=== PATIENT | female | born 1930 | race Caucasian/White ===

== ENCOUNTER 2017-02-26 21:03 | Inpatient (IN) | payer MEDICARE, OTHER ==
[2017-02-26] MEDS: SOD CHLORIDE 0.9% 500 ML IV (21:37)
[2017-02-26] MEDS: morphine 4 MG/ML VIAL IV (21:38)
[2017-02-26] MEDS: ONDANSETRON 4 MG INJ IV (21:38)
[2017-02-26 21:40] LABS: ADD MAN DIFF? NO
[2017-02-26 21:44] LABS: BASOPHILS % 0.3 % (0.0-2.0); EOSINOPHILS # 0.1 10^3/ul (0.0-0.5); EOSINOPHILS % 1.2 % (0.0-7.0); HEMATOCRIT 39.5 % (37.0-47.0); HEMOGLOBIN 12.2 g/dl (12.0-16.0); LYMPHOCYTES # 1.7 10^3/ul (0.8-2.9); LYMPHOCYTES % 15.2 % (15.0-51.0); MEAN CORPUSCULAR HEMOGLOBIN 30.7 pg (29.0-33.0); MEAN CORPUSCULAR HGB CONC 30.9 g/dl (32.0-37.0); MEAN CORPUSCULAR VOLUME 99.2 fl (82.0-101.0); MEAN PLATELET VOLUME 10.2 fl (7.4-10.4); MONOCYTE # 0.6 10^3/ul (0.3-0.9); MONOCYTES % 5.1 % (0.0-11.0); NEUTROPHIL # 8.7 10^3/ul (1.6-7.5); NEUTROPHILS % 77.3 % (39.0-77.0); PLATELET COUNT 226 10^3/UL (140-415); RED BLOOD COUNT 3.98 10^6/ul (4.20-5.40); RED CELL DISTRIBUTION WIDTH 14.9 % (11.5-14.5)
[2017-02-26 21:44] LABS: WHITE BLOOD COUNT 11.3 10^3/ul (4.8-10.8)
[2017-02-26 22:04] LABS: INR 0.93; PROTIME 12.5 Sec (11.9-14.9)
[2017-02-26 22:07] LABS: ALANINE AMINOTRANSFERASE 26 IU/L (13-69); ALBUMIN 3.9 g/dl (3.3-4.9); ALBUMIN/GLOBULIN RATIO 1.11; ALKALINE PHOSPHATASE 115 IU/L (42-121); ANION GAP 13 (8-16); ASPARTATE AMINO TRANSFERASE 19 IU/L (15-46); BILIRUBIN,INDIRECT 0.1 mg/dl (0-1.1); BILIRUBIN,TOTAL 0.1 mg/dl (0.2-1.3); BLOOD UREA NITROGEN 26 mg/dl (7-20); CALCIUM 9.2 mg/dl (8.4-10.2); CARBON DIOXIDE 32 mmol/L (21-31); CHLORIDE 96 mmol/L (97-110); CREATININE 0.97 mg/dl (0.44-1.00); GLUCOSE 381 mg/dl (70-220); LIPASE 152 U/L (23-300); POTASSIUM 4.2 mmol/L (3.5-5.1); SODIUM 137 mmol/L (135-144); TOTAL PROTEIN 7.4 g/dl (6.1-8.1)
[2017-02-26 22:21] LABS: TROPONIN-I < 0.012 ng/ml (0.00-0.12)
[2017-02-26] MEDS: HYDROmorphONE 1 MG/ML SYG IV (22:33)
[2017-02-26 23:01] LABS: ADD UMIC NO; UR ASCORBIC ACID 40 mg/dL (NEGATIVE); UR BILIRUBIN (Dip) NEGATIVE (NEGATIVE); UR BLOOD (Dip) NEGATIVE (NEGATIVE); UR CLARITY CLEAR (CLEAR); UR COLOR YELLOW (YELLOW); UR GLUCOSE (Dip) 3+ mg/dL (NEGATIVE); UR KETONES (Dip) NEGATIVE (NEGATIVE); UR LEUKOCYTE ESTERASE (Dip) NEGATIVE Leu/ul (NEGATIVE); UR NITRITE (Dip) NEGATIVE (NEGATIVE); UR SPECIFIC GRAVITY (Dip) 1.017 (1.003-1.030); UR TOTAL PROTEIN (Dip) NEGATIVE (NEGATIVE); UR UROBILINOGEN (Dip) NEGATIVE (NEGATIVE)
[2017-02-27] MEDS: HYDROmorphONE 1 MG/ML SYG IV (02:14)
[2017-02-27] MEDS ORDERED: HYDROmorphONE 1 MG/ML SYG (11:24)
[2017-02-27] MEDS ORDERED: GLUCAGON 1 MG INJ IM (13:00)
[2017-02-27] MEDS ORDERED: GLUCOSE GEL 15 GRAM TUBE PO ×2 (13:00)
[2017-02-27] MEDS ORDERED: DEXTROSE 50% 50 ML SYRINGE IV ×2 (13:00)
[2017-02-27] MEDS ORDERED: GLUCOSE GEL 15 GRAM TUBE BUCCAL (13:00)
[2017-02-27] MEDS ORDERED: LEVALBUTEROL (NEB) 0.63 MG/3 ML AMP HHN (14:00)
[2017-02-27] MEDS: ONDANSETRON 4 MG INJ IV ×2 (16:34→20:52)
[2017-02-27] MEDS: morphine 2 MG INJ IV ×2 (16:34→20:52)
[2017-02-27] MEDS: INSULIN ASPART [NOVOLOG] 3 ML PEN SC ×3 (18:09→21:00)
[2017-02-27] MEDS: INSULIN GLARGINE [LANtus] 3 ML PEN SC (19:16)
[2017-02-27] MEDS: FAMOTIDINE 20 MG TAB PO (20:52)
[2017-02-27] MEDS: FERROUS SULFATE (EC) 325 MG TAB PO (20:53)
[2017-02-27] MEDS: ATORVASTATIN 40 MG TAB PO (20:53)
[2017-02-27] MEDS: METOPROLOL (XL) 50 MG TAB PO (20:54)
[2017-02-28] MEDS: ACCU-CHEK XX (02:00)
[2017-02-28] MEDS: morphine 2 MG INJ IV ×3 (02:07→15:19)
[2017-02-28 06:09] LABS: ADD MAN DIFF? NO
[2017-02-28 06:12] LABS: BASOPHILS % 0.3 % (0.0-2.0); EOSINOPHILS # 0.2 10^3/ul (0.0-0.5); EOSINOPHILS % 1.4 % (0.0-7.0); HEMATOCRIT 37.9 % (37.0-47.0); HEMOGLOBIN 11.6 g/dl (12.0-16.0); LYMPHOCYTES # 1.8 10^3/ul (0.8-2.9); LYMPHOCYTES % 12.2 % (15.0-51.0); MEAN CORPUSCULAR HEMOGLOBIN 30.9 pg (29.0-33.0); MEAN CORPUSCULAR HGB CONC 30.6 g/dl (32.0-37.0); MEAN CORPUSCULAR VOLUME 101.1 fl (82.0-101.0); MEAN PLATELET VOLUME 10.8 fl (7.4-10.4); MONOCYTE # 0.8 10^3/ul (0.3-0.9); MONOCYTES % 5.3 % (0.0-11.0); NEUTROPHIL # 11.8 10^3/ul (1.6-7.5); PLATELET COUNT 219 10^3/UL (140-415); RED BLOOD COUNT 3.75 10^6/ul (4.20-5.40); RED CELL DISTRIBUTION WIDTH 15.1 % (11.5-14.5)
[2017-02-28 06:12] LABS: WHITE BLOOD COUNT 14.7 10^3/ul (4.8-10.8)
[2017-02-28 06:51] LABS: ALANINE AMINOTRANSFERASE 26 IU/L (13-69); ALBUMIN 3.7 g/dl (3.3-4.9); ALBUMIN/GLOBULIN RATIO 1.15; ALKALINE PHOSPHATASE 90 IU/L (42-121); ANION GAP 14 (8-16); ASPARTATE AMINO TRANSFERASE 20 IU/L (15-46); BILIRUBIN,INDIRECT 0.5 mg/dl (0-1.1); BILIRUBIN,TOTAL 0.5 mg/dl (0.2-1.3); BLOOD UREA NITROGEN 17 mg/dl (7-20); CALCIUM 8.8 mg/dl (8.4-10.2); CARBON DIOXIDE 33 mmol/L (21-31); CHLORIDE 100 mmol/L (97-110); GLUCOSE 173 mg/dl (70-220); MAGNESIUM 1.9 mg/dl (1.7-2.5); POTASSIUM 4.5 mmol/L (3.5-5.1); SODIUM 142 mmol/L (135-144); TOTAL PROTEIN 6.9 g/dl (6.1-8.1)
[2017-02-28 07:08] LABS: FREE THYROXINE INDEX (Calc) 2.68 ug/ml (0.65-3.89); T3 UPTAKE 43.2 % (23.5-40.5); T4 (THYROXINE) 6.2 ug/dl (5.5-11.0)
[2017-02-28 08:12] LABS: HEMOGLOBIN A1C 7.1 % (0-5.9)
[2017-02-28] MEDS: INSULIN ASPART [NOVOLOG] 3 ML PEN SC ×7 (08:18→21:00)
[2017-02-28] MEDS: FAMOTIDINE 20 MG TAB PO ×2 (08:19→20:59)
[2017-02-28] MEDS: FERROUS SULFATE (EC) 325 MG TAB PO ×2 (08:19→20:59)
[2017-02-28] MEDS: ENOXAPARIN 30 MG/0.3 ML SYG SC (08:21)
[2017-02-28] MEDS: FUROSEMIDE 20 MG TAB PO (08:22)
[2017-02-28] MEDS: POTASSIUM CHLORIDE (SR) 20 MEQ TAB PO (08:23)
[2017-02-28] MEDS: METOPROLOL (XL) 50 MG TAB PO ×2 (08:23→20:59)
[2017-02-28] MEDS: ASPIRIN (EC) 81 MG TAB PO (08:23)
[2017-02-28] MEDS: HYDROmorphONE 1 MG/ML SYG IV (11:24)
[2017-02-28] MEDS: ONDANSETRON 4 MG INJ IV (15:19)
[2017-02-28 20:33] LABS: B-TYPE NATRIURETIC PEPTIDE 1010 PG/ML (0-450)
[2017-02-28] MEDS: ATORVASTATIN 40 MG TAB PO (20:59)
[2017-02-28] MEDS: INSULIN GLARGINE [LANtus] 3 ML PEN SC (21:00)
[2017-03-01] MEDS: morphine 2 MG INJ IV (00:35)
[2017-03-01] MEDS: ACCU-CHEK XX (01:56)
[2017-03-01] MEDS: LORAZEPAM 2 MG INJ IV (02:10)
[2017-03-01 02:34] LABS: TROPONIN-I 0.069 ng/ml (0.00-0.12)
[2017-03-01 07:57] LABS: ADD MAN DIFF? NO
[2017-03-01 08:06] LABS: WHITE BLOOD COUNT 12.2 10^3/ul (4.8-10.8)
[2017-03-01 08:06] LABS: BASOPHILS % 0.3 % (0.0-2.0); EOSINOPHILS # 0.3 10^3/ul (0.0-0.5); EOSINOPHILS % 2.1 % (0.0-7.0); HEMATOCRIT 37.7 % (37.0-47.0); HEMOGLOBIN 11.6 g/dl (12.0-16.0); LYMPHOCYTES # 1.9 10^3/ul (0.8-2.9); LYMPHOCYTES % 15.9 % (15.0-51.0); MEAN CORPUSCULAR HEMOGLOBIN 30.9 pg (29.0-33.0); MEAN CORPUSCULAR HGB CONC 30.8 g/dl (32.0-37.0); MEAN CORPUSCULAR VOLUME 100.3 fl (82.0-101.0); MEAN PLATELET VOLUME 10.7 fl (7.4-10.4); MONOCYTE # 0.9 10^3/ul (0.3-0.9); MONOCYTES % 7.2 % (0.0-11.0); NEUTROPHILS % 73.8 % (39.0-77.0); PLATELET COUNT 203 10^3/UL (140-415); RED BLOOD COUNT 3.76 10^6/ul (4.20-5.40); RED CELL DISTRIBUTION WIDTH 15.1 % (11.5-14.5)
[2017-03-01] MEDS: INSULIN ASPART [NOVOLOG] 3 ML PEN SC ×7 (08:19→22:49)
[2017-03-01 08:25] LABS: ALANINE AMINOTRANSFERASE 22 IU/L (13-69); ALBUMIN 3.7 g/dl (3.3-4.9); ALBUMIN/GLOBULIN RATIO 1.05; ALKALINE PHOSPHATASE 88 IU/L (42-121); ANION GAP 12 (8-16); ASPARTATE AMINO TRANSFERASE 22 IU/L (15-46); BILIRUBIN,INDIRECT 0.7 mg/dl (0-1.1); BILIRUBIN,TOTAL 0.7 mg/dl (0.2-1.3); BLOOD UREA NITROGEN 22 mg/dl (7-20); CALCIUM 9.2 mg/dl (8.4-10.2); CARBON DIOXIDE 37 mmol/L (21-31); CHLORIDE 94 mmol/L (97-110); CREATININE 0.73 mg/dl (0.44-1.00); GLUCOSE 202 mg/dl (70-220); INR 0.93; POTASSIUM 4.3 mmol/L (3.5-5.1); PROTIME 12.5 Sec (11.9-14.9); SODIUM 139 mmol/L (135-144); TOTAL PROTEIN 7.2 g/dl (6.1-8.1)
[2017-03-01 08:26] LABS: CHOL/HDL RATIO 2.3 RATIO; HDL CHOLESTEROL 56 mg/dl (33-92); LDL CHOLESTEROL,CALCULATED 53 mg/dl; PARTIAL THROMBOPLASTIN TIME 29.8 Sec (25.0-35.0); TRIGLYCERIDES 100 mg/dl (0-149)
[2017-03-01 08:26] LABS: CHOLESTEROL 129 mg/dl (100-200)
[2017-03-01 08:35] LABS: TROPONIN-I 0.051 ng/ml (0.00-0.12)
[2017-03-01] MEDS: POTASSIUM CHLORIDE (SR) 20 MEQ TAB PO (08:59)
[2017-03-01] MEDS: FAMOTIDINE 20 MG TAB PO ×2 (08:59→22:47)
[2017-03-01] MEDS: FERROUS SULFATE (EC) 325 MG TAB PO ×2 (08:59→22:47)
[2017-03-01] MEDS: METOPROLOL (XL) 50 MG TAB PO ×2 (09:00→22:47)
[2017-03-01] MEDS: FUROSEMIDE 20 MG TAB PO (09:00)
[2017-03-01] MEDS: ASPIRIN (EC) 81 MG TAB PO (09:00)
[2017-03-01] MEDS: ENOXAPARIN 30 MG/0.3 ML SYG SC (09:01)
[2017-03-01 13:08] LABS: TROPONIN-I 0.038 ng/ml (0.00-0.12)
[2017-03-01] MEDS: ATORVASTATIN 40 MG TAB PO (22:47)
[2017-03-01] MEDS: INSULIN GLARGINE [LANtus] 3 ML PEN SC (22:50)
[2017-03-02] MEDS: ACCU-CHEK XX (02:00)
[2017-03-02 06:21] LABS: ADD MAN DIFF? NO
[2017-03-02 06:39] LABS: BASOPHILS % 0.2 % (0.0-2.0); EOSINOPHILS # 0.1 10^3/ul (0.0-0.5); EOSINOPHILS % 0.8 % (0.0-7.0); HEMOGLOBIN 11.3 g/dl (12.0-16.0); LYMPHOCYTES # 1.5 10^3/ul (0.8-2.9); LYMPHOCYTES % 10.8 % (15.0-51.0); MEAN CORPUSCULAR HEMOGLOBIN 30.9 pg (29.0-33.0); MEAN CORPUSCULAR HGB CONC 31.4 g/dl (32.0-37.0); MEAN CORPUSCULAR VOLUME 98.4 fl (82.0-101.0); MEAN PLATELET VOLUME 10.8 fl (7.4-10.4); MONOCYTE # 0.9 10^3/ul (0.3-0.9); MONOCYTES % 6.9 % (0.0-11.0); NEUTROPHIL # 10.9 10^3/ul (1.6-7.5); NEUTROPHILS % 80.6 % (39.0-77.0); PLATELET COUNT 224 10^3/UL (140-415); RED BLOOD COUNT 3.66 10^6/ul (4.20-5.40); RED CELL DISTRIBUTION WIDTH 14.8 % (11.5-14.5)
[2017-03-02 06:39] LABS: WHITE BLOOD COUNT 13.5 10^3/ul (4.8-10.8)
[2017-03-02 07:17] LABS: ANION GAP 12 (8-16); BLOOD UREA NITROGEN 23 mg/dl (7-20); CALCIUM 8.6 mg/dl (8.4-10.2); CARBON DIOXIDE 36 mmol/L (21-31); CHLORIDE 94 mmol/L (97-110); GLUCOSE 212 mg/dl (70-220); POTASSIUM 4.1 mmol/L (3.5-5.1); SODIUM 138 mmol/L (135-144)
[2017-03-02] MEDS: INSULIN ASPART [NOVOLOG] 3 ML PEN SC ×9 (07:35→21:00)
[2017-03-02] MEDS: POTASSIUM CHLORIDE (SR) 20 MEQ TAB PO (08:37)
[2017-03-02] MEDS: FUROSEMIDE 20 MG TAB PO (08:37)
[2017-03-02] MEDS: FERROUS SULFATE (EC) 325 MG TAB PO ×2 (08:37→22:46)
[2017-03-02] MEDS: ASPIRIN (EC) 81 MG TAB PO (08:37)
[2017-03-02] MEDS: METOPROLOL (XL) 50 MG TAB PO ×2 (08:38→22:47)
[2017-03-02] MEDS: FAMOTIDINE 20 MG TAB PO ×2 (08:38→22:47)
[2017-03-02] MEDS: ENOXAPARIN 30 MG/0.3 ML SYG SC (08:39)
[2017-03-02] MEDS: ACETAMINOPHEN 325 MG TAB PO (17:29)
[2017-03-02] MEDS: ATORVASTATIN 40 MG TAB PO (22:48)
[2017-03-02] MEDS: INSULIN GLARGINE [LANtus] 3 ML PEN SC (23:04)
[2017-03-03] MEDS: ACCU-CHEK XX (02:00)
[2017-03-03] MEDS: INSULIN ASPART [NOVOLOG] 3 ML PEN SC ×8 (08:00→20:25)
[2017-03-03] MEDS: ASPIRIN (EC) 81 MG TAB PO (08:17)
[2017-03-03] MEDS: FAMOTIDINE 20 MG TAB PO ×2 (08:17→20:27)
[2017-03-03] MEDS: FERROUS SULFATE (EC) 325 MG TAB PO ×2 (08:17→20:28)
[2017-03-03] MEDS: FUROSEMIDE 20 MG TAB PO (08:18)
[2017-03-03] MEDS: POTASSIUM CHLORIDE (SR) 20 MEQ TAB PO (08:18)
[2017-03-03] MEDS: METOPROLOL (XL) 50 MG TAB PO ×2 (08:19→20:28)
[2017-03-03] MEDS: ENOXAPARIN 30 MG/0.3 ML SYG SC (08:25)
[2017-03-03] MEDS: morphine 2 MG INJ IV ×2 (12:51→17:58)
[2017-03-03] MEDS: INSULIN GLARGINE [LANtus] 3 ML PEN SC (20:24)
[2017-03-03] MEDS: ATORVASTATIN 40 MG TAB PO (20:27)
[2017-03-04] MEDS: ACCU-CHEK XX (02:00)
[2017-03-04 06:18] LABS: ADD MAN DIFF? NO
[2017-03-04] MEDS: ACETAMINOPHEN 325 MG TAB PO (06:31)
[2017-03-04 06:38] LABS: BASOPHILS % 0.4 % (0.0-2.0); EOSINOPHILS # 0.2 10^3/ul (0.0-0.5); EOSINOPHILS % 2.2 % (0.0-7.0); HEMATOCRIT 35.1 % (37.0-47.0); HEMOGLOBIN 11.4 g/dl (12.0-16.0); LYMPHOCYTES % 18.9 % (15.0-51.0); MEAN CORPUSCULAR HEMOGLOBIN 31.8 pg (29.0-33.0); MEAN CORPUSCULAR HGB CONC 32.5 g/dl (32.0-37.0); MEAN PLATELET VOLUME 10.6 fl (7.4-10.4); MONOCYTES % 9.8 % (0.0-11.0); NEUTROPHIL # 7.2 10^3/ul (1.6-7.5); NEUTROPHILS % 68.2 % (39.0-77.0); PLATELET COUNT 261 10^3/UL (140-415); RED BLOOD COUNT 3.58 10^6/ul (4.20-5.40); RED CELL DISTRIBUTION WIDTH 15.3 % (11.5-14.5)
[2017-03-04 06:38] LABS: WHITE BLOOD COUNT 10.6 10^3/ul (4.8-10.8)
[2017-03-04 06:55] LABS: ANION GAP 12 (8-16); BLOOD UREA NITROGEN 32 mg/dl (7-20); CALCIUM 8.7 mg/dl (8.4-10.2); CARBON DIOXIDE 36 mmol/L (21-31); CHLORIDE 95 mmol/L (97-110); CREATININE 0.76 mg/dl (0.44-1.00); GLUCOSE 196 mg/dl (70-220); SODIUM 139 mmol/L (135-144)
[2017-03-04] MEDS: INSULIN ASPART [NOVOLOG] 3 ML PEN SC ×7 (08:12→21:00)
[2017-03-04] MEDS: FAMOTIDINE 20 MG TAB PO ×2 (09:43→21:15)
[2017-03-04] MEDS: FUROSEMIDE 20 MG TAB PO (09:44)
[2017-03-04] MEDS: POTASSIUM CHLORIDE (SR) 20 MEQ TAB PO (09:44)
[2017-03-04] MEDS: FERROUS SULFATE (EC) 325 MG TAB PO ×2 (09:45→21:15)
[2017-03-04] MEDS: METOPROLOL (XL) 50 MG TAB PO ×2 (09:45→21:15)
[2017-03-04] MEDS: ASPIRIN (EC) 81 MG TAB PO (09:45)
[2017-03-04] MEDS: ENOXAPARIN 30 MG/0.3 ML SYG SC (09:47)
[2017-03-04] MEDS: ATORVASTATIN 40 MG TAB PO (21:15)
[2017-03-04] MEDS: INSULIN GLARGINE [LANtus] 3 ML PEN SC (21:17)
[2017-03-05] MEDS: ACCU-CHEK XX (02:00)
[2017-03-05] MEDS: morphine 2 MG INJ IV (04:42)
[2017-03-05 07:46] LABS: ADD MAN DIFF? NO
[2017-03-05 07:48] LABS: BASOPHILS % 0.3 % (0.0-2.0); EOSINOPHILS # 0.2 10^3/ul (0.0-0.5); EOSINOPHILS % 1.8 % (0.0-7.0); HEMATOCRIT 34.8 % (37.0-47.0); HEMOGLOBIN 10.9 g/dl (12.0-16.0); LYMPHOCYTES # 1.7 10^3/ul (0.8-2.9); LYMPHOCYTES % 16.6 % (15.0-51.0); MEAN CORPUSCULAR HEMOGLOBIN 30.9 pg (29.0-33.0); MEAN CORPUSCULAR HGB CONC 31.3 g/dl (32.0-37.0); MEAN CORPUSCULAR VOLUME 98.6 fl (82.0-101.0); MEAN PLATELET VOLUME 10.7 fl (7.4-10.4); MONOCYTES % 9.3 % (0.0-11.0); NEUTROPHIL # 7.4 10^3/ul (1.6-7.5); NEUTROPHILS % 71.5 % (39.0-77.0); PLATELET COUNT 285 10^3/UL (140-415); RED BLOOD COUNT 3.53 10^6/ul (4.20-5.40); RED CELL DISTRIBUTION WIDTH 15.1 % (11.5-14.5)
[2017-03-05 07:48] LABS: WHITE BLOOD COUNT 10.4 10^3/ul (4.8-10.8)
[2017-03-05 08:05] LABS: INR 0.99; PROTIME 13.2 Sec (11.9-14.9)
[2017-03-05 08:06] LABS: PARTIAL THROMBOPLASTIN TIME 30.5 Sec (25.0-35.0); THROMBIN TIME 14.2 SEC (13.8-19.1)
[2017-03-05 08:19] LABS: ANION GAP 13 (8-16); BLOOD UREA NITROGEN 28 mg/dl (7-20); CALCIUM 8.9 mg/dl (8.4-10.2); CARBON DIOXIDE 36 mmol/L (21-31); CHLORIDE 97 mmol/L (97-110); CREATININE 0.73 mg/dl (0.44-1.00); GLUCOSE 151 mg/dl (70-220); POTASSIUM 4.1 mmol/L (3.5-5.1); SODIUM 142 mmol/L (135-144)
[2017-03-05 08:22] LABS: PLATELET COUNT 285 10^3/UL (140-440)
[2017-03-05] MEDS: INSULIN ASPART [NOVOLOG] 3 ML PEN SC ×8 (10:05→22:16)
[2017-03-05] MEDS: ENOXAPARIN 30 MG/0.3 ML SYG SC (10:07)
[2017-03-05] MEDS: POTASSIUM CHLORIDE (SR) 20 MEQ TAB PO (10:08)
[2017-03-05] MEDS: FAMOTIDINE 20 MG TAB PO ×2 (10:08→20:19)
[2017-03-05] MEDS: FERROUS SULFATE (EC) 325 MG TAB PO ×2 (10:08→20:19)
[2017-03-05] MEDS: ASPIRIN (EC) 81 MG TAB PO (10:08)
[2017-03-05] MEDS: FUROSEMIDE 20 MG TAB PO (10:09)
[2017-03-05] MEDS: METOPROLOL (XL) 50 MG TAB PO ×2 (10:09→20:19)
[2017-03-05] MEDS: LORAZEPAM 2 MG INJ IV (10:19)
[2017-03-05] MEDS: INSULIN GLARGINE [LANtus] 3 ML PEN SC ×2 (20:16→22:14)
[2017-03-05] MEDS: ATORVASTATIN 40 MG TAB PO (20:19)
[2017-03-05] MEDS ORDERED: DEXTROSE 5%-0.45% NACL 1,000 ML IV (21:00)
[2017-03-05] MEDS ORDERED: INSULIN ASPART [NOVOLOG] 3 ML PEN SC (21:00)
[2017-03-05] MEDS: morphine LIQ (10 MG/5 ML) CUP PO (22:15)
[2017-03-06] MEDS: DEXTROSE 5%-0.45% NACL 1,000 ML IV (00:12)
[2017-03-06] MEDS: INSULIN ASPART [NOVOLOG] 3 ML PEN SC ×6 (01:10→20:47)
[2017-03-06] MEDS ORDERED: POLYMYXIN/BACITRACIN 1L IRRIG (06:52)
[2017-03-06] MEDS ORDERED: CEFAZOLIN 1 GM INJ (07:00)
[2017-03-06] MEDS: POLYMYXIN/BACITRACIN 1L IRRIG IRR (07:11)
[2017-03-06 07:14] LABS: ADD MAN DIFF? NO
[2017-03-06 07:20] LABS: PLATELET COUNT 314 10^3/UL (140-415)
[2017-03-06 07:39] LABS: ANION GAP 10 (8-16); BLOOD UREA NITROGEN 25 mg/dl (7-20); CARBON DIOXIDE 39 mmol/L (21-31); CHLORIDE 95 mmol/L (97-110); CREATININE 0.81 mg/dl (0.44-1.00); GLUCOSE 145 mg/dl (70-220); POTASSIUM 4.3 mmol/L (3.5-5.1); SODIUM 140 mmol/L (135-144)
[2017-03-06 07:40] LABS: PROTIME 13.3 Sec (11.9-14.9)
[2017-03-06 07:41] LABS: PARTIAL THROMBOPLASTIN TIME 30.2 Sec (25.0-35.0); THROMBIN TIME 15.5 SEC (13.8-19.1)
[2017-03-06 07:45] LABS: BASOPHILS % 0.3 % (0.0-2.0); EOSINOPHILS # 0.3 10^3/ul (0.0-0.5); EOSINOPHILS % 2.6 % (0.0-7.0); HEMATOCRIT 34.8 % (37.0-47.0); HEMOGLOBIN 11.2 g/dl (12.0-16.0); LYMPHOCYTES # 2.6 10^3/ul (0.8-2.9); LYMPHOCYTES % 25.2 % (15.0-51.0); MEAN CORPUSCULAR HEMOGLOBIN 31.8 pg (29.0-33.0); MEAN CORPUSCULAR HGB CONC 32.2 g/dl (32.0-37.0); MEAN CORPUSCULAR VOLUME 98.9 fl (82.0-101.0); MEAN PLATELET VOLUME 10.5 fl (7.4-10.4); MONOCYTE # 0.9 10^3/ul (0.3-0.9); MONOCYTES % 9.2 % (0.0-11.0); NEUTROPHIL # 6.3 10^3/ul (1.6-7.5); NEUTROPHILS % 62.2 % (39.0-77.0); PLATELET COUNT 320 10^3/UL (140-415); RED BLOOD COUNT 3.52 10^6/ul (4.20-5.40); RED CELL DISTRIBUTION WIDTH 15.2 % (11.5-14.5)
[2017-03-06 07:45] LABS: WHITE BLOOD COUNT 10.2 10^3/ul (4.8-10.8)
[2017-03-06] MEDS ORDERED: FENTAnyl 50 MCG/ML VIAL (08:02)
[2017-03-06] MEDS ORDERED: morphine SULFATE/PF (10 MG/10 ML) INJ (08:05)
[2017-03-06] MEDS ORDERED: PHENYLephrine (100 MCG/ML) 5ML SYG (08:46)
[2017-03-06] MEDS: POTASSIUM CHLORIDE (SR) 20 MEQ TAB PO (09:00)
[2017-03-06] MEDS: ENOXAPARIN 30 MG/0.3 ML SYG SC (09:00)
[2017-03-06] MEDS: FERROUS SULFATE (EC) 325 MG TAB PO ×2 (09:00→20:48)
[2017-03-06] MEDS: METOPROLOL (XL) 50 MG TAB PO ×2 (09:00→20:48)
[2017-03-06] MEDS: FAMOTIDINE 20 MG TAB PO ×2 (09:00→20:48)
[2017-03-06] MEDS: ASPIRIN (EC) 81 MG TAB PO (09:00)
[2017-03-06] MEDS: FUROSEMIDE 20 MG TAB PO (09:00)
[2017-03-06] MEDS ORDERED: ALBUTEROL 0.083% (NEB) 2.5 MG/3 ML AMP HHN (09:30)
[2017-03-06] MEDS ORDERED: hydrALAzine 20 MG INJ IV (09:30)
[2017-03-06] MEDS ORDERED: IPRATROPIUM (NEB) 0.5 MG/2.5 ML AMP HHN (09:30)
[2017-03-06] MEDS ORDERED: EPHEDrine SULFATE 50 MG/5 ML SYG IV (09:30)
[2017-03-06] MEDS ORDERED: MEPERIDINE 25 MG INJ IV (09:30)
[2017-03-06] MEDS ORDERED: OXYCODONE/ACETAMINOPHEN (5/325) TAB PO ×2 (09:30)
[2017-03-06] MEDS ORDERED: KETOROLAC 15 MG INJ IV (09:30)
[2017-03-06] MEDS ORDERED: HYDROmorphONE (0.2 MG/ML) 10ML SYG IV ×3 (09:30)
[2017-03-06] MEDS ORDERED: DIPHENHYDRAMINE 50 MG INJ IV ×2 (09:30)
[2017-03-06] MEDS ORDERED: NALBUPHINE HCL (10 MG/1 ML) INJ IV (09:30)
[2017-03-06] MEDS ORDERED: FENTAnyl 50 MCG/ML VIAL IV ×3 (09:30)
[2017-03-06] MEDS ORDERED: LABETALOL HCL 20MG INJ IV (09:30)
[2017-03-06] MEDS ORDERED: ONDANSETRON 4 MG INJ IV ×2 (09:30)
[2017-03-06] MEDS ORDERED: MIDAZOLAM 1 MG/ML 2 ML INJ IV (09:30)
[2017-03-06] MEDS ORDERED: NALOXONE (0.4 MG/ML) INJ IV (09:30)
[2017-03-06] MEDS ORDERED: HYDROmorphONE 0.5 MG/0.5 ML SYG IV ×2 (09:30)
[2017-03-06] MEDS ORDERED: TRIMETHOBENZAMIDE 100 MG/ML VIAL IM (09:30)
[2017-03-06] MEDS ORDERED: morphine 4 MG/ML VIAL IV (10:30)
[2017-03-06] MEDS ORDERED: CEFAZOLIN 1 GM/50 ML (PMX) 50 ML IVPB (10:30)
[2017-03-06 11:15] LABS: ADD MAN DIFF? NO
[2017-03-06 11:17] LABS: BASOPHIL # 0.1 10^3/ul (0.0-0.1); BASOPHILS % 0.4 % (0.0-2.0); EOSINOPHILS # 0.2 10^3/ul (0.0-0.5); EOSINOPHILS % 1.6 % (0.0-7.0); HEMATOCRIT 31.1 % (37.0-47.0); HEMOGLOBIN 9.8 g/dl (12.0-16.0); LYMPHOCYTES # 1.9 10^3/ul (0.8-2.9); MEAN CORPUSCULAR HEMOGLOBIN 31.6 pg (29.0-33.0); MEAN CORPUSCULAR HGB CONC 31.5 g/dl (32.0-37.0); MEAN CORPUSCULAR VOLUME 100.3 fl (82.0-101.0); MEAN PLATELET VOLUME 10.4 fl (7.4-10.4); MONOCYTE # 0.9 10^3/ul (0.3-0.9); NEUTROPHIL # 10.2 10^3/ul (1.6-7.5); NEUTROPHILS % 76.2 % (39.0-77.0); NUCLEATED RED BLOOD CELLS% 0.1 /100WBC (0.0-0.0); PLATELET COUNT 278 10^3/UL (140-415); RED CELL DISTRIBUTION WIDTH 15.1 % (11.5-14.5)
[2017-03-06 11:17] LABS: WHITE BLOOD COUNT 13.4 10^3/ul (4.8-10.8)
[2017-03-06] MEDS: D5W-0.45 NACL + KCL 20 MEQ 1,000 ML IV (12:04)
[2017-03-06 13:46] LABS: ANION GAP 12 (8-16); BLOOD UREA NITROGEN 25 mg/dl (7-20); CALCIUM 8.8 mg/dl (8.4-10.2); CARBON DIOXIDE 34 mmol/L (21-31); CHLORIDE 96 mmol/L (97-110); CREATININE 0.75 mg/dl (0.44-1.00); GLUCOSE 255 mg/dl (70-220); POTASSIUM 4.4 mmol/L (3.5-5.1); SODIUM 138 mmol/L (135-144)
[2017-03-06] MEDS: 1/2 NS + KCL 20 MEQ 1,000 ML IV (14:53)
[2017-03-06] MEDS: CEFAZOLIN 1 GM/50 ML (PMX) 50 ML IVPB ×2 (14:53→22:30)
[2017-03-06] MEDS: INSULIN GLARGINE [LANtus] 3 ML PEN SC (20:46)
[2017-03-06] MEDS: ATORVASTATIN 40 MG TAB PO (20:48)
[2017-03-06] MEDS: HYDROCODONE/APAP (5/325) TAB PO (20:49)
[2017-03-07] MEDS: INSULIN ASPART [NOVOLOG] 3 ML PEN SC ×5 (01:44→17:51)
[2017-03-07] MEDS: CEFAZOLIN 1 GM/50 ML (PMX) 50 ML IVPB ×3 (05:41→21:42)
[2017-03-07] MEDS: 1/2 NS + KCL 20 MEQ 1,000 ML IV ×2 (06:24→21:30)
[2017-03-07 06:38] LABS: ADD MAN DIFF? NO
[2017-03-07 06:45] LABS: WHITE BLOOD COUNT 12.4 10^3/ul (4.8-10.8)
[2017-03-07 06:45] LABS: BASOPHILS % 0.2 % (0.0-2.0); EOSINOPHILS # 0.2 10^3/ul (0.0-0.5); EOSINOPHILS % 1.7 % (0.0-7.0); HEMATOCRIT 25.2 % (37.0-47.0); HEMOGLOBIN 8.2 g/dl (12.0-16.0); LYMPHOCYTES # 1.6 10^3/ul (0.8-2.9); LYMPHOCYTES % 12.6 % (15.0-51.0); MEAN CORPUSCULAR HEMOGLOBIN 31.8 pg (29.0-33.0); MEAN CORPUSCULAR HGB CONC 32.5 g/dl (32.0-37.0); MEAN CORPUSCULAR VOLUME 97.7 fl (82.0-101.0); MEAN PLATELET VOLUME 10.6 fl (7.4-10.4); MONOCYTE # 1.2 10^3/ul (0.3-0.9); MONOCYTES % 9.3 % (0.0-11.0); NEUTROPHIL # 9.3 10^3/ul (1.6-7.5); NEUTROPHILS % 75.7 % (39.0-77.0); NUCLEATED RED BLOOD CELLS # 0.1 10^3/ul (0.0-0.0); NUCLEATED RED BLOOD CELLS% 0.7 /100WBC (0.0-0.0); PLATELET COUNT 298 10^3/UL (140-415); RED BLOOD COUNT 2.58 10^6/ul (4.20-5.40); RED CELL DISTRIBUTION WIDTH 15.2 % (11.5-14.5)
[2017-03-07] MEDS: FUROSEMIDE 20 MG TAB PO (08:58)
[2017-03-07] MEDS: FAMOTIDINE 20 MG TAB PO ×2 (08:59→21:35)
[2017-03-07] MEDS: ASPIRIN (EC) 81 MG TAB PO (08:59)
[2017-03-07] MEDS: METOPROLOL (XL) 50 MG TAB PO ×2 (08:59→21:34)
[2017-03-07] MEDS: FERROUS SULFATE (EC) 325 MG TAB PO ×2 (08:59→21:35)
[2017-03-07] MEDS: POLYETHYLENE GLYCOL 17 GM PACKET PO (09:00)
[2017-03-07] MEDS: POTASSIUM CHLORIDE (SR) 20 MEQ TAB PO (09:00)
[2017-03-07] MEDS: DOCUSATE SODIUM 100 MG CAP PO ×2 (09:00→21:35)
[2017-03-07] MEDS: ENOXAPARIN 40 MG/0.4 ML SYG SC (09:07)
[2017-03-07] MEDS: HYDROCODONE/APAP (5/325) TAB PO ×2 (09:16→23:11)
[2017-03-07] MEDS ORDERED: INSULIN ASPART [NOVOLOG] 3 ML PEN SC (21:00)
[2017-03-07] MEDS: ATORVASTATIN 40 MG TAB PO (21:35)
[2017-03-07] MEDS: Insulin NOVOLOG SS MILD Algorithm (SS with meals and bedtime) SC (21:38)
[2017-03-07] MEDS: INSULIN GLARGINE [LANtus] 3 ML PEN SC (21:41)
[2017-03-08] MEDS: 1/2 NS + KCL 20 MEQ 1,000 ML IV ×2 (01:07→17:09)
[2017-03-08] MEDS: CEFAZOLIN 1 GM/50 ML (PMX) 50 ML IVPB ×3 (05:35→22:16)
[2017-03-08] MEDS: Insulin NOVOLOG SS MILD Algorithm (SS with meals and bedtime) SC ×4 (07:30→21:00)
[2017-03-08] MEDS: DOCUSATE SODIUM 100 MG CAP PO ×2 (08:14→22:03)
[2017-03-08] MEDS: FUROSEMIDE 20 MG TAB PO (08:14)
[2017-03-08] MEDS: FERROUS SULFATE (EC) 325 MG TAB PO ×2 (08:14→22:04)
[2017-03-08] MEDS: POTASSIUM CHLORIDE (SR) 20 MEQ TAB PO (08:14)
[2017-03-08] MEDS: ASPIRIN (EC) 81 MG TAB PO (08:14)
[2017-03-08] MEDS: FAMOTIDINE 20 MG TAB PO ×2 (08:14→22:04)
[2017-03-08] MEDS: METOPROLOL (XL) 50 MG TAB PO ×2 (08:15→22:05)
[2017-03-08] MEDS: ENOXAPARIN 40 MG/0.4 ML SYG SC (08:16)
[2017-03-08] MEDS: HYDROCODONE/APAP (5/325) TAB PO ×2 (09:11→15:55)
[2017-03-08] MEDS: POLYETHYLENE GLYCOL 17 GM PACKET PO (09:11)
[2017-03-08] MEDS: INSULIN ASPART [NOVOLOG] 3 ML PEN SC (17:42)
[2017-03-08] MEDS: ATORVASTATIN 40 MG TAB PO (22:04)
[2017-03-08] MEDS: INSULIN GLARGINE [LANtus] 3 ML PEN SC (22:06)
[2017-03-09] MEDS: CEFAZOLIN 1 GM/50 ML (PMX) 50 ML IVPB ×3 (05:55→21:07)
[2017-03-09] MEDS: METOPROLOL (XL) 50 MG TAB PO ×2 (08:52→20:55)
[2017-03-09] MEDS: FAMOTIDINE 20 MG TAB PO ×2 (08:52→20:53)
[2017-03-09] MEDS: FUROSEMIDE 20 MG TAB PO (08:52)
[2017-03-09] MEDS: POLYETHYLENE GLYCOL 17 GM PACKET PO (08:52)
[2017-03-09] MEDS: ASPIRIN (EC) 81 MG TAB PO (08:52)
[2017-03-09] MEDS: POTASSIUM CHLORIDE (SR) 20 MEQ TAB PO (08:52)
[2017-03-09] MEDS: DOCUSATE SODIUM 100 MG CAP PO ×2 (08:52→20:53)
[2017-03-09] MEDS: FERROUS SULFATE (EC) 325 MG TAB PO ×2 (08:52→20:57)
[2017-03-09] MEDS: INSULIN ASPART [NOVOLOG] 3 ML PEN SC ×3 (08:53→17:40)
[2017-03-09] MEDS: Insulin NOVOLOG SS MILD Algorithm (SS with meals and bedtime) SC ×4 (08:54→20:59)
[2017-03-09] MEDS: ENOXAPARIN 40 MG/0.4 ML SYG SC (08:55)
[2017-03-09] MEDS: 1/2 NS + KCL 20 MEQ 1,000 ML IV (11:04)
[2017-03-09] MEDS: HYDROCODONE/APAP (5/325) TAB PO (15:46)
[2017-03-09] MEDS: morphine LIQ (10 MG/5 ML) CUP PO ×2 (17:45→21:03)
[2017-03-09] MEDS: ATORVASTATIN 40 MG TAB PO (20:53)
[2017-03-09] MEDS: INSULIN GLARGINE [LANtus] 3 ML PEN SC (21:01)
[2017-03-10] MEDS: 1/2 NS + KCL 20 MEQ 1,000 ML IV ×2 (03:56→21:58)
[2017-03-10] MEDS: CEFAZOLIN 1 GM/50 ML (PMX) 50 ML IVPB ×3 (05:57→21:57)
[2017-03-10 06:15] LABS: ADD MAN DIFF? NO
[2017-03-10 06:22] LABS: WHITE BLOOD COUNT 11.2 10^3/ul (4.8-10.8)
[2017-03-10 06:22] LABS: BASOPHILS % 0.3 % (0.0-2.0); EOSINOPHILS # 0.4 10^3/ul (0.0-0.5); EOSINOPHILS % 3.5 % (0.0-7.0); HEMATOCRIT 22.9 % (37.0-47.0); HEMOGLOBIN 7.2 g/dl (12.0-16.0); LYMPHOCYTES # 2.6 10^3/ul (0.8-2.9); LYMPHOCYTES % 23.3 % (15.0-51.0); MEAN CORPUSCULAR HEMOGLOBIN 31.9 pg (29.0-33.0); MEAN CORPUSCULAR HGB CONC 31.4 g/dl (32.0-37.0); MEAN CORPUSCULAR VOLUME 101.3 fl (82.0-101.0); MEAN PLATELET VOLUME 10.6 fl (7.4-10.4); MONOCYTES % 8.7 % (0.0-11.0); NEUTROPHILS % 62.6 % (39.0-77.0); NUCLEATED RED BLOOD CELLS% 0.4 /100WBC (0.0-0.0); PLATELET COUNT 395 10^3/UL (140-415); RED BLOOD COUNT 2.26 10^6/ul (4.20-5.40); RED CELL DISTRIBUTION WIDTH 15.7 % (11.5-14.5)
[2017-03-10 07:11] LABS: ANION GAP 11 (8-16); BLOOD UREA NITROGEN 15 mg/dl (7-20); CALCIUM 8.6 mg/dl (8.4-10.2); CARBON DIOXIDE 33 mmol/L (21-31); CHLORIDE 99 mmol/L (97-110); CREATININE 0.72 mg/dl (0.44-1.00); SODIUM 139 mmol/L (135-144)
[2017-03-10] MEDS: Insulin NOVOLOG SS MILD Algorithm (SS with meals and bedtime) SC ×4 (07:30→20:31)
[2017-03-10] MEDS: POLYETHYLENE GLYCOL 17 GM PACKET PO (09:48)
[2017-03-10] MEDS: FERROUS SULFATE (EC) 325 MG TAB PO ×2 (09:49→20:39)
[2017-03-10] MEDS: DOCUSATE SODIUM 100 MG CAP PO ×2 (09:49→20:39)
[2017-03-10] MEDS: FUROSEMIDE 20 MG TAB PO (09:50)
[2017-03-10] MEDS: FAMOTIDINE 20 MG TAB PO ×2 (09:50→20:39)
[2017-03-10] MEDS: POTASSIUM CHLORIDE (SR) 20 MEQ TAB PO (09:50)
[2017-03-10] MEDS: METOPROLOL (XL) 50 MG TAB PO ×2 (09:50→20:42)
[2017-03-10] MEDS: ASPIRIN (EC) 81 MG TAB PO (09:50)
[2017-03-10] MEDS: ENOXAPARIN 40 MG/0.4 ML SYG SC (09:51)
[2017-03-10] MEDS: INSULIN ASPART [NOVOLOG] 3 ML PEN SC ×3 (09:53→17:36)
[2017-03-10 15:25] LABS: ADD MAN DIFF? NO
[2017-03-10 15:26] LABS: BASOPHILS % 0.2 % (0.0-2.0); EOSINOPHILS # 0.4 10^3/ul (0.0-0.5); EOSINOPHILS % 2.9 % (0.0-7.0); HEMATOCRIT 23.8 % (37.0-47.0); HEMOGLOBIN 7.4 g/dl (12.0-16.0); LYMPHOCYTES # 2.1 10^3/ul (0.8-2.9); MEAN CORPUSCULAR HEMOGLOBIN 31.6 pg (29.0-33.0); MEAN CORPUSCULAR HGB CONC 31.1 g/dl (32.0-37.0); MEAN CORPUSCULAR VOLUME 101.7 fl (82.0-101.0); MEAN PLATELET VOLUME 10.4 fl (7.4-10.4); MONOCYTES % 8.1 % (0.0-11.0); NEUTROPHIL # 8.6 10^3/ul (1.6-7.5); NEUTROPHILS % 70.3 % (39.0-77.0); NUCLEATED RED BLOOD CELLS # 0.1 10^3/ul (0.0-0.0); NUCLEATED RED BLOOD CELLS% 0.5 /100WBC (0.0-0.0); PLATELET COUNT 402 10^3/UL (140-415); RED BLOOD COUNT 2.34 10^6/ul (4.20-5.40); RED CELL DISTRIBUTION WIDTH 16.1 % (11.5-14.5)
[2017-03-10 15:26] LABS: WHITE BLOOD COUNT 12.2 10^3/ul (4.8-10.8)
[2017-03-10] MEDS: INSULIN GLARGINE [LANtus] 3 ML PEN SC (20:35)
[2017-03-10] MEDS: ATORVASTATIN 40 MG TAB PO (20:40)
[2017-03-11] MEDS: CEFAZOLIN 1 GM/50 ML (PMX) 50 ML IVPB ×3 (05:41→22:38)
[2017-03-11 06:31] LABS: ADD MAN DIFF? NO
[2017-03-11 06:35] LABS: WHITE BLOOD COUNT 10.6 10^3/ul (4.8-10.8)
[2017-03-11 06:35] LABS: BASOPHILS % 0.3 % (0.0-2.0); EOSINOPHILS # 0.3 10^3/ul (0.0-0.5); EOSINOPHILS % 2.4 % (0.0-7.0); HEMATOCRIT 22.7 % (37.0-47.0); HEMOGLOBIN 7.1 g/dl (12.0-16.0); LYMPHOCYTES % 18.8 % (15.0-51.0); MEAN CORPUSCULAR HGB CONC 31.3 g/dl (32.0-37.0); MEAN CORPUSCULAR VOLUME 102.3 fl (82.0-101.0); MEAN PLATELET VOLUME 10.3 fl (7.4-10.4); MONOCYTE # 0.9 10^3/ul (0.3-0.9); MONOCYTES % 8.3 % (0.0-11.0); NEUTROPHIL # 7.2 10^3/ul (1.6-7.5); NEUTROPHILS % 68.5 % (39.0-77.0); NUCLEATED RED BLOOD CELLS% 0.4 /100WBC (0.0-0.0); PLATELET COUNT 374 10^3/UL (140-415); RED BLOOD COUNT 2.22 10^6/ul (4.20-5.40); RED CELL DISTRIBUTION WIDTH 16.3 % (11.5-14.5)
[2017-03-11 07:03] LABS: ANION GAP 12 (8-16); BLOOD UREA NITROGEN 14 mg/dl (7-20); CALCIUM 8.6 mg/dl (8.4-10.2); CARBON DIOXIDE 33 mmol/L (21-31); CHLORIDE 99 mmol/L (97-110); CREATININE 0.75 mg/dl (0.44-1.00); GLUCOSE 140 mg/dl (70-220); POTASSIUM 4.8 mmol/L (3.5-5.1); SODIUM 139 mmol/L (135-144)
[2017-03-11] MEDS: Insulin NOVOLOG SS MILD Algorithm (SS with meals and bedtime) SC ×4 (08:27→20:51)
[2017-03-11] MEDS: INSULIN ASPART [NOVOLOG] 3 ML PEN SC ×3 (08:28→17:38)
[2017-03-11] MEDS: FERROUS SULFATE (EC) 325 MG TAB PO ×2 (08:36→20:40)
[2017-03-11] MEDS: FAMOTIDINE 20 MG TAB PO ×2 (08:36→20:39)
[2017-03-11] MEDS: FUROSEMIDE 20 MG TAB PO (08:36)
[2017-03-11] MEDS: DOCUSATE SODIUM 100 MG CAP PO ×2 (08:36→20:40)
[2017-03-11] MEDS: POTASSIUM CHLORIDE (SR) 20 MEQ TAB PO (08:36)
[2017-03-11] MEDS: POLYETHYLENE GLYCOL 17 GM PACKET PO (08:36)
[2017-03-11] MEDS: METOPROLOL (XL) 50 MG TAB PO ×2 (08:36→20:40)
[2017-03-11] MEDS: ENOXAPARIN 40 MG/0.4 ML SYG SC (08:40)
[2017-03-11] MEDS: morphine LIQ (10 MG/5 ML) CUP PO ×3 (08:44→23:29)
[2017-03-11] MEDS: ATORVASTATIN 40 MG TAB PO (20:40)
[2017-03-11] MEDS: INSULIN GLARGINE [LANtus] 3 ML PEN SC (20:50)
[2017-03-11] MEDS: SOD CHLORIDE 0.9% 250 ML IV* (22:29)
[2017-03-12 05:53] LABS: ADD MAN DIFF? NO
[2017-03-12 05:55] LABS: BASOPHILS % 0.1 % (0.0-2.0); EOSINOPHILS # 0.3 10^3/ul (0.0-0.5); EOSINOPHILS % 3.1 % (0.0-7.0); HEMOGLOBIN 7.6 g/dl (12.0-16.0); LYMPHOCYTES # 2.6 10^3/ul (0.8-2.9); LYMPHOCYTES % 24.7 % (15.0-51.0); MEAN CORPUSCULAR HEMOGLOBIN 31.5 pg (29.0-33.0); MEAN CORPUSCULAR HGB CONC 30.4 g/dl (32.0-37.0); MEAN CORPUSCULAR VOLUME 103.7 fl (82.0-101.0); MEAN PLATELET VOLUME 10.1 fl (7.4-10.4); MONOCYTES % 9.1 % (0.0-11.0); NEUTROPHIL # 6.5 10^3/ul (1.6-7.5); NEUTROPHILS % 61.6 % (39.0-77.0); NUCLEATED RED BLOOD CELLS% 0.4 /100WBC (0.0-0.0); PLATELET COUNT 422 10^3/UL (140-415); RED BLOOD COUNT 2.41 10^6/ul (4.20-5.40); RED CELL DISTRIBUTION WIDTH 16.9 % (11.5-14.5)
[2017-03-12 05:55] LABS: WHITE BLOOD COUNT 10.5 10^3/ul (4.8-10.8)
[2017-03-12 06:26] LABS: ANION GAP 10 (8-16); BLOOD UREA NITROGEN 17 mg/dl (7-20); CALCIUM 9.1 mg/dl (8.4-10.2); CARBON DIOXIDE 37 mmol/L (21-31); CHLORIDE 98 mmol/L (97-110); GLUCOSE 127 mg/dl (70-220); POTASSIUM 5.3 mmol/L (3.5-5.1); SODIUM 140 mmol/L (135-144)
[2017-03-12] MEDS: Insulin NOVOLOG SS MILD Algorithm (SS with meals and bedtime) SC ×4 (08:29→21:01)
[2017-03-12] MEDS: FAMOTIDINE 20 MG TAB PO ×2 (08:30→20:51)
[2017-03-12] MEDS: INSULIN ASPART [NOVOLOG] 3 ML PEN SC ×3 (08:30→17:08)
[2017-03-12] MEDS: DOCUSATE SODIUM 100 MG CAP PO ×2 (08:30→20:51)
[2017-03-12] MEDS: FERROUS SULFATE (EC) 325 MG TAB PO ×2 (08:30→20:51)
[2017-03-12] MEDS: POTASSIUM CHLORIDE (SR) 20 MEQ TAB PO (08:31)
[2017-03-12] MEDS: POLYETHYLENE GLYCOL 17 GM PACKET PO (08:31)
[2017-03-12] MEDS: FUROSEMIDE 20 MG TAB PO (08:31)
[2017-03-12] MEDS: METOPROLOL (XL) 50 MG TAB PO ×2 (08:31→20:52)
[2017-03-12] MEDS: ENOXAPARIN 40 MG/0.4 ML SYG SC (08:33)
[2017-03-12] MEDS: HYDROCODONE/APAP (5/325) TAB PO (09:35)
[2017-03-12] MEDS: ATORVASTATIN 40 MG TAB PO (20:51)
[2017-03-12] MEDS: INSULIN GLARGINE [LANtus] 3 ML PEN SC (21:02)
[2017-03-12] MEDS: morphine LIQ (10 MG/5 ML) CUP PO (21:30)
[2017-03-13 05:55] LABS: ADD MAN DIFF? NO
[2017-03-13 05:58] LABS: WHITE BLOOD COUNT 10.4 10^3/ul (4.8-10.8)
[2017-03-13 05:58] LABS: BASOPHILS % 0.3 % (0.0-2.0); EOSINOPHILS # 0.3 10^3/ul (0.0-0.5); EOSINOPHILS % 3.1 % (0.0-7.0); HEMATOCRIT 24.6 % (37.0-47.0); HEMOGLOBIN 7.5 g/dl (12.0-16.0); LYMPHOCYTES # 2.4 10^3/ul (0.8-2.9); LYMPHOCYTES % 22.6 % (15.0-51.0); MEAN CORPUSCULAR HEMOGLOBIN 31.8 pg (29.0-33.0); MEAN CORPUSCULAR HGB CONC 30.5 g/dl (32.0-37.0); MEAN CORPUSCULAR VOLUME 104.2 fl (82.0-101.0); MEAN PLATELET VOLUME 10.3 fl (7.4-10.4); MONOCYTE # 0.8 10^3/ul (0.3-0.9); MONOCYTES % 7.9 % (0.0-11.0); NEUTROPHIL # 6.8 10^3/ul (1.6-7.5); NUCLEATED RED BLOOD CELLS% 0.3 /100WBC (0.0-0.0); PLATELET COUNT 444 10^3/UL (140-415); RED BLOOD COUNT 2.36 10^6/ul (4.20-5.40); RED CELL DISTRIBUTION WIDTH 17.4 % (11.5-14.5)
[2017-03-13 07:10] LABS: ANION GAP 12 (8-16); BLOOD UREA NITROGEN 20 mg/dl (7-20); CALCIUM 9.1 mg/dl (8.4-10.2); CARBON DIOXIDE 35 mmol/L (21-31); CHLORIDE 97 mmol/L (97-110); CREATININE 0.75 mg/dl (0.44-1.00); GLUCOSE 136 mg/dl (70-220); POTASSIUM 4.5 mmol/L (3.5-5.1); SODIUM 139 mmol/L (135-144)
[2017-03-13] MEDS: Insulin NOVOLOG SS MILD Algorithm (SS with meals and bedtime) SC ×4 (07:30→20:43)
[2017-03-13] MEDS: ENOXAPARIN 40 MG/0.4 ML SYG SC (08:23)
[2017-03-13] MEDS: INSULIN ASPART [NOVOLOG] 3 ML PEN SC ×3 (08:24→17:11)
[2017-03-13] MEDS: POTASSIUM CHLORIDE (SR) 20 MEQ TAB PO (08:27)
[2017-03-13] MEDS: POLYETHYLENE GLYCOL 17 GM PACKET PO (08:27)
[2017-03-13] MEDS: DOCUSATE SODIUM 100 MG CAP PO ×2 (08:27→20:38)
[2017-03-13] MEDS: FERROUS SULFATE (EC) 325 MG TAB PO ×2 (08:27→20:38)
[2017-03-13] MEDS: FAMOTIDINE 20 MG TAB PO ×2 (08:28→20:38)
[2017-03-13] MEDS: METOPROLOL (XL) 50 MG TAB PO ×2 (08:28→20:44)
[2017-03-13] MEDS: FUROSEMIDE 20 MG TAB PO (08:28)
[2017-03-13] MEDS: ATORVASTATIN 40 MG TAB PO (20:38)
[2017-03-13] MEDS: INSULIN GLARGINE [LANtus] 3 ML PEN SC (20:41)
[2017-03-14] MEDS: LORAZEPAM 2 MG INJ IV (04:21)
[2017-03-14] MEDS: POTASSIUM CHLORIDE (SR) 20 MEQ TAB PO (08:37)
[2017-03-14] MEDS: FAMOTIDINE 20 MG TAB PO ×2 (08:37→20:52)
[2017-03-14] MEDS: FERROUS SULFATE (EC) 325 MG TAB PO ×2 (08:37→20:52)
[2017-03-14] MEDS: FUROSEMIDE 20 MG TAB PO (08:38)
[2017-03-14] MEDS: METOPROLOL (XL) 50 MG TAB PO ×2 (08:38→20:54)
[2017-03-14] MEDS: DOCUSATE SODIUM 100 MG CAP PO ×2 (08:38→20:51)
[2017-03-14] MEDS: ENOXAPARIN 40 MG/0.4 ML SYG SC (08:39)
[2017-03-14] MEDS: Insulin NOVOLOG SS MILD Algorithm (SS with meals and bedtime) SC ×4 (08:40→21:00)
[2017-03-14] MEDS: INSULIN ASPART [NOVOLOG] 3 ML PEN SC ×3 (08:40→17:44)
[2017-03-14] MEDS: POLYETHYLENE GLYCOL 17 GM PACKET PO (08:41)
[2017-03-14] MEDS: HYDROCODONE/APAP (5/325) TAB PO (13:50)
[2017-03-14] MEDS: ATORVASTATIN 40 MG TAB PO (20:52)
[2017-03-15 06:44] LABS: ADD MAN DIFF? NO
[2017-03-15 06:48] LABS: BASOPHILS % 0.4 % (0.0-2.0); EOSINOPHILS # 0.3 10^3/ul (0.0-0.5); EOSINOPHILS % 3.1 % (0.0-7.0); HEMATOCRIT 29.6 % (37.0-47.0); HEMOGLOBIN 8.9 g/dl (12.0-16.0); LYMPHOCYTES # 2.4 10^3/ul (0.8-2.9); LYMPHOCYTES % 25.8 % (15.0-51.0); MEAN CORPUSCULAR HEMOGLOBIN 31.8 pg (29.0-33.0); MEAN CORPUSCULAR HGB CONC 30.1 g/dl (32.0-37.0); MEAN CORPUSCULAR VOLUME 105.7 fl (82.0-101.0); MEAN PLATELET VOLUME 10.1 fl (7.4-10.4); MONOCYTE # 0.6 10^3/ul (0.3-0.9); MONOCYTES % 6.6 % (0.0-11.0); NEUTROPHIL # 5.8 10^3/ul (1.6-7.5); NEUTROPHILS % 62.9 % (39.0-77.0); NUCLEATED RED BLOOD CELLS% 0.3 /100WBC (0.0-0.0); PLATELET COUNT 424 10^3/UL (140-415)
[2017-03-15 06:48] LABS: WHITE BLOOD COUNT 9.2 10^3/ul (4.8-10.8)
[2017-03-15 07:10] LABS: ANION GAP 13 (8-16); BLOOD UREA NITROGEN 19 mg/dl (7-20); CALCIUM 9.4 mg/dl (8.4-10.2); CARBON DIOXIDE 33 mmol/L (21-31); CHLORIDE 98 mmol/L (97-110); CREATININE 0.64 mg/dl (0.44-1.00); GLUCOSE 162 mg/dl (70-220); POTASSIUM 4.7 mmol/L (3.5-5.1); SODIUM 139 mmol/L (135-144)
[2017-03-15] MEDS: POLYETHYLENE GLYCOL 17 GM PACKET PO (09:03)
[2017-03-15] MEDS: FERROUS SULFATE (EC) 325 MG TAB PO ×2 (09:04→21:19)
[2017-03-15] MEDS: FUROSEMIDE 20 MG TAB PO (09:04)
[2017-03-15] MEDS: DOCUSATE SODIUM 100 MG CAP PO ×2 (09:04→21:19)
[2017-03-15] MEDS: POTASSIUM CHLORIDE (SR) 20 MEQ TAB PO (09:04)
[2017-03-15] MEDS: METOPROLOL (XL) 50 MG TAB PO ×2 (09:04→21:00)
[2017-03-15] MEDS: FAMOTIDINE 20 MG TAB PO ×2 (09:04→21:19)
[2017-03-15] MEDS: ENOXAPARIN 40 MG/0.4 ML SYG SC (09:05)
[2017-03-15] MEDS: INSULIN ASPART [NOVOLOG] 3 ML PEN SC ×3 (09:21→17:54)
[2017-03-15] MEDS: Insulin NOVOLOG SS MILD Algorithm (SS with meals and bedtime) SC ×4 (09:21→21:00)
[2017-03-15] MEDS: HYDROCODONE/APAP (5/325) TAB PO (14:51)
[2017-03-15] MEDS: ATORVASTATIN 40 MG TAB PO (21:18)
[2017-03-15] MEDS: INSULIN GLARGINE [LANtus] 3 ML PEN SC (21:22)
[2017-03-16] MEDS: LORAZEPAM 2 MG INJ IV ×2 (00:54→21:10)
[2017-03-16] MEDS: Insulin NOVOLOG SS MILD Algorithm (SS with meals and bedtime) SC ×4 (07:30→20:53)
[2017-03-16] MEDS: POLYETHYLENE GLYCOL 17 GM PACKET PO (08:13)
[2017-03-16] MEDS: POTASSIUM CHLORIDE (SR) 20 MEQ TAB PO (08:14)
[2017-03-16] MEDS: FAMOTIDINE 20 MG TAB PO ×2 (08:14→20:58)
[2017-03-16] MEDS: METOPROLOL (XL) 50 MG TAB PO ×2 (08:14→20:51)
[2017-03-16] MEDS: FERROUS SULFATE (EC) 325 MG TAB PO ×2 (08:14→20:50)
[2017-03-16] MEDS: FUROSEMIDE 20 MG TAB PO (08:15)
[2017-03-16] MEDS: ENOXAPARIN 40 MG/0.4 ML SYG SC (08:15)
[2017-03-16] MEDS: DOCUSATE SODIUM 100 MG CAP PO ×2 (08:15→20:50)
[2017-03-16] MEDS: INSULIN ASPART [NOVOLOG] 3 ML PEN SC ×3 (08:16→16:33)
[2017-03-16] MEDS: ATORVASTATIN 40 MG TAB PO (20:50)
[2017-03-16] MEDS: INSULIN GLARGINE [LANtus] 3 ML PEN SC (20:52)
[2017-03-17] MEDS: Insulin NOVOLOG SS MILD Algorithm (SS with meals and bedtime) SC ×4 (08:11→20:20)
[2017-03-17] MEDS: INSULIN ASPART [NOVOLOG] 3 ML PEN SC ×3 (08:11→17:33)
[2017-03-17] MEDS: ENOXAPARIN 40 MG/0.4 ML SYG SC (08:12)
[2017-03-17] MEDS: FUROSEMIDE 20 MG TAB PO (08:16)
[2017-03-17] MEDS: FAMOTIDINE 20 MG TAB PO ×2 (08:16→20:09)
[2017-03-17] MEDS: POLYETHYLENE GLYCOL 17 GM PACKET PO (08:16)
[2017-03-17] MEDS: FERROUS SULFATE (EC) 325 MG TAB PO ×2 (08:17→20:13)
[2017-03-17] MEDS: DOCUSATE SODIUM 100 MG CAP PO ×2 (08:17→20:09)
[2017-03-17] MEDS: POTASSIUM CHLORIDE (SR) 20 MEQ TAB PO (08:17)
[2017-03-17] MEDS: METOPROLOL (XL) 50 MG TAB PO ×2 (08:17→20:10)
[2017-03-17] MEDS: ATORVASTATIN 40 MG TAB PO (20:09)
[2017-03-17] MEDS: INSULIN GLARGINE [LANtus] 3 ML PEN SC (20:19)
[2017-03-17] MEDS: HYDROCODONE/APAP (5/325) TAB PO (22:03)
[2017-03-18] MEDS: Insulin NOVOLOG SS MILD Algorithm (SS with meals and bedtime) SC ×4 (08:51→21:00)
[2017-03-18] MEDS: INSULIN ASPART [NOVOLOG] 3 ML PEN SC ×3 (08:51→18:03)
[2017-03-18] MEDS: FAMOTIDINE 20 MG TAB PO ×2 (08:54→21:02)
[2017-03-18] MEDS: ENOXAPARIN 40 MG/0.4 ML SYG SC (08:54)
[2017-03-18] MEDS: POTASSIUM CHLORIDE (SR) 20 MEQ TAB PO (08:54)
[2017-03-18] MEDS: DOCUSATE SODIUM 100 MG CAP PO ×2 (08:54→21:02)
[2017-03-18] MEDS: FERROUS SULFATE (EC) 325 MG TAB PO ×2 (08:54→21:02)
[2017-03-18] MEDS: METOPROLOL (XL) 50 MG TAB PO ×2 (08:55→21:04)
[2017-03-18] MEDS: FUROSEMIDE 20 MG TAB PO (09:03)
[2017-03-18] MEDS: POLYETHYLENE GLYCOL 17 GM PACKET PO (09:03)
[2017-03-18] MEDS: BISACODYL 10 MG SUPP PR (18:49)
[2017-03-18] MEDS: HYDROCODONE/APAP (5/325) TAB PO (21:01)
[2017-03-18] MEDS: ATORVASTATIN 40 MG TAB PO (21:02)
[2017-03-18] MEDS: SENNA TAB PO (21:03)
[2017-03-18] MEDS: INSULIN GLARGINE [LANtus] 3 ML PEN SC (21:12)
[2017-03-19] MEDS: HYDROCODONE/APAP (5/325) TAB PO ×4 (02:01→21:38)
[2017-03-19 06:40] LABS: ADD MAN DIFF? NO
[2017-03-19 06:54] LABS: WHITE BLOOD COUNT 7.6 10^3/ul (4.8-10.8)
[2017-03-19 06:54] LABS: BASOPHILS % 0.4 % (0.0-2.0); EOSINOPHILS # 0.3 10^3/ul (0.0-0.5); EOSINOPHILS % 4.1 % (0.0-7.0); HEMATOCRIT 31.1 % (37.0-47.0); HEMOGLOBIN 9.4 g/dl (12.0-16.0); LYMPHOCYTES # 2.1 10^3/ul (0.8-2.9); LYMPHOCYTES % 27.4 % (15.0-51.0); MEAN CORPUSCULAR HGB CONC 30.2 g/dl (32.0-37.0); MEAN CORPUSCULAR VOLUME 105.8 fl (82.0-101.0); MEAN PLATELET VOLUME 10.2 fl (7.4-10.4); MONOCYTE # 0.5 10^3/ul (0.3-0.9); NEUTROPHIL # 4.6 10^3/ul (1.6-7.5); NEUTROPHILS % 60.6 % (39.0-77.0); PLATELET COUNT 373 10^3/UL (140-415); RED BLOOD COUNT 2.94 10^6/ul (4.20-5.40); RED CELL DISTRIBUTION WIDTH 18.4 % (11.5-14.5)
[2017-03-19 07:08] LABS: ANION GAP 11 (8-16); BLOOD UREA NITROGEN 20 mg/dl (7-20); CALCIUM 9.3 mg/dl (8.4-10.2); CARBON DIOXIDE 32 mmol/L (21-31); CHLORIDE 99 mmol/L (97-110); CREATININE 0.73 mg/dl (0.44-1.00); GLUCOSE 100 mg/dl (70-220); POTASSIUM 3.9 mmol/L (3.5-5.1); SODIUM 138 mmol/L (135-144)
[2017-03-19] MEDS: Insulin NOVOLOG SS MILD Algorithm (SS with meals and bedtime) SC ×4 (07:30→21:43)
[2017-03-19] MEDS: INSULIN ASPART [NOVOLOG] 3 ML PEN SC ×3 (07:35→17:57)
[2017-03-19] MEDS: FUROSEMIDE 20 MG TAB PO (09:00)
[2017-03-19] MEDS: METOPROLOL (XL) 50 MG TAB PO ×2 (09:00→21:39)
[2017-03-19] MEDS: SENNA TAB PO ×2 (10:04→21:39)
[2017-03-19] MEDS: FAMOTIDINE 20 MG TAB PO ×2 (10:05→21:39)
[2017-03-19] MEDS: POTASSIUM CHLORIDE (SR) 20 MEQ TAB PO (10:05)
[2017-03-19] MEDS: DOCUSATE SODIUM 100 MG CAP PO ×2 (10:05→21:42)
[2017-03-19] MEDS: FERROUS SULFATE (EC) 325 MG TAB PO ×2 (10:05→21:39)
[2017-03-19] MEDS: ENOXAPARIN 40 MG/0.4 ML SYG SC (10:09)
[2017-03-19] MEDS: POLYETHYLENE GLYCOL 17 GM PACKET PO (10:09)
[2017-03-19] MEDS: ATORVASTATIN 40 MG TAB PO (21:39)
[2017-03-19] MEDS: INSULIN GLARGINE [LANtus] 3 ML PEN SC (21:42)
[2017-03-20] MEDS: Insulin NOVOLOG SS MILD Algorithm (SS with meals and bedtime) SC ×3 (07:30→18:03)
[2017-03-20] MEDS: INSULIN ASPART [NOVOLOG] 3 ML PEN SC ×3 (08:19→18:03)
[2017-03-20] MEDS: POLYETHYLENE GLYCOL 17 GM PACKET PO (08:28)
[2017-03-20] MEDS: FERROUS SULFATE (EC) 325 MG TAB PO (08:29)
[2017-03-20] MEDS: POTASSIUM CHLORIDE (SR) 20 MEQ TAB PO (08:29)
[2017-03-20] MEDS: FAMOTIDINE 20 MG TAB PO (08:29)
[2017-03-20] MEDS: DOCUSATE SODIUM 100 MG CAP PO (08:29)
[2017-03-20] MEDS: SENNA TAB PO (08:29)
[2017-03-20] MEDS: METOPROLOL (XL) 50 MG TAB PO (08:30)
[2017-03-20] MEDS: FUROSEMIDE 20 MG TAB PO (08:30)
[2017-03-20] MEDS: ENOXAPARIN 40 MG/0.4 ML SYG SC (08:37)
== END 2017-03-20 18:23 | DRG 481 ==
LOC: PP2 23:37 → E/R 21:03
PROC: 0QS606Z Reposition Right Upper Femur with Intramedullary Internal Fixation Device, Open Approach (ICD-10-PCS; principal; 2017-03-06 07:30)
DX: S72.141A Displaced intertrochanteric fracture of right femur, initial encounter for closed fracture (principal); D62 Acute posthemorrhagic anemia; E11.22 Type 2 diabetes mellitus with diabetic chronic kidney disease; F03.90 Unspecified dementia, unspecified severity, without behavioral disturbance, psychotic disturbance, mood disturbance, and anxiety; E11.65 Type 2 diabetes mellitus with hyperglycemia; J44.9 Chronic obstructive pulmonary disease, unspecified; N18.9 Chronic kidney disease, unspecified; W18.30XA Fall on same level, unspecified, initial encounter; I12.9 Hypertensive chronic kidney disease with stage 1 through stage 4 chronic kidney disease, or unspecified chronic kidney disease; I48.0 Paroxysmal atrial fibrillation; R94.31 Abnormal electrocardiogram [ECG] [EKG]; F02.80 Dementia in other diseases classified elsewhere, unspecified severity, without behavioral disturbance, psychotic disturbance, mood disturbance, and anxiety
CPT/HCPCS: 36415; 71045; 72170; 73510; 73530; 76536; 80048; 80053; 80061; 81003; 82962; 83036; 83690; 83735; 83880; 84436; 84479; 84484; 85025; 85049; 85610; 85670; 85730; 86850; 86900; 86901; 86920; 87081; 87086; 93005; 93306; 96372; 96374; 96375; 96376; 97110; 97162; 97530; 99285-25

== ENCOUNTER 2017-05-28 13:54 | Inpatient (IN) | payer MEDICARE, OTHER ==
[2017-05-28 14:44] LABS: ADD MAN DIFF? NO
[2017-05-28 14:49] LABS: BASOPHIL # 0.1 10^3/ul (0.0-0.1); BASOPHILS % 0.5 % (0.0-2.0); EOSINOPHILS # 0.2 10^3/ul (0.0-0.5); EOSINOPHILS % 1.6 % (0.0-7.0); HEMATOCRIT 38.9 % (37.0-47.0); HEMOGLOBIN 12.5 g/dl (12.0-16.0); LYMPHOCYTES % 12.9 % (15.0-51.0); MEAN CORPUSCULAR HEMOGLOBIN 31.6 pg (29.0-33.0); MEAN CORPUSCULAR HGB CONC 32.1 g/dl (32.0-37.0); MEAN CORPUSCULAR VOLUME 98.2 fl (82.0-101.0); MEAN PLATELET VOLUME 10.3 fl (7.4-10.4); MONOCYTE # 0.8 10^3/ul (0.3-0.9); MONOCYTES % 5.1 % (0.0-11.0); NEUTROPHIL # 11.9 10^3/ul (1.6-7.5); NEUTROPHILS % 78.2 % (39.0-77.0); PLATELET COUNT 326 10^3/UL (140-415); RED BLOOD COUNT 3.96 10^6/ul (4.20-5.40); RED CELL DISTRIBUTION WIDTH 14.1 % (11.5-14.5)
[2017-05-28 14:49] LABS: WHITE BLOOD COUNT 15.3 10^3/ul (4.8-10.8)
[2017-05-28] MEDS: DIPHENHYDRAMINE 50 MG INJ IV (15:12)
[2017-05-28 15:30] LABS: ALANINE AMINOTRANSFERASE 28 IU/L (13-69); ALBUMIN 3.6 g/dl (3.3-4.9); ALBUMIN/GLOBULIN RATIO 0.97; ALKALINE PHOSPHATASE 171 IU/L (42-121); ANION GAP 18 (8-16); ASPARTATE AMINO TRANSFERASE 14 IU/L (15-46); BLOOD UREA NITROGEN 27 mg/dl (7-20); CALCIUM 9.2 mg/dl (8.4-10.2); CARBON DIOXIDE 33 mmol/L (21-31); CHLORIDE 95 mmol/L (97-110); CREATININE 0.75 mg/dl (0.44-1.00); GLUCOSE 163 mg/dl (70-220); LIPASE 68 U/L (23-300); POTASSIUM 4.1 mmol/L (3.5-5.1); SODIUM 142 mmol/L (135-144); TOTAL PROTEIN 7.3 g/dl (6.1-8.1)
[2017-05-28 15:30] LABS: LACTIC ACID 2.6 mmol/L (0.5-2.0)
[2017-05-28 15:43] LABS: TROPONIN-I < 0.012 ng/ml (0.00-0.12)
[2017-05-28] MEDS ORDERED: LORAZEPAM 2 MG INJ (15:48)
[2017-05-28] MEDS: LORAZEPAM 2 MG INJ IV (15:51)
[2017-05-28] MEDS: CEFEPIME 1GM/50 ML (PMX) 50 ML IVPB (16:00)
[2017-05-28] MEDS: SODIUM CHLORIDE 0.9% 1L BAG IV* (16:00)
[2017-05-28] MEDS: ALBUTEROL 0.083% (NEB) 2.5 MG/3 ML AMP NEB (16:03)
[2017-05-28] MEDS: IPRATROPIUM (NEB) 0.5 MG/2.5 ML AMP NEB (16:03)
[2017-05-28] MEDS: SOD CHLORIDE 0.9% 1,000 ML IV (16:11)
[2017-05-28] MEDS ORDERED: ONDANSETRON 4 MG INJ IV ×2 (16:30→18:30)
[2017-05-28] MEDS ORDERED: ACETAMINOPHEN 325 MG TAB PO (16:30)
[2017-05-28] MEDS: VANCOMYCIN 1 GM (PMX) 250 ML IVPB (17:21)
[2017-05-28] MEDS ORDERED: GLUCOSE GEL 15 GRAM TUBE PO ×2 (18:30)
[2017-05-28] MEDS ORDERED: NACL 0.9% 3 ML SYG IV (18:30)
[2017-05-28] MEDS ORDERED: GLUCAGON 1 MG INJ IM (18:30)
[2017-05-28] MEDS ORDERED: GLUCOSE GEL 15 GRAM TUBE BUCCAL (18:30)
[2017-05-28] MEDS ORDERED: DOCUSATE SODIUM 100 MG CAP PO (18:30)
[2017-05-28] MEDS ORDERED: DEXTROSE 50% 50 ML SYRINGE IV ×2 (18:30)
[2017-05-28 20:18] LABS: LACTIC ACID 1.4 mmol/L (0.5-2.0)
[2017-05-28] MEDS: FAMOTIDINE 20 MG TAB PO (21:30)
[2017-05-28] MEDS: ATORVASTATIN 40 MG TAB PO (21:30)
[2017-05-28] MEDS: INSULIN GLARGINE [LANtus] 3 ML PEN SC (23:05)
[2017-05-28] MEDS: INSULIN ASPART [NOVOLOG] 3 ML PEN SC (23:06)
[2017-05-29] MEDS: LORAZEPAM 2 MG INJ IV (00:42)
[2017-05-29] MEDS: ACCU-CHEK XX (02:00)
[2017-05-29] MEDS: INSULIN ASPART [NOVOLOG] 3 ML PEN SC ×7 (09:17→20:25)
[2017-05-29] MEDS: ENOXAPARIN 30 MG/0.3 ML SYG SC (09:18)
[2017-05-29] MEDS: ASPIRIN (EC) 81 MG TAB PO (09:20)
[2017-05-29] MEDS: FAMOTIDINE 20 MG TAB PO ×2 (09:20→20:25)
[2017-05-29 09:33] LABS: ADD MAN DIFF? NO
[2017-05-29 09:39] LABS: WHITE BLOOD COUNT 11.7 10^3/ul (4.8-10.8)
[2017-05-29 09:39] LABS: BASOPHIL # 0.1 10^3/ul (0.0-0.1); BASOPHILS % 0.4 % (0.0-2.0); EOSINOPHILS # 0.2 10^3/ul (0.0-0.5); EOSINOPHILS % 1.4 % (0.0-7.0); HEMATOCRIT 37.5 % (37.0-47.0); HEMOGLOBIN 11.8 g/dl (12.0-16.0); LYMPHOCYTES # 1.3 10^3/ul (0.8-2.9); LYMPHOCYTES % 11.3 % (15.0-51.0); MEAN CORPUSCULAR HEMOGLOBIN 31.3 pg (29.0-33.0); MEAN CORPUSCULAR HGB CONC 31.5 g/dl (32.0-37.0); MEAN CORPUSCULAR VOLUME 99.5 fl (82.0-101.0); MEAN PLATELET VOLUME 10.1 fl (7.4-10.4); MONOCYTE # 0.7 10^3/ul (0.3-0.9); MONOCYTES % 5.7 % (0.0-11.0); NEUTROPHIL # 9.3 10^3/ul (1.6-7.5); NEUTROPHILS % 79.7 % (39.0-77.0); PLATELET COUNT 286 10^3/UL (140-415); RED BLOOD COUNT 3.77 10^6/ul (4.20-5.40); RED CELL DISTRIBUTION WIDTH 14.2 % (11.5-14.5)
[2017-05-29 10:02] LABS: ANION GAP 12 (8-16); BLOOD UREA NITROGEN 14 mg/dl (7-20); CALCIUM 8.6 mg/dl (8.4-10.2); CARBON DIOXIDE 32 mmol/L (21-31); CHLORIDE 99 mmol/L (97-110); CREATININE 0.54 mg/dl (0.44-1.00); GLUCOSE 222 mg/dl (70-220); POTASSIUM 4.1 mmol/L (3.5-5.1); SODIUM 139 mmol/L (135-144)
[2017-05-29 10:14] LABS: HEMOGLOBIN A1C 8.7 % (0-5.9)
[2017-05-29] MEDS ORDERED: VANCOMYCIN IV PER PHARMACY XX (11:00)
[2017-05-29] MEDS: CEFEPIME 1GM/50 ML (PMX) 50 ML IVPB ×2 (12:39→20:24)
[2017-05-29] MEDS: VANCOMYCIN 1.25 GM in SOD CHLORIDE 0.9% 250 ML IVPB (13:48)
[2017-05-29] MEDS: METOPROLOL (XL) 50 MG TAB PO ×2 (13:49→20:25)
[2017-05-29] MEDS: DIGOXIN 500 MCG INJ IV (17:55)
[2017-05-29 19:03] LABS: TROPONIN-I < 0.012 ng/ml (0.00-0.12)
[2017-05-29] MEDS: ATORVASTATIN 40 MG TAB PO (20:24)
[2017-05-29] MEDS: INSULIN GLARGINE [LANtus] 3 ML PEN SC (20:32)
[2017-05-29] MEDS: DILTIAZEM 25 MG INJ IV (21:56)
[2017-05-29] MEDS: morphine 2 MG INJ IV (22:29)
[2017-05-30] MEDS: DIGOXIN 500 MCG INJ IV (00:44)
[2017-05-30] MEDS: ACCU-CHEK XX (02:00)
[2017-05-30 02:02] LABS: TROPONIN-I < 0.012 ng/ml (0.00-0.12)
[2017-05-30 06:06] LABS: ADD MAN DIFF? NO
[2017-05-30 06:09] LABS: WHITE BLOOD COUNT 12.4 10^3/ul (4.8-10.8)
[2017-05-30 06:09] LABS: BASOPHIL # 0.1 10^3/ul (0.0-0.1); BASOPHILS % 0.6 % (0.0-2.0); EOSINOPHILS # 0.3 10^3/ul (0.0-0.5); HEMATOCRIT 41.9 % (37.0-47.0); HEMOGLOBIN 13.1 g/dl (12.0-16.0); LYMPHOCYTES # 1.6 10^3/ul (0.8-2.9); LYMPHOCYTES % 12.7 % (15.0-51.0); MEAN CORPUSCULAR HEMOGLOBIN 31.6 pg (29.0-33.0); MEAN CORPUSCULAR HGB CONC 31.3 g/dl (32.0-37.0); MEAN PLATELET VOLUME 9.9 fl (7.4-10.4); MONOCYTE # 0.7 10^3/ul (0.3-0.9); NEUTROPHIL # 9.6 10^3/ul (1.6-7.5); NEUTROPHILS % 77.1 % (39.0-77.0); PLATELET COUNT 327 10^3/UL (140-415); RED BLOOD COUNT 4.15 10^6/ul (4.20-5.40)
[2017-05-30 06:31] LABS: ANION GAP 12 (8-16); BLOOD UREA NITROGEN 7 mg/dl (7-20); CALCIUM 9.5 mg/dl (8.4-10.2); CARBON DIOXIDE 37 mmol/L (21-31); CHLORIDE 100 mmol/L (97-110); CREATININE 0.55 mg/dl (0.44-1.00); GLUCOSE 112 mg/dl (70-220); SODIUM 145 mmol/L (135-144)
[2017-05-30 06:51] LABS: TROPONIN-I < 0.012 ng/ml (0.00-0.12)
[2017-05-30] MEDS: INSULIN ASPART [NOVOLOG] 3 ML PEN SC ×7 (08:00→20:56)
[2017-05-30] MEDS: METOPROLOL (XL) 50 MG TAB PO (08:11)
[2017-05-30] MEDS: ASPIRIN (EC) 325 MG TAB PO (08:11)
[2017-05-30] MEDS: CEFEPIME 1GM/50 ML (PMX) 50 ML IVPB ×2 (08:12→20:48)
[2017-05-30] MEDS: FAMOTIDINE 20 MG TAB PO ×2 (08:12→20:49)
[2017-05-30] MEDS: ENOXAPARIN 30 MG/0.3 ML SYG SC (08:17)
[2017-05-30] MEDS: morphine 2 MG INJ IV (10:34)
[2017-05-30] MEDS: LORAZEPAM 2 MG INJ IV (12:02)
[2017-05-30] MEDS: VANCOMYCIN 1.25 GM in SOD CHLORIDE 0.9% 250 ML IVPB (12:04)
[2017-05-30] MEDS: ATORVASTATIN 40 MG TAB PO (20:49)
[2017-05-30] MEDS: METOPROLOL (XL) 25 MG TAB PO (20:50)
[2017-05-30] MEDS: INSULIN GLARGINE [LANtus] 3 ML PEN SC (21:09)
[2017-05-31] MEDS: ACCU-CHEK XX (03:21)
[2017-05-31 07:15] LABS: ADD MAN DIFF? NO
[2017-05-31 07:23] LABS: WHITE BLOOD COUNT 11.4 10^3/ul (4.8-10.8)
[2017-05-31 07:23] LABS: BASOPHIL # 0.1 10^3/ul (0.0-0.1); BASOPHILS % 0.5 % (0.0-2.0); EOSINOPHILS # 0.4 10^3/ul (0.0-0.5); EOSINOPHILS % 3.6 % (0.0-7.0); HEMATOCRIT 38.8 % (37.0-47.0); HEMOGLOBIN 12.3 g/dl (12.0-16.0); LYMPHOCYTES # 1.3 10^3/ul (0.8-2.9); LYMPHOCYTES % 11.3 % (15.0-51.0); MEAN CORPUSCULAR HEMOGLOBIN 31.8 pg (29.0-33.0); MEAN CORPUSCULAR HGB CONC 31.7 g/dl (32.0-37.0); MEAN CORPUSCULAR VOLUME 100.3 fl (82.0-101.0); MEAN PLATELET VOLUME 9.7 fl (7.4-10.4); MONOCYTE # 0.6 10^3/ul (0.3-0.9); MONOCYTES % 5.5 % (0.0-11.0); NEUTROPHIL # 8.8 10^3/ul (1.6-7.5); NEUTROPHILS % 77.6 % (39.0-77.0); PLATELET COUNT 284 10^3/UL (140-415); RED BLOOD COUNT 3.87 10^6/ul (4.20-5.40); RED CELL DISTRIBUTION WIDTH 14.2 % (11.5-14.5)
[2017-05-31 07:42] LABS: ANION GAP 11 (8-16); BLOOD UREA NITROGEN 9 mg/dl (7-20); CALCIUM 8.9 mg/dl (8.4-10.2); CARBON DIOXIDE 37 mmol/L (21-31); CHLORIDE 99 mmol/L (97-110); CREATININE 0.55 mg/dl (0.44-1.00); GLUCOSE 144 mg/dl (70-220); POTASSIUM 3.9 mmol/L (3.5-5.1); SODIUM 143 mmol/L (135-144)
[2017-05-31] MEDS: INSULIN ASPART [NOVOLOG] 3 ML PEN SC ×7 (08:00→21:00)
[2017-05-31] MEDS: CEFEPIME 1GM/50 ML (PMX) 50 ML IVPB ×2 (08:21→21:09)
[2017-05-31] MEDS: ENOXAPARIN 30 MG/0.3 ML SYG SC (08:24)
[2017-05-31] MEDS: FAMOTIDINE 20 MG TAB PO ×2 (08:25→21:07)
[2017-05-31] MEDS: ASPIRIN (EC) 325 MG TAB PO (08:25)
[2017-05-31] MEDS: METOPROLOL (XL) 25 MG TAB PO ×2 (08:26→21:08)
[2017-05-31] MEDS: VANCOMYCIN 1.25 GM in SOD CHLORIDE 0.9% 250 ML IVPB (13:01)
[2017-05-31] MEDS: DIGOXIN 0.125 MG TAB PO (13:02)
[2017-05-31] MEDS: ATORVASTATIN 40 MG TAB PO (21:07)
[2017-05-31] MEDS: INSULIN GLARGINE [LANtus] 3 ML PEN SC (21:10)
[2017-05-31] MEDS: morphine LIQ (10 MG/5 ML) CUP PO (21:23)
[2017-06-01] MEDS: morphine 2 MG INJ IV (00:30)
[2017-06-01] MEDS: ACCU-CHEK XX (02:00)
[2017-06-01 06:42] LABS: ADD MAN DIFF? NO
[2017-06-01 06:48] LABS: ANION GAP 13 (8-16); BLOOD UREA NITROGEN 12 mg/dl (7-20); CARBON DIOXIDE 37 mmol/L (21-31); CHLORIDE 100 mmol/L (97-110); CREATININE 0.64 mg/dl (0.44-1.00); GLUCOSE 131 mg/dl (70-220); POTASSIUM 3.7 mmol/L (3.5-5.1); SODIUM 146 mmol/L (135-144)
[2017-06-01] MEDS: INSULIN ASPART [NOVOLOG] 3 ML PEN SC ×7 (08:00→21:00)
[2017-06-01] MEDS: ENOXAPARIN 30 MG/0.3 ML SYG SC (08:59)
[2017-06-01] MEDS: FAMOTIDINE 20 MG TAB PO ×2 (09:00→21:25)
[2017-06-01] MEDS: METOPROLOL (XL) 25 MG TAB PO ×2 (09:00→21:27)
[2017-06-01] MEDS: ASPIRIN (EC) 325 MG TAB PO (09:00)
[2017-06-01] MEDS: CEFEPIME 1GM/50 ML (PMX) 50 ML IVPB ×2 (09:01→21:25)
[2017-06-01] MEDS: ACETAMINOPHEN 325 MG TAB PO (09:56)
[2017-06-01 10:44] LABS: BASOPHILS % 0.3 % (0.0-2.0); EOSINOPHILS # 0.5 10^3/ul (0.0-0.5); EOSINOPHILS % 3.5 % (0.0-7.0); HEMATOCRIT 40.4 % (37.0-47.0); HEMOGLOBIN 12.3 g/dl (12.0-16.0); LYMPHOCYTES # 1.7 10^3/ul (0.8-2.9); LYMPHOCYTES % 12.6 % (15.0-51.0); MEAN CORPUSCULAR HEMOGLOBIN 31.3 pg (29.0-33.0); MEAN CORPUSCULAR HGB CONC 30.4 g/dl (32.0-37.0); MEAN CORPUSCULAR VOLUME 102.8 fl (82.0-101.0); MEAN PLATELET VOLUME 9.8 fl (7.4-10.4); MONOCYTE # 0.9 10^3/ul (0.3-0.9); NEUTROPHILS % 75.3 % (39.0-77.0); PLATELET COUNT 292 10^3/UL (140-415); RED BLOOD COUNT 3.93 10^6/ul (4.20-5.40); RED CELL DISTRIBUTION WIDTH 14.3 % (11.5-14.5)
[2017-06-01 10:44] LABS: WHITE BLOOD COUNT 13.3 10^3/ul (4.8-10.8)
[2017-06-01 11:11] LABS: ALANINE AMINOTRANSFERASE 16 IU/L (13-69); ALBUMIN 2.7 g/dl (3.3-4.9); ALKALINE PHOSPHATASE 113 IU/L (42-121); ASPARTATE AMINO TRANSFERASE 12 IU/L (15-46); TOTAL PROTEIN 5.7 g/dl (6.1-8.1)
[2017-06-01 11:32] LABS: CHOLESTEROL 103 mg/dl (100-200)
[2017-06-01 11:32] LABS: CHOL/HDL RATIO 3.2 RATIO; HDL CHOLESTEROL 32 mg/dl (33-92); LDL CHOLESTEROL,CALCULATED 41 mg/dl; TRIGLYCERIDES 150 mg/dl (0-149)
[2017-06-01] MEDS: DIGOXIN 0.125 MG TAB PO (13:00)
[2017-06-01] MEDS ORDERED: DEXTROSE 5%-0.45% NACL 500 ML IV (13:30)
[2017-06-01 13:38] LABS: VANCOMYCIN,TROUGH 10.6 ug/ml (10.0-20.0)
[2017-06-01] MEDS: DEXTROSE 5%-0.45% NACL 1,000 ML IV (14:53)
[2017-06-01] MEDS: VANCOMYCIN 1.25 GM in SOD CHLORIDE 0.9% 250 ML IVPB (14:54)
[2017-06-01] MEDS ORDERED: GUAIFENESIN/DM 5ML CUP PO (18:30)
[2017-06-01] MEDS ORDERED: HYDROCODONE/APAP (5/325) TAB PO (18:30)
[2017-06-01 19:27] LABS: TROPONIN-I < 0.012 ng/ml (0.00-0.12)
[2017-06-01] MEDS: ATORVASTATIN 40 MG TAB PO (21:25)
[2017-06-01] MEDS: BENAZEPRIL 10 MG TAB PO (21:27)
[2017-06-01] MEDS: INSULIN GLARGINE [LANtus] 3 ML PEN SC (22:14)
[2017-06-02] MEDS: ACCU-CHEK XX (02:00)
[2017-06-02] MEDS: morphine 2 MG INJ IV (03:50)
[2017-06-02 06:11] LABS: ADD MAN DIFF? NO
[2017-06-02 06:15] LABS: BASOPHILS % 0.3 % (0.0-2.0); EOSINOPHILS # 0.3 10^3/ul (0.0-0.5); EOSINOPHILS % 2.5 % (0.0-7.0); HEMATOCRIT 38.5 % (37.0-47.0); LYMPHOCYTES # 1.6 10^3/ul (0.8-2.9); LYMPHOCYTES % 13.4 % (15.0-51.0); MEAN CORPUSCULAR HEMOGLOBIN 31.4 pg (29.0-33.0); MEAN CORPUSCULAR HGB CONC 31.2 g/dl (32.0-37.0); MEAN CORPUSCULAR VOLUME 100.8 fl (82.0-101.0); MEAN PLATELET VOLUME 9.9 fl (7.4-10.4); MONOCYTE # 0.8 10^3/ul (0.3-0.9); MONOCYTES % 6.9 % (0.0-11.0); NEUTROPHIL # 9.1 10^3/ul (1.6-7.5); NEUTROPHILS % 76.1 % (39.0-77.0); PLATELET COUNT 284 10^3/UL (140-415); RED BLOOD COUNT 3.82 10^6/ul (4.20-5.40); RED CELL DISTRIBUTION WIDTH 14.5 % (11.5-14.5)
[2017-06-02 08:21] LABS: ANION GAP 15 (8-16); BLOOD UREA NITROGEN 8 mg/dl (7-20); CALCIUM 9.2 mg/dl (8.4-10.2); CARBON DIOXIDE 31 mmol/L (21-31); CHLORIDE 103 mmol/L (97-110); CREATININE 0.53 mg/dl (0.44-1.00); GLUCOSE 129 mg/dl (70-220); POTASSIUM 3.9 mmol/L (3.5-5.1); SODIUM 145 mmol/L (135-144)
[2017-06-02] MEDS: INSULIN ASPART [NOVOLOG] 3 ML PEN SC ×7 (08:33→20:43)
[2017-06-02] MEDS: ASPIRIN (EC) 325 MG TAB PO (08:34)
[2017-06-02] MEDS: ENOXAPARIN 30 MG/0.3 ML SYG SC (08:34)
[2017-06-02] MEDS: ACETAMINOPHEN 325 MG TAB PO (08:34)
[2017-06-02] MEDS: CEFEPIME 1GM/50 ML (PMX) 50 ML IVPB ×2 (08:35→20:39)
[2017-06-02] MEDS: BENAZEPRIL 10 MG TAB PO (08:35)
[2017-06-02] MEDS: FAMOTIDINE 20 MG TAB PO ×2 (08:35→20:42)
[2017-06-02] MEDS: METOPROLOL (XL) 25 MG TAB PO ×2 (08:36→20:43)
[2017-06-02 11:29] LABS: ADD MAN DIFF? NO
[2017-06-02 11:30] LABS: WHITE BLOOD COUNT 11.7 10^3/ul (4.8-10.8)
[2017-06-02 11:30] LABS: BASOPHILS % 0.1 % (0.0-2.0); EOSINOPHILS # 0.3 10^3/ul (0.0-0.5); EOSINOPHILS % 2.3 % (0.0-7.0); HEMATOCRIT 36.7 % (37.0-47.0); HEMOGLOBIN 11.6 g/dl (12.0-16.0); LYMPHOCYTES # 1.8 10^3/ul (0.8-2.9); LYMPHOCYTES % 15.1 % (15.0-51.0); MEAN CORPUSCULAR HEMOGLOBIN 31.6 pg (29.0-33.0); MEAN CORPUSCULAR HGB CONC 31.6 g/dl (32.0-37.0); MEAN PLATELET VOLUME 9.8 fl (7.4-10.4); MONOCYTES % 8.6 % (0.0-11.0); NEUTROPHIL # 8.5 10^3/ul (1.6-7.5); PLATELET COUNT 285 10^3/UL (140-415); RED BLOOD COUNT 3.67 10^6/ul (4.20-5.40); RED CELL DISTRIBUTION WIDTH 14.5 % (11.5-14.5)
[2017-06-02 11:52] LABS: ALANINE AMINOTRANSFERASE 17 IU/L (13-69); ALBUMIN/GLOBULIN RATIO 0.85; ALKALINE PHOSPHATASE 104 IU/L (42-121); ANION GAP 15 (8-16); ASPARTATE AMINO TRANSFERASE 13 IU/L (15-46); BILIRUBIN,INDIRECT 0.2 mg/dl (0-1.1); BILIRUBIN,TOTAL 0.2 mg/dl (0.2-1.3); BLOOD UREA NITROGEN 10 mg/dl (7-20); CALCIUM 8.9 mg/dl (8.4-10.2); CARBON DIOXIDE 36 mmol/L (21-31); CHLORIDE 99 mmol/L (97-110); CREATININE 0.63 mg/dl (0.44-1.00); GLUCOSE 106 mg/dl (70-220); POTASSIUM 3.5 mmol/L (3.5-5.1); SODIUM 146 mmol/L (135-144); TOTAL PROTEIN 6.5 g/dl (6.1-8.1)
[2017-06-02] MEDS: VANCOMYCIN 750 MG in DEXTROSE 5% 150 ML IVPB ×2 (12:19→20:44)
[2017-06-02] MEDS: DIGOXIN 0.125 MG TAB PO (15:13)
[2017-06-02] MEDS: BARIUM SULF 2% 450 ML BTL (BERRY SMOOTHIE) PO (15:13)
[2017-06-02] MEDS: ATORVASTATIN 40 MG TAB PO (20:42)
[2017-06-02] MEDS: INSULIN GLARGINE [LANtus] 3 ML PEN SC (21:00)
[2017-06-03] MEDS: LORAZEPAM 2 MG INJ IV ×2 (00:09→16:51)
[2017-06-03] MEDS: ACCU-CHEK XX (01:37)
[2017-06-03 06:59] LABS: ADD MAN DIFF? NO
[2017-06-03 07:13] LABS: BASOPHILS % 0.5 % (0.0-2.0); EOSINOPHILS # 0.2 10^3/ul (0.0-0.5); EOSINOPHILS % 2.8 % (0.0-7.0); HEMATOCRIT 39.1 % (37.0-47.0); LYMPHOCYTES # 1.5 10^3/ul (0.8-2.9); LYMPHOCYTES % 18.2 % (15.0-51.0); MEAN CORPUSCULAR HEMOGLOBIN 31.3 pg (29.0-33.0); MEAN CORPUSCULAR HGB CONC 30.7 g/dl (32.0-37.0); MEAN CORPUSCULAR VOLUME 101.8 fl (82.0-101.0); MONOCYTE # 0.7 10^3/ul (0.3-0.9); MONOCYTES % 8.3 % (0.0-11.0); NEUTROPHIL # 5.6 10^3/ul (1.6-7.5); PLATELET COUNT 278 10^3/UL (140-415); RED BLOOD COUNT 3.84 10^6/ul (4.20-5.40); RED CELL DISTRIBUTION WIDTH 14.6 % (11.5-14.5)
[2017-06-03 07:13] LABS: WHITE BLOOD COUNT 8.1 10^3/ul (4.8-10.8)
[2017-06-03 07:37] LABS: ALANINE AMINOTRANSFERASE 23 IU/L (13-69); ALBUMIN/GLOBULIN RATIO 0.88; ALKALINE PHOSPHATASE 120 IU/L (42-121); ANION GAP 12 (8-16); ASPARTATE AMINO TRANSFERASE 17 IU/L (15-46); BILIRUBIN,INDIRECT 0.1 mg/dl (0-1.1); BILIRUBIN,TOTAL 0.1 mg/dl (0.2-1.3); BLOOD UREA NITROGEN 11 mg/dl (7-20); CALCIUM 8.9 mg/dl (8.4-10.2); CARBON DIOXIDE 36 mmol/L (21-31); CHLORIDE 100 mmol/L (97-110); CREATININE 0.63 mg/dl (0.44-1.00); GLUCOSE 212 mg/dl (70-220); POTASSIUM 3.8 mmol/L (3.5-5.1); SODIUM 144 mmol/L (135-144); TOTAL PROTEIN 6.4 g/dl (6.1-8.1)
[2017-06-03] MEDS: INSULIN ASPART [NOVOLOG] 3 ML PEN SC ×7 (08:20→20:46)
[2017-06-03] MEDS: VANCOMYCIN 750 MG in DEXTROSE 5% 150 ML IVPB ×2 (08:21→20:45)
[2017-06-03] MEDS: ASPIRIN (EC) 325 MG TAB PO (08:21)
[2017-06-03] MEDS: CEFEPIME 1GM/50 ML (PMX) 50 ML IVPB ×2 (08:21→20:26)
[2017-06-03 08:22] LABS: MAGNESIUM 1.9 mg/dl (1.7-2.5)
[2017-06-03] MEDS: BENAZEPRIL 10 MG TAB PO (08:23)
[2017-06-03] MEDS: FAMOTIDINE 20 MG TAB PO ×2 (08:23→20:45)
[2017-06-03] MEDS: METOPROLOL (XL) 25 MG TAB PO ×2 (08:24→20:46)
[2017-06-03] MEDS: ENOXAPARIN 30 MG/0.3 ML SYG SC (08:29)
[2017-06-03] MEDS: DIGOXIN 0.125 MG TAB PO (12:11)
[2017-06-03] MEDS: MAGNESIUM SULFATE 2 GM/50 ML 50 ML IVPB (13:49)
[2017-06-03] MEDS: POTASSIUM CHLORIDE 50 ML IVPB ×2 (14:47→16:36)
[2017-06-03] MEDS: ATORVASTATIN 40 MG TAB PO (20:25)
[2017-06-03] MEDS: AMIODARONE 200 MG TAB PO (20:26)
[2017-06-03 20:37] LABS: VANCOMYCIN,TROUGH 16.8 ug/ml (10.0-20.0)
[2017-06-03] MEDS: INSULIN GLARGINE [LANtus] 3 ML PEN SC (20:38)
[2017-06-03] MEDS: morphine 2 MG INJ IV (23:19)
[2017-06-04] MEDS: ACCU-CHEK XX ×2 (01:37→02:57)
[2017-06-04 07:59] LABS: ADD MAN DIFF? NO
[2017-06-04 08:04] LABS: WHITE BLOOD COUNT 9.1 10^3/ul (4.8-10.8)
[2017-06-04 08:04] LABS: BASOPHIL # 0.1 10^3/ul (0.0-0.1); BASOPHILS % 0.6 % (0.0-2.0); EOSINOPHILS # 0.1 10^3/ul (0.0-0.5); EOSINOPHILS % 1.2 % (0.0-7.0); HEMATOCRIT 37.2 % (37.0-47.0); HEMOGLOBIN 11.7 g/dl (12.0-16.0); LYMPHOCYTES # 1.8 10^3/ul (0.8-2.9); LYMPHOCYTES % 19.8 % (15.0-51.0); MEAN CORPUSCULAR HEMOGLOBIN 31.9 pg (29.0-33.0); MEAN CORPUSCULAR HGB CONC 31.5 g/dl (32.0-37.0); MEAN CORPUSCULAR VOLUME 101.4 fl (82.0-101.0); MONOCYTE # 0.7 10^3/ul (0.3-0.9); MONOCYTES % 7.8 % (0.0-11.0); NEUTROPHIL # 6.3 10^3/ul (1.6-7.5); NEUTROPHILS % 69.8 % (39.0-77.0); PLATELET COUNT 297 10^3/UL (140-415); RED BLOOD COUNT 3.67 10^6/ul (4.20-5.40); RED CELL DISTRIBUTION WIDTH 14.5 % (11.5-14.5)
[2017-06-04] MEDS: VANCOMYCIN 750 MG in DEXTROSE 5% 150 ML IVPB (08:14)
[2017-06-04] MEDS: ASPIRIN (EC) 325 MG TAB PO (08:15)
[2017-06-04] MEDS: METOPROLOL (XL) 25 MG TAB PO ×2 (08:15→20:21)
[2017-06-04] MEDS: FAMOTIDINE 20 MG TAB PO ×2 (08:15→20:20)
[2017-06-04] MEDS: AMIODARONE 200 MG TAB PO ×2 (08:16→20:21)
[2017-06-04] MEDS: BENAZEPRIL 10 MG TAB PO (08:16)
[2017-06-04] MEDS: INSULIN ASPART [NOVOLOG] 3 ML PEN SC ×7 (08:18→20:24)
[2017-06-04 08:26] LABS: ANION GAP 11 (8-16); BLOOD UREA NITROGEN 9 mg/dl (7-20); CALCIUM 8.9 mg/dl (8.4-10.2); CARBON DIOXIDE 37 mmol/L (21-31); CHLORIDE 98 mmol/L (97-110); CREATININE 0.56 mg/dl (0.44-1.00); GLUCOSE 184 mg/dl (70-220); POTASSIUM 4.3 mmol/L (3.5-5.1); SODIUM 142 mmol/L (135-144)
[2017-06-04] MEDS: ENOXAPARIN 30 MG/0.3 ML SYG SC (08:28)
[2017-06-04] MEDS: CEFEPIME 1GM/50 ML (PMX) 50 ML IVPB ×2 (08:29→20:24)
[2017-06-04] MEDS: DIGOXIN 0.125 MG TAB PO (12:24)
[2017-06-04] MEDS: LORAZEPAM 2 MG INJ IV (18:11)
[2017-06-04] MEDS: ATORVASTATIN 40 MG TAB PO (20:21)
[2017-06-04] MEDS: VANCOMYCIN 500MG/NS (PMX) 100 ML IVPB (20:22)
[2017-06-04] MEDS: INSULIN GLARGINE [LANtus] 3 ML PEN SC (20:23)
[2017-06-05] MEDS: ACCU-CHEK XX (02:44)
[2017-06-05] MEDS: morphine 2 MG INJ IV (02:47)
[2017-06-05] MEDS: INSULIN ASPART [NOVOLOG] 3 ML PEN SC ×7 (07:57→20:22)
[2017-06-05] MEDS: METOPROLOL (XL) 25 MG TAB PO (09:00)
[2017-06-05] MEDS: BENAZEPRIL 10 MG TAB PO (09:00)
[2017-06-05] MEDS: FAMOTIDINE 20 MG TAB PO ×2 (09:15→20:21)
[2017-06-05] MEDS: ASPIRIN (EC) 325 MG TAB PO (09:15)
[2017-06-05] MEDS: AMIODARONE 200 MG TAB PO ×2 (09:16→20:22)
[2017-06-05] MEDS: ENOXAPARIN 30 MG/0.3 ML SYG SC (09:17)
[2017-06-05] MEDS: LORAZEPAM 2 MG INJ IV (11:09)
[2017-06-05 14:53] LABS: ADD MAN DIFF? NO
[2017-06-05 15:01] LABS: WHITE BLOOD COUNT 10.3 10^3/ul (4.8-10.8)
[2017-06-05 15:01] LABS: BASOPHILS % 0.4 % (0.0-2.0); EOSINOPHILS # 0.1 10^3/ul (0.0-0.5); EOSINOPHILS % 1.3 % (0.0-7.0); HEMATOCRIT 35.6 % (37.0-47.0); HEMOGLOBIN 11.2 g/dl (12.0-16.0); LYMPHOCYTES # 1.8 10^3/ul (0.8-2.9); LYMPHOCYTES % 17.2 % (15.0-51.0); MEAN CORPUSCULAR HEMOGLOBIN 31.5 pg (29.0-33.0); MEAN CORPUSCULAR HGB CONC 31.5 g/dl (32.0-37.0); MEAN PLATELET VOLUME 9.9 fl (7.4-10.4); MONOCYTE # 0.8 10^3/ul (0.3-0.9); MONOCYTES % 7.3 % (0.0-11.0); NEUTROPHIL # 7.5 10^3/ul (1.6-7.5); PLATELET COUNT 311 10^3/UL (140-415); RED BLOOD COUNT 3.56 10^6/ul (4.20-5.40); RED CELL DISTRIBUTION WIDTH 14.8 % (11.5-14.5)
[2017-06-05] MEDS: DIGOXIN 0.125 MG TAB PO (15:12)
[2017-06-05 15:17] LABS: ANION GAP 10 (8-16); BLOOD UREA NITROGEN 19 mg/dl (7-20); CALCIUM 8.7 mg/dl (8.4-10.2); CARBON DIOXIDE 36 mmol/L (21-31); CHLORIDE 97 mmol/L (97-110); CREATININE 0.71 mg/dl (0.44-1.00); GLUCOSE 193 mg/dl (70-220); POTASSIUM 3.7 mmol/L (3.5-5.1); SODIUM 139 mmol/L (135-144)
[2017-06-05] MEDS: METOPROLOL (XL) 50 MG TAB PO (20:21)
[2017-06-05] MEDS: ATORVASTATIN 40 MG TAB PO (20:21)
[2017-06-05] MEDS: INSULIN GLARGINE [LANtus] 3 ML PEN SC (20:38)
[2017-06-06] MEDS: LORAZEPAM 2 MG INJ IV ×2 (01:38→20:53)
[2017-06-06] MEDS: ACCU-CHEK XX (02:00)
[2017-06-06 07:57] LABS: ADD MAN DIFF? NO
[2017-06-06 08:04] LABS: BASOPHIL # 0.1 10^3/ul (0.0-0.1); BASOPHILS % 0.5 % (0.0-2.0); EOSINOPHILS # 0.2 10^3/ul (0.0-0.5); EOSINOPHILS % 2.1 % (0.0-7.0); HEMATOCRIT 37.7 % (37.0-47.0); HEMOGLOBIN 11.7 g/dl (12.0-16.0); LYMPHOCYTES # 2.4 10^3/ul (0.8-2.9); LYMPHOCYTES % 26.3 % (15.0-51.0); MEAN CORPUSCULAR HEMOGLOBIN 31.8 pg (29.0-33.0); MEAN CORPUSCULAR VOLUME 102.4 fl (82.0-101.0); MONOCYTE # 0.9 10^3/ul (0.3-0.9); MONOCYTES % 9.3 % (0.0-11.0); NEUTROPHIL # 5.6 10^3/ul (1.6-7.5); PLATELET COUNT 318 10^3/UL (140-415); RED BLOOD COUNT 3.68 10^6/ul (4.20-5.40); RED CELL DISTRIBUTION WIDTH 14.6 % (11.5-14.5)
[2017-06-06 08:04] LABS: WHITE BLOOD COUNT 9.2 10^3/ul (4.8-10.8)
[2017-06-06] MEDS: FAMOTIDINE 20 MG TAB PO ×2 (08:11→20:18)
[2017-06-06] MEDS: ASPIRIN (EC) 325 MG TAB PO (08:11)
[2017-06-06] MEDS: BENAZEPRIL 10 MG TAB PO (08:11)
[2017-06-06] MEDS: AMIODARONE 200 MG TAB PO ×2 (08:12→20:19)
[2017-06-06] MEDS: METOPROLOL (XL) 50 MG TAB PO ×2 (08:12→20:18)
[2017-06-06] MEDS: INSULIN ASPART [NOVOLOG] 3 ML PEN SC ×7 (08:18→20:31)
[2017-06-06] MEDS: ENOXAPARIN 30 MG/0.3 ML SYG SC (08:19)
[2017-06-06 08:22] LABS: ANION GAP 10 (8-16); BLOOD UREA NITROGEN 15 mg/dl (7-20); CALCIUM 8.9 mg/dl (8.4-10.2); CARBON DIOXIDE 34 mmol/L (21-31); CHLORIDE 102 mmol/L (97-110); CREATININE 0.69 mg/dl (0.44-1.00); GLUCOSE 176 mg/dl (70-220); POTASSIUM 4.1 mmol/L (3.5-5.1); SODIUM 142 mmol/L (135-144)
[2017-06-06] MEDS: DIGOXIN 0.125 MG TAB PO (12:59)
[2017-06-06] MEDS: INSULIN GLARGINE [LANtus] 3 ML PEN SC (20:00)
[2017-06-06] MEDS: ATORVASTATIN 40 MG TAB PO (20:18)
[2017-06-06] MEDS: morphine 2 MG INJ IV (21:50)
[2017-06-07] MEDS: ACCU-CHEK XX (01:35)
[2017-06-07] MEDS: morphine 2 MG INJ IV ×2 (05:42→22:11)
[2017-06-07 07:11] LABS: ADD MAN DIFF? NO
[2017-06-07 07:17] LABS: WHITE BLOOD COUNT 9.4 10^3/ul (4.8-10.8)
[2017-06-07 07:17] LABS: BASOPHIL # 0.1 10^3/ul (0.0-0.1); BASOPHILS % 0.5 % (0.0-2.0); EOSINOPHILS # 0.3 10^3/ul (0.0-0.5); EOSINOPHILS % 2.9 % (0.0-7.0); HEMATOCRIT 34.7 % (37.0-47.0); HEMOGLOBIN 10.8 g/dl (12.0-16.0); LYMPHOCYTES # 2.2 10^3/ul (0.8-2.9); LYMPHOCYTES % 22.9 % (15.0-51.0); MEAN CORPUSCULAR HEMOGLOBIN 31.2 pg (29.0-33.0); MEAN CORPUSCULAR HGB CONC 31.1 g/dl (32.0-37.0); MEAN CORPUSCULAR VOLUME 100.3 fl (82.0-101.0); MEAN PLATELET VOLUME 10.2 fl (7.4-10.4); MONOCYTE # 0.8 10^3/ul (0.3-0.9); MONOCYTES % 8.7 % (0.0-11.0); NEUTROPHIL # 6.1 10^3/ul (1.6-7.5); NEUTROPHILS % 64.4 % (39.0-77.0); PLATELET COUNT 323 10^3/UL (140-415); RED BLOOD COUNT 3.46 10^6/ul (4.20-5.40); RED CELL DISTRIBUTION WIDTH 14.9 % (11.5-14.5)
[2017-06-07] MEDS: INSULIN ASPART [NOVOLOG] 3 ML PEN SC ×7 (08:07→21:09)
[2017-06-07] MEDS: AMIODARONE 200 MG TAB PO ×2 (08:51→21:06)
[2017-06-07] MEDS: BENAZEPRIL 10 MG TAB PO (08:52)
[2017-06-07] MEDS: FAMOTIDINE 20 MG TAB PO ×2 (08:52→21:06)
[2017-06-07] MEDS: ASPIRIN (EC) 325 MG TAB PO (08:52)
[2017-06-07] MEDS: METOPROLOL (XL) 50 MG TAB PO ×2 (08:52→21:06)
[2017-06-07] MEDS: ENOXAPARIN 30 MG/0.3 ML SYG SC (08:53)
[2017-06-07] MEDS: DIGOXIN 0.125 MG TAB PO (14:07)
[2017-06-07] MEDS: ATORVASTATIN 40 MG TAB PO (21:06)
[2017-06-07] MEDS: INSULIN GLARGINE [LANtus] 3 ML PEN SC (21:08)
[2017-06-07] MEDS: LORAZEPAM 2 MG INJ IV (21:30)
[2017-06-08] MEDS: LORAZEPAM 2 MG INJ IV ×2 (00:49→21:01)
[2017-06-08] MEDS: ACCU-CHEK XX (02:00)
[2017-06-08 06:52] LABS: ADD MAN DIFF? NO
[2017-06-08 06:58] LABS: BASOPHIL # 0.1 10^3/ul (0.0-0.1); BASOPHILS % 0.5 % (0.0-2.0); EOSINOPHILS # 0.3 10^3/ul (0.0-0.5); EOSINOPHILS % 2.4 % (0.0-7.0); HEMATOCRIT 36.5 % (37.0-47.0); HEMOGLOBIN 11.3 g/dl (12.0-16.0); LYMPHOCYTES # 2.3 10^3/ul (0.8-2.9); LYMPHOCYTES % 21.4 % (15.0-51.0); MEAN CORPUSCULAR HEMOGLOBIN 31.6 pg (29.0-33.0); MEAN PLATELET VOLUME 10.2 fl (7.4-10.4); MONOCYTE # 0.9 10^3/ul (0.3-0.9); MONOCYTES % 8.1 % (0.0-11.0); NEUTROPHIL # 7.2 10^3/ul (1.6-7.5); PLATELET COUNT 344 10^3/UL (140-415); RED BLOOD COUNT 3.58 10^6/ul (4.20-5.40)
[2017-06-08 06:58] LABS: WHITE BLOOD COUNT 10.8 10^3/ul (4.8-10.8)
[2017-06-08 07:58] LABS: ANION GAP 12 (8-16); BLOOD UREA NITROGEN 19 mg/dl (7-20); CARBON DIOXIDE 35 mmol/L (21-31); CHLORIDE 98 mmol/L (97-110); CREATININE 0.89 mg/dl (0.44-1.00); GLUCOSE 202 mg/dl (70-220); POTASSIUM 3.9 mmol/L (3.5-5.1); SODIUM 141 mmol/L (135-144)
[2017-06-08] MEDS: FAMOTIDINE 20 MG TAB PO ×2 (08:11→21:00)
[2017-06-08] MEDS: METOPROLOL (XL) 50 MG TAB PO ×2 (08:11→20:59)
[2017-06-08] MEDS: ASPIRIN (EC) 325 MG TAB PO (08:11)
[2017-06-08] MEDS: AMIODARONE 200 MG TAB PO ×2 (08:12→21:00)
[2017-06-08] MEDS: BENAZEPRIL 10 MG TAB PO (08:12)
[2017-06-08] MEDS: INSULIN ASPART [NOVOLOG] 3 ML PEN SC ×7 (08:15→21:00)
[2017-06-08] MEDS: ENOXAPARIN 30 MG/0.3 ML SYG SC (08:16)
[2017-06-08] MEDS: DIGOXIN 0.125 MG TAB PO (12:06)
[2017-06-08] MEDS: ATORVASTATIN 40 MG TAB PO (21:01)
[2017-06-08] MEDS: INSULIN GLARGINE [LANtus] 3 ML PEN SC (21:09)
[2017-06-09] MEDS: ACCU-CHEK XX (02:00)
[2017-06-09] MEDS: INSULIN ASPART [NOVOLOG] 3 ML PEN SC ×7 (08:01→20:53)
[2017-06-09] MEDS: METOPROLOL (XL) 50 MG TAB PO ×2 (08:24→20:49)
[2017-06-09] MEDS: BENAZEPRIL 10 MG TAB PO (08:24)
[2017-06-09] MEDS: AMIODARONE 200 MG TAB PO ×2 (08:24→20:48)
[2017-06-09] MEDS: ASPIRIN (EC) 325 MG TAB PO (08:24)
[2017-06-09] MEDS: FAMOTIDINE 20 MG TAB PO ×2 (08:25→20:48)
[2017-06-09] MEDS: ENOXAPARIN 30 MG/0.3 ML SYG SC (08:25)
[2017-06-09] MEDS: DIGOXIN 0.125 MG TAB PO (12:02)
[2017-06-09] MEDS: ATORVASTATIN 40 MG TAB PO (20:48)
[2017-06-09] MEDS: LORAZEPAM 2 MG INJ IV (20:49)
[2017-06-09] MEDS: INSULIN GLARGINE [LANtus] 3 ML PEN SC (20:53)
[2017-06-10] MEDS: ACCU-CHEK XX (02:00)
[2017-06-10 06:54] LABS: ADD MAN DIFF? NO
[2017-06-10 07:00] LABS: BASOPHILS % 0.4 % (0.0-2.0); EOSINOPHILS # 0.3 10^3/ul (0.0-0.5); EOSINOPHILS % 3.7 % (0.0-7.0); HEMATOCRIT 36.4 % (37.0-47.0); HEMOGLOBIN 11.3 g/dl (12.0-16.0); LYMPHOCYTES # 1.6 10^3/ul (0.8-2.9); LYMPHOCYTES % 20.8 % (15.0-51.0); MEAN CORPUSCULAR HEMOGLOBIN 31.3 pg (29.0-33.0); MEAN CORPUSCULAR VOLUME 100.8 fl (82.0-101.0); MEAN PLATELET VOLUME 10.1 fl (7.4-10.4); MONOCYTE # 0.9 10^3/ul (0.3-0.9); MONOCYTES % 10.8 % (0.0-11.0); NEUTROPHIL # 5.1 10^3/ul (1.6-7.5); NEUTROPHILS % 63.9 % (39.0-77.0); PLATELET COUNT 309 10^3/UL (140-415); RED BLOOD COUNT 3.61 10^6/ul (4.20-5.40); RED CELL DISTRIBUTION WIDTH 15.1 % (11.5-14.5)
[2017-06-10 07:00] LABS: WHITE BLOOD COUNT 7.9 10^3/ul (4.8-10.8)
[2017-06-10 07:29] LABS: BLOOD UREA NITROGEN 14 mg/dl (7-20); CALCIUM 9.1 mg/dl (8.4-10.2); CHLORIDE 102 mmol/L (97-110); CREATININE 0.67 mg/dl (0.44-1.00); GLUCOSE 107 mg/dl (70-220); POTASSIUM 4.1 mmol/L (3.5-5.1); SODIUM 147 mmol/L (135-144)
[2017-06-10 07:36] LABS: ANION GAP 9 (8-16)
[2017-06-10 07:39] LABS: CARBON DIOXIDE 40 mmol/L (21-31)
[2017-06-10] MEDS: INSULIN ASPART [NOVOLOG] 3 ML PEN SC ×4 (08:00→12:24)
[2017-06-10] MEDS: ASPIRIN (EC) 325 MG TAB PO (08:44)
[2017-06-10] MEDS: BENAZEPRIL 10 MG TAB PO (08:45)
[2017-06-10] MEDS: FAMOTIDINE 20 MG TAB PO (08:46)
[2017-06-10] MEDS: AMIODARONE 200 MG TAB PO (08:46)
[2017-06-10] MEDS: METOPROLOL (XL) 50 MG TAB PO (08:47)
[2017-06-10] MEDS: ENOXAPARIN 30 MG/0.3 ML SYG SC (08:49)
[2017-06-10] MEDS: DIGOXIN 0.125 MG TAB PO (12:29)
== END 2017-06-10 14:30 | DRG 871 ==
LOC: E/R 13:54 → MS4 16:12
DX: A41.9 Sepsis, unspecified organism (principal); J18.9 Pneumonia, unspecified organism; J96.21 Acute and chronic respiratory failure with hypoxia; G93.41 Metabolic encephalopathy; S00.03XA Contusion of scalp, initial encounter; I48.0 Paroxysmal atrial fibrillation; I10 Essential (primary) hypertension; E78.5 Hyperlipidemia, unspecified; F03.90 Unspecified dementia, unspecified severity, without behavioral disturbance, psychotic disturbance, mood disturbance, and anxiety; D64.9 Anemia, unspecified; E11.9 Type 2 diabetes mellitus without complications; R10.11 Right upper quadrant pain; R65.20 Severe sepsis without septic shock; X58.XXXD Exposure to other specified factors, subsequent encounter; Y95 Nosocomial condition; W18.30XA Fall on same level, unspecified, initial encounter; S72.141D Displaced intertrochanteric fracture of right femur, subsequent encounter for closed fracture with routine healing
CPT/HCPCS: 36415; 70450; 71045; 73510; 73550; 74176; 76705; 80048; 80053; 80061; 80076; 80202; 82962; 83036; 83605; 83690; 83735; 84443; 84484; 85025; 87040; 87081; 93005; 94664; 96374; 96375; 97110; 97116; 97162; 97530; 99291-25

== ENCOUNTER 2017-09-10 05:09 | Inpatient (IN) | payer MEDICARE, OTHER ==
[2017-09-10] MEDS ORDERED: ONDANSETRON 4 MG INJ IV (06:00)
[2017-09-10] MEDS ORDERED: morphine 2 MG INJ IV (06:00)
[2017-09-10] MEDS ORDERED: ACETAMINOPHEN 650 MG SUPP PR (06:00)
[2017-09-10] MEDS: SODIUM CHLORIDE 0.9% 1L BAG IV* (06:22)
[2017-09-10 06:25] LABS: ABNORMAL IP MESSAGE 1; HEMATOCRIT 50.6 % (37.0-47.0); HEMOGLOBIN 14.9 g/dl (12.0-16.0); MEAN CORPUSCULAR HEMOGLOBIN 28.9 pg (29.0-33.0); MEAN CORPUSCULAR HGB CONC 29.4 g/dl (32.0-37.0); MEAN CORPUSCULAR VOLUME 98.1 fl (82.0-101.0); NUCLEATED RED BLOOD CELLS% 0.3 /100WBC (0.0-0.0); PLATELET COUNT 183 10^3/UL (140-415); RED BLOOD COUNT 5.16 10^6/ul (4.20-5.40); RED CELL DISTRIBUTION WIDTH 17.2 % (11.5-14.5)
[2017-09-10 06:25] LABS: WHITE BLOOD COUNT 15.1 10^3/ul (4.8-10.8)
[2017-09-10 06:28] LABS: AADO2 Arterial 576.7 mmHg (7.0-24.0); Arterial Blood Gas Oxygen Sat 97.5 mmHG (95.0-100.0); Arterial COHb 1.1 % (0.0-3.0); Arterial Fraction of Oxyhgb 96.1 % (93.0-99.0); Arterial HCO3 21.7 mmol/L (22.0-26.0); Arterial MetHb 0.3 % (0.0-1.5); Arterial Total Hemglobin 15.5 g/dl (12.0-18.0); MODE VENT - AC; Site Right Brachial
[2017-09-10] MEDS: DOPamine-D5W 1.6 MG/ML 250 ML IV (06:30)
[2017-09-10] MEDS: ATROPINE 1 MG INJ IV (06:39)
[2017-09-10 06:40] LABS: POSITIVE DIFF @See below
[2017-09-10 06:41] LABS: ADD MAN DIFF? YES
[2017-09-10 06:46] LABS: INR 1.09; PROTIME 14.3 Sec (11.9-14.9); PT RATIO 1.1
[2017-09-10 06:47] LABS: PARTIAL THROMBOPLASTIN TIME 25.6 Sec (25.0-35.0)
[2017-09-10 06:50] LABS: ANION GAP 14 (8-16); BLOOD UREA NITROGEN 53 mg/dl (7-20); CALCIUM 8.4 mg/dl (8.4-10.2); CARBON DIOXIDE 25 mmol/L (21-31); CHLORIDE 103 mmol/L (97-110); CREATININE 1.22 mg/dl (0.44-1.00); GLUCOSE 228 mg/dl (70-220); POTASSIUM 4.5 mmol/L (3.5-5.1); SODIUM 137 mmol/L (135-144)
[2017-09-10 06:51] LABS: ALANINE AMINOTRANSFERASE 21 IU/L (13-69); ALBUMIN 3.5 g/dl (3.3-4.9); ALBUMIN/GLOBULIN RATIO 1.25; ALKALINE PHOSPHATASE 123 IU/L (42-121); ANION GAP 13 (8-16); ASPARTATE AMINO TRANSFERASE 23 IU/L (15-46); BILIRUBIN,INDIRECT 0.7 mg/dl (0-1.1); BILIRUBIN,TOTAL 0.7 mg/dl (0.2-1.3); BLOOD UREA NITROGEN 54 mg/dl (7-20); CALCIUM 8.3 mg/dl (8.4-10.2); CARBON DIOXIDE 25 mmol/L (21-31); CHLORIDE 103 mmol/L (97-110); GLUCOSE 235 mg/dl (70-220); POTASSIUM 4.4 mmol/L (3.5-5.1); SODIUM 137 mmol/L (135-144); TOTAL PROTEIN 6.3 g/dl (6.1-8.1)
[2017-09-10] MEDS: PROPOFOL 100 ML IV (06:58)
[2017-09-10] MEDS: SUCCINYLCHOLINE CHLORIDE 100 MG/5 ML SYG IV (06:58)
[2017-09-10 07:00] LABS: TROPONIN-I 0.042 ng/ml (0.000-0.120)
[2017-09-10] MEDS ORDERED: DOPamine-D5W 1.6 MG/ML 250 ML (07:00)
[2017-09-10] MEDS ORDERED: SUCCINYLCHOLINE CHLORIDE 100 MG/5 ML SYG IV (07:00)
[2017-09-10] MEDS ORDERED: EPINEPHrine 0.1 MG/ML SYG (07:00)
[2017-09-10] MEDS ORDERED: ATROPINE 1 MG/10 ML SYRINGE (07:00)
[2017-09-10 07:28] LABS: HEMOGLOBIN A1C 8.7 % (0-5.9)
[2017-09-10] MEDS: CEFEPIME 2GM/50 ML (PMX) 50 ML IVPB (07:28)
[2017-09-10] MEDS: MIDAZOLAM 1 MG/ML 2 ML INJ IV (07:28)
[2017-09-10 07:47] LABS: ADD UMIC YES; UR ASCORBIC ACID NEGATIVE (NEGATIVE); UR BACTERIA MODERATE /HPF (NONE SEEN); UR BILIRUBIN (Dip) NEGATIVE (NEGATIVE); UR BLOOD (Dip) 2+ mg/dL (NEGATIVE); UR CLARITY TURBID (CLEAR); UR COLOR AMBER (YELLOW); UR GLUCOSE (Dip) NEGATIVE (NEGATIVE); UR HYALINE CAST FEW /HPF (NONE SEEN); UR KETONES (Dip) NEGATIVE (NEGATIVE); UR LEUKOCYTE ESTERASE (Dip) 2+ Leu/ul (NEGATIVE); UR MUCUS MANY /HPF (NONE SEEN); UR NITRITE (Dip) NEGATIVE (NEGATIVE); UR RBC 7 /HPF (0-5); UR SPECIFIC GRAVITY (Dip) 1.014 (1.003-1.030); UR SQUAMOUS EPITHELIAL CELL FEW /HPF (FEW); UR TOTAL PROTEIN (Dip) 2+ mg/dl (NEGATIVE); UR UROBILINOGEN (Dip) 2+ mg/dL (NEGATIVE); UR WBC 110 /HPF (0-5)
[2017-09-10] MEDS: VANCOMYCIN 1 GM (PMX) 250 ML IVPB (08:15)
[2017-09-10] MEDS: MIDAZOLAM (DRIP) 50 mg/50 mL 50 ML IV ×2 (08:15→18:08)
[2017-09-10] MEDS: ENOXAPARIN 30 MG/0.3 ML SYG SC ×3 (08:20→08:35)
[2017-09-10] MEDS: FAMOTIDINE 20 MG INJ IV (08:20)
[2017-09-10 08:21] LABS: AMMONIA < 9 umol/l (9-30)
[2017-09-10 08:23] LABS: LACTIC ACID 2.1 mmol/L (0.5-2.0)
[2017-09-10 09:36] LABS: ANISOCYTOSIS 1+ (0-0); BAND NEUTROPHILS #M 4.3 10^3/ul (0.0-0.6); BAND NEUTROPHILS % (M) 29 % (0-4); LYMPHOCYTES #M 0.1 10^3/ul (0.8-2.9); LYMPHOCYTES % (M) 1 % (15-51); MONOCYTE #M 0.1 10^3/ul (0.3-0.9); MONOCYTES % (M) 1 % (0-11); PLATELET ESTIMATE NORMAL; POIKILOCYTOSIS 2+ (0-0); POLYCHROMASIA 2+ (0-0); SEG NEUT #M 11.1 10^3/ul (1.6-7.5); SEGMENTED NEUTROPHILS (M) % 69 % (39-77); SMUDGE%M 1 % (0-0)
[2017-09-10 10:47] LABS: LACTIC ACID 2.5 mmol/L (0.5-2.0)
[2017-09-10 14:09] LABS: LACTIC ACID 4.9 mmol/L (0.5-2.0)
[2017-09-11] MEDS: DOPamine-D5W 1.6 MG/ML 250 ML IV (03:11)
[2017-09-11] MEDS: ENOXAPARIN 30 MG/0.3 ML SYG SC (08:30)
[2017-09-11] MEDS: FAMOTIDINE 20 MG INJ IV (08:30)
[2017-09-11] MEDS: MIDAZOLAM (DRIP) 50 mg/50 mL 50 ML IV ×2 (15:26→21:06)
[2017-09-11] MEDS ORDERED: NORepinephrine 8MG/250 ML (PMX 250 ML (16:14)
[2017-09-11 18:06] LABS: AADO2 Arterial 616.7 mmHg (7.0-24.0); Arterial Base Excess -2.1 mmol/L (-3.0-3); Arterial Blood Gas Oxygen Sat 87.8 mmHG (95.0-100.0); Arterial COHb 0.3 % (0.0-3.0); Arterial Fraction of Oxyhgb 87.2 % (93.0-99.0); Arterial HCO3 23.1 mmol/L (22.0-26.0); Arterial MetHb 0.4 % (0.0-1.5); Arterial pCO2 41.4 mmhg (35-45); Blood Gas Low PEEP Setting 0 cmH2O; MODE VENT - AC; Site A-Line
[2017-09-11] MEDS ORDERED: VANCOMYCIN IV PER PHARMACY XX (18:30)
[2017-09-11] MEDS: VASOPRESSIN 60 UNIT in DEXTROSE 5% 57 ML IV (19:00)
[2017-09-11] MEDS: VANCOMYCIN 1 GM 250 ML IVPB (20:05)
[2017-09-11] MEDS: CEFEPIME 1GM/50 ML (PMX) 50 ML IVPB (21:07)
[2017-09-12 05:28] LABS: WHITE BLOOD COUNT 23.2 10^3/ul (4.8-10.8)
[2017-09-12 05:28] LABS: ABNORMAL IP MESSAGE 1; HEMATOCRIT 42.5 % (37.0-47.0); HEMOGLOBIN 13.5 g/dl (12.0-16.0); MEAN CORPUSCULAR HEMOGLOBIN 28.9 pg (29.0-33.0); MEAN CORPUSCULAR HGB CONC 31.8 g/dl (32.0-37.0); PLATELET COUNT 190 10^3/UL (140-415); RED BLOOD COUNT 4.67 10^6/ul (4.20-5.40); RED CELL DISTRIBUTION WIDTH 17.4 % (11.5-14.5)
[2017-09-12 05:32] LABS: ADD MAN DIFF? YES; POSITIVE DIFF @See below
[2017-09-12 05:55] LABS: ANION GAP 13 (8-16); BLOOD UREA NITROGEN 61 mg/dl (7-20); CALCIUM 7.5 mg/dl (8.4-10.2); CARBON DIOXIDE 22 mmol/L (21-31); CHLORIDE 104 mmol/L (97-110); CREATININE 1.48 mg/dl (0.44-1.00); GLUCOSE 338 mg/dl (70-220); POTASSIUM 4.6 mmol/L (3.5-5.1); SODIUM 134 mmol/L (135-144)
[2017-09-12] MEDS ORDERED: GLUCAGON 1 MG INJ IM (06:00)
[2017-09-12] MEDS ORDERED: GLUCOSE GEL 15 GRAM TUBE PO ×2 (06:00)
[2017-09-12] MEDS ORDERED: GLUCOSE GEL 15 GRAM TUBE BUCCAL (06:00)
[2017-09-12] MEDS ORDERED: DEXTROSE 50% 50 ML SYRINGE IV (06:00)
[2017-09-12] MEDS: VASOPRESSIN 60 UNIT in DEXTROSE 5% 57 ML IV ×2 (06:10→18:03)
[2017-09-12] MEDS: INSULIN ASPART [NOVOLOG] 3 ML PEN SC ×3 (06:28→18:02)
[2017-09-12] MEDS: MIDAZOLAM (DRIP) 50 mg/50 mL 50 ML IV ×2 (06:39→15:32)
[2017-09-12 07:12] LABS: ANISOCYTOSIS 2+ (0-0); BAND NEUTROPHILS #M 7.8 10^3/ul (0.0-0.6); BAND NEUTROPHILS % (M) 34 % (0-4); BURR CELLS 3+ (0-0); GIANT THROMBO% (M) 1 % (0-0); LYMPHOCYTES #M 0.4 10^3/ul (0.8-2.9); LYMPHOCYTES % (M) 2 % (15-51); METAMYELOCYTES #M 0.2 10^3/ul (0.0-0.0); METAMYELOCYTES %M 1 % (0-0); MONOCYTE #M 0.2 10^3/ul (0.3-0.9); MONOCYTES % (M) 1 % (0-11); MYELOCYTES #M 0.2 10^3/ul (0.0-0.0); MYELOCYTES % (M) 1 % (0-0); PLATELET ESTIMATE NORMAL; POIKILOCYTOSIS 3+ (0-0); POLYCHROMASIA 1+ (0-0); SEGMENTED NEUTROPHILS (M) % 61 % (39-77); SMUDGE%M 8 % (0-0)
[2017-09-12] MEDS: CEFEPIME 1GM/50 ML (PMX) 50 ML IVPB (08:50)
[2017-09-12] MEDS: FAMOTIDINE 20 MG INJ IV (08:50)
[2017-09-12] MEDS: ENOXAPARIN 30 MG/0.3 ML SYG SC (08:51)
[2017-09-12 09:08] LABS: AADO2 Arterial 447.5 mmHg (7.0-24.0); Allen Test ACCEPTAB; Arterial Base Excess -4.1 mmol/L (-3.0-3); Arterial Blood Gas Oxygen Sat 96.4 mmHG (95.0-100.0); Arterial COHb 0.5 % (0.0-3.0); Arterial Fraction of Oxyhgb 95.5 % (93.0-99.0); Arterial HCO3 20.9 mmol/L (22.0-26.0); Arterial MetHb 0.4 % (0.0-1.5); Arterial Total Hemglobin 14.3 g/dl (12.0-18.0); Arterial pCO2 38.1 mmhg (35-45); MODE VENT - AC; Site Right Radial
[2017-09-12] MEDS: SOD CHLORIDE 0.9% 1,000 ML IV (10:14)
[2017-09-12] MEDS: NACL 3% FOR INHALATION 15 ML NEBU NEB (17:37)
[2017-09-12] MEDS: VANCOMYCIN 500MG/NS (PMX) 100 ML IVPB (19:31)
[2017-09-13] MEDS: INSULIN ASPART [NOVOLOG] 3 ML PEN SC ×4 (00:03→18:27)
[2017-09-13] MEDS ORDERED: ACCU-CHEK XX (02:00)
[2017-09-13] MEDS: MIDAZOLAM (DRIP) 50 mg/50 mL 50 ML IV ×2 (02:04→18:09)
[2017-09-13 05:15] LABS: ADD MAN DIFF? NO
[2017-09-13 05:21] LABS: BASOPHILS % 0.1 % (0.0-2.0); EOSINOPHILS # 0.1 10^3/ul (0.0-0.5); EOSINOPHILS % 0.3 % (0.0-7.0); HEMATOCRIT 38.7 % (37.0-47.0); HEMOGLOBIN 12.3 g/dl (12.0-16.0); LYMPHOCYTES # 0.8 10^3/ul (0.8-2.9); MEAN CORPUSCULAR HEMOGLOBIN 28.9 pg (29.0-33.0); MEAN CORPUSCULAR HGB CONC 31.8 g/dl (32.0-37.0); MEAN CORPUSCULAR VOLUME 91.1 fl (82.0-101.0); MEAN PLATELET VOLUME 10.7 fl (7.4-10.4); MONOCYTE # 0.6 10^3/ul (0.3-0.9); MONOCYTES % 2.8 % (0.0-11.0); NEUTROPHIL # 18.9 10^3/ul (1.6-7.5); NEUTROPHILS % 92.3 % (39.0-77.0); PLATELET COUNT 148 10^3/UL (140-415); RED BLOOD COUNT 4.25 10^6/ul (4.20-5.40); RED CELL DISTRIBUTION WIDTH 17.3 % (11.5-14.5)
[2017-09-13 05:21] LABS: WHITE BLOOD COUNT 20.5 10^3/ul (4.8-10.8)
[2017-09-13] MEDS: VASOPRESSIN 60 UNIT in DEXTROSE 5% 57 ML IV ×2 (05:41→18:30)
[2017-09-13 05:47] LABS: ANION GAP 10 (8-16); BLOOD UREA NITROGEN 49 mg/dl (7-20); CALCIUM 7.6 mg/dl (8.4-10.2); CARBON DIOXIDE 23 mmol/L (21-31); CHLORIDE 108 mmol/L (97-110); CREATININE 1.02 mg/dl (0.44-1.00); GLUCOSE 165 mg/dl (70-220); POTASSIUM 3.5 mmol/L (3.5-5.1); SODIUM 137 mmol/L (135-144)
[2017-09-13] MEDS: ENOXAPARIN 30 MG/0.3 ML SYG SC (08:17)
[2017-09-13] MEDS: FAMOTIDINE 20 MG INJ IV (08:18)
[2017-09-13] MEDS: CEFEPIME 1GM/50 ML (PMX) 50 ML IVPB (08:18)
[2017-09-13 09:11] LABS: AADO2 Arterial 280.8 mmHg (7.0-24.0); Allen Test ACCEPTAB; Arterial Base Excess -0.9 mmol/L (-3.0-3); Arterial Blood Gas Oxygen Sat 98.5 mmHG (95.0-100.0); Arterial COHb 0.4 % (0.0-3.0); Arterial Fraction of Oxyhgb 97.9 % (93.0-99.0); Arterial HCO3 21.7 mmol/L (22.0-26.0); Arterial MetHb 0.2 % (0.0-1.5); Arterial Total Hemglobin 13.7 g/dl (12.0-18.0); Arterial pCO2 30.1 mmhg (35-45); MODE VENT - AC; Site Right Radial
[2017-09-13] MEDS: SOD CHLORIDE 0.45% 1,000 ML IV (19:09)
[2017-09-13] MEDS: VANCOMYCIN 500MG/NS (PMX) 100 ML IVPB (20:22)
[2017-09-14] MEDS: MIDAZOLAM (DRIP) 50 mg/50 mL 50 ML IV (00:42)
[2017-09-14] MEDS: INSULIN ASPART [NOVOLOG] 3 ML PEN SC ×4 (00:49→17:26)
[2017-09-14 05:02] LABS: ADD MAN DIFF? NO
[2017-09-14 05:05] LABS: WHITE BLOOD COUNT 10.7 10^3/ul (4.8-10.8)
[2017-09-14 05:05] LABS: BASOPHILS % 0.2 % (0.0-2.0); EOSINOPHILS # 0.1 10^3/ul (0.0-0.5); EOSINOPHILS % 1.2 % (0.0-7.0); HEMATOCRIT 38.9 % (37.0-47.0); HEMOGLOBIN 12.1 g/dl (12.0-16.0); LYMPHOCYTES # 0.8 10^3/ul (0.8-2.9); LYMPHOCYTES % 7.9 % (15.0-51.0); MEAN CORPUSCULAR HEMOGLOBIN 28.1 pg (29.0-33.0); MEAN CORPUSCULAR HGB CONC 31.1 g/dl (32.0-37.0); MEAN CORPUSCULAR VOLUME 90.5 fl (82.0-101.0); MEAN PLATELET VOLUME 10.9 fl (7.4-10.4); MONOCYTE # 0.5 10^3/ul (0.3-0.9); MONOCYTES % 4.6 % (0.0-11.0); NEUTROPHIL # 9.2 10^3/ul (1.6-7.5); NEUTROPHILS % 85.5 % (39.0-77.0); PLATELET COUNT 148 10^3/UL (140-415); RED CELL DISTRIBUTION WIDTH 17.3 % (11.5-14.5)
[2017-09-14 05:25] LABS: ANION GAP 8 (8-16); BLOOD UREA NITROGEN 34 mg/dl (7-20); CALCIUM 7.8 mg/dl (8.4-10.2); CARBON DIOXIDE 23 mmol/L (21-31); CHLORIDE 109 mmol/L (97-110); CREATININE 0.69 mg/dl (0.44-1.00); GLUCOSE 181 mg/dl (70-220); POTASSIUM 3.4 mmol/L (3.5-5.1); SODIUM 137 mmol/L (135-144)
[2017-09-14] MEDS: VASOPRESSIN 60 UNIT in DEXTROSE 5% 57 ML IV ×2 (06:29→18:30)
[2017-09-14] MEDS: FAMOTIDINE 20 MG INJ IV (08:40)
[2017-09-14] MEDS: CEFEPIME 1GM/50 ML (PMX) 50 ML IVPB (08:40)
[2017-09-14] MEDS: ENOXAPARIN 30 MG/0.3 ML SYG SC (08:41)
[2017-09-14] MEDS: SOD CHLORIDE 0.45% 1,000 ML IV (19:06)
[2017-09-14 19:41] LABS: VANCOMYCIN,TROUGH 10.2 ug/ml (10.0-20.0)
[2017-09-14] MEDS: VANCOMYCIN 500MG/NS (PMX) 100 ML IVPB (20:16)
[2017-09-15] MEDS: INSULIN ASPART [NOVOLOG] 3 ML PEN SC ×4 (00:02→18:00)
[2017-09-15 05:22] LABS: ADD MAN DIFF? NO
[2017-09-15 05:26] LABS: BASOPHILS % 0.3 % (0.0-2.0); EOSINOPHILS # 0.1 10^3/ul (0.0-0.5); EOSINOPHILS % 1.8 % (0.0-7.0); HEMATOCRIT 37.2 % (37.0-47.0); HEMOGLOBIN 11.5 g/dl (12.0-16.0); LYMPHOCYTES # 0.8 10^3/ul (0.8-2.9); LYMPHOCYTES % 11.5 % (15.0-51.0); MEAN CORPUSCULAR HEMOGLOBIN 28.1 pg (29.0-33.0); MEAN CORPUSCULAR HGB CONC 30.9 g/dl (32.0-37.0); MEAN PLATELET VOLUME 10.9 fl (7.4-10.4); MONOCYTE # 0.6 10^3/ul (0.3-0.9); MONOCYTES % 9.1 % (0.0-11.0); NEUTROPHIL # 5.4 10^3/ul (1.6-7.5); NEUTROPHILS % 76.3 % (39.0-77.0); PLATELET COUNT 128 10^3/UL (140-415); RED BLOOD COUNT 4.09 10^6/ul (4.20-5.40); RED CELL DISTRIBUTION WIDTH 17.5 % (11.5-14.5)
[2017-09-15 05:26] LABS: WHITE BLOOD COUNT 7.1 10^3/ul (4.8-10.8)
[2017-09-15 05:51] LABS: ANION GAP 8 (8-16); BLOOD UREA NITROGEN 23 mg/dl (7-20); CALCIUM 7.6 mg/dl (8.4-10.2); CARBON DIOXIDE 25 mmol/L (21-31); CHLORIDE 109 mmol/L (97-110); CREATININE 0.62 mg/dl (0.44-1.00); GLUCOSE 141 mg/dl (70-220); SODIUM 139 mmol/L (135-144)
[2017-09-15] MEDS: LIDOCAINE 1% (MPF) 5 ML VIAL SC (06:02)
[2017-09-15] MEDS: VASOPRESSIN 60 UNIT in DEXTROSE 5% 57 ML IV ×2 (06:07→19:55)
[2017-09-15] MEDS: CEFEPIME 1GM/50 ML (PMX) 50 ML IVPB (08:49)
[2017-09-15] MEDS: FAMOTIDINE 20 MG INJ IV (08:49)
[2017-09-15] MEDS: ENOXAPARIN 30 MG/0.3 ML SYG SC (08:53)
[2017-09-15] MEDS: POTASSIUM CHLORIDE 50 ML IVPB ×2 (10:56→13:21)
[2017-09-15] MEDS ORDERED: POTASSIUM CHLORIDE 100 ML IVPB (11:00)
[2017-09-15] MEDS: SOD CHLORIDE 0.45% 1,000 ML IV (19:00)
[2017-09-15] MEDS: VANCOMYCIN 750 MG in SOD CHLORIDE 0.9% 150 ML IVPB (19:49)
[2017-09-16] MEDS: INSULIN ASPART [NOVOLOG] 3 ML PEN SC ×4 (00:03→17:30)
[2017-09-16] MEDS: SOD CHLORIDE 0.45% 1,000 ML IV (03:59)
[2017-09-16 06:00] LABS: ADD MAN DIFF? NO
[2017-09-16 06:05] LABS: BASOPHILS % 0.3 % (0.0-2.0); LYMPHOCYTES # 0.9 10^3/ul (0.8-2.9)
[2017-09-16 06:20] LABS: WHITE BLOOD COUNT 6.7 10^3/ul (4.8-10.8)
[2017-09-16 06:20] LABS: EOSINOPHILS # 0.2 10^3/ul (0.0-0.5); EOSINOPHILS % 2.8 % (0.0-7.0); HEMATOCRIT 36.1 % (37.0-47.0); HEMOGLOBIN 11.2 g/dl (12.0-16.0); LYMPHOCYTES % 13.7 % (15.0-51.0); MEAN CORPUSCULAR HEMOGLOBIN 28.2 pg (29.0-33.0); MEAN CORPUSCULAR VOLUME 90.9 fl (82.0-101.0); MEAN PLATELET VOLUME 10.9 fl (7.4-10.4); MONOCYTE # 0.5 10^3/ul (0.3-0.9); MONOCYTES % 7.3 % (0.0-11.0); NEUTROPHILS % 75.3 % (39.0-77.0); PLATELET COUNT 155 10^3/UL (140-415); RED BLOOD COUNT 3.97 10^6/ul (4.20-5.40); RED CELL DISTRIBUTION WIDTH 17.4 % (11.5-14.5)
[2017-09-16] MEDS: VASOPRESSIN 60 UNIT in DEXTROSE 5% 57 ML IV ×2 (06:30→17:30)
[2017-09-16 06:37] LABS: AADO2 Arterial 173.2 mmHg (7.0-24.0); Allen Test ACCEPTAB; Arterial Base Excess 0 mmol/L (-3.0-3); Arterial Blood Gas Oxygen Sat 95.4 mmHG (95.0-100.0); Arterial COHb 0.1 % (0.0-3.0); Arterial Fraction of Oxyhgb 95.1 % (93.0-99.0); Arterial HCO3 23.6 mmol/L (22.0-26.0); Arterial MetHb 0.2 % (0.0-1.5); Arterial Total Hemglobin 12.4 g/dl (12.0-18.0); Arterial pCO2 35.1 mmhg (35-45); MODE VENT - AC; Site Right Radial
[2017-09-16 06:50] LABS: ANION GAP 7 (8-16); BLOOD UREA NITROGEN 20 mg/dl (7-20); CALCIUM 7.7 mg/dl (8.4-10.2); CARBON DIOXIDE 24 mmol/L (21-31); CHLORIDE 110 mmol/L (97-110); CREATININE 0.62 mg/dl (0.44-1.00); GLUCOSE 189 mg/dl (70-220); POTASSIUM 3.2 mmol/L (3.5-5.1); SODIUM 138 mmol/L (135-144)
[2017-09-16] MEDS: FAMOTIDINE 20 MG INJ IV (08:24)
[2017-09-16] MEDS: CEFEPIME 1GM/50 ML (PMX) 50 ML IVPB (08:24)
[2017-09-16] MEDS: ENOXAPARIN 30 MG/0.3 ML SYG SC (08:25)
[2017-09-16] MEDS: POTASSIUM CHLORIDE 100 ML IVPB ×2 (13:17→15:24)
[2017-09-16] MEDS: SOD CHLORIDE 0.9% 100 ML (15:05)
[2017-09-16] MEDS: FUROSEMIDE 40 MG INJ IV (15:23)
[2017-09-16 15:34] LABS: B-TYPE NATRIURETIC PEPTIDE 4400 PG/ML (0-450)
[2017-09-16] MEDS: FUROSEMIDE 20 MG INJ IV (17:28)
[2017-09-16 19:50] LABS: TROPONIN-I 0.015 ng/ml (0.000-0.120)
[2017-09-16] MEDS: VANCOMYCIN 750 MG in SOD CHLORIDE 0.9% 150 ML IVPB (20:04)
[2017-09-16] MEDS: METOPROLOL 25 MG TAB PO (21:00)
[2017-09-17 01:11] LABS: TROPONIN-I 0.018 ng/ml (0.000-0.120)
[2017-09-17] MEDS: INSULIN ASPART [NOVOLOG] 3 ML PEN SC ×4 (01:28→17:22)
[2017-09-17 05:29] LABS: ADD MAN DIFF? NO
[2017-09-17 05:33] LABS: WHITE BLOOD COUNT 6.7 10^3/ul (4.8-10.8)
[2017-09-17 05:33] LABS: BASOPHILS % 0.2 % (0.0-2.0); EOSINOPHILS # 0.2 10^3/ul (0.0-0.5); EOSINOPHILS % 3.2 % (0.0-7.0); HEMATOCRIT 36.2 % (37.0-47.0); LYMPHOCYTES # 0.7 10^3/ul (0.8-2.9); LYMPHOCYTES % 10.1 % (15.0-51.0); MEAN CORPUSCULAR HEMOGLOBIN 28.3 pg (29.0-33.0); MEAN CORPUSCULAR HGB CONC 30.4 g/dl (32.0-37.0); MEAN CORPUSCULAR VOLUME 93.1 fl (82.0-101.0); MEAN PLATELET VOLUME 10.4 fl (7.4-10.4); MONOCYTE # 0.5 10^3/ul (0.3-0.9); MONOCYTES % 7.1 % (0.0-11.0); NEUTROPHIL # 5.2 10^3/ul (1.6-7.5); NEUTROPHILS % 78.5 % (39.0-77.0); PLATELET COUNT 186 10^3/UL (140-415); RED BLOOD COUNT 3.89 10^6/ul (4.20-5.40); RED CELL DISTRIBUTION WIDTH 17.7 % (11.5-14.5)
[2017-09-17] MEDS: VASOPRESSIN 60 UNIT in DEXTROSE 5% 57 ML IV ×2 (05:35→17:25)
[2017-09-17] MEDS: FUROSEMIDE 20 MG INJ IV ×2 (06:00→17:19)
[2017-09-17 06:16] LABS: CHOLESTEROL 99 mg/dl (100-200)
[2017-09-17 06:16] LABS: CHOL/HDL RATIO 2.8 RATIO; HDL CHOLESTEROL 35 mg/dl (33-92); LDL CHOLESTEROL,CALCULATED 47 mg/dl; TRIGLYCERIDES 86 mg/dl (0-149)
[2017-09-17 06:38] LABS: ANION GAP 6 (8-16); BLOOD UREA NITROGEN 20 mg/dl (7-20); CALCIUM 7.6 mg/dl (8.4-10.2); CARBON DIOXIDE 27 mmol/L (21-31); CHLORIDE 109 mmol/L (97-110); CREATININE 0.67 mg/dl (0.44-1.00); GLUCOSE 220 mg/dl (70-220); POTASSIUM 3.7 mmol/L (3.5-5.1); SODIUM 138 mmol/L (135-144)
[2017-09-17] MEDS: CEFEPIME 1GM/50 ML (PMX) 50 ML IVPB (08:08)
[2017-09-17] MEDS: ASPIRIN 325 MG TAB PO (08:09)
[2017-09-17] MEDS: METOPROLOL 25 MG TAB PO ×2 (08:09→21:00)
[2017-09-17] MEDS: ENOXAPARIN 30 MG/0.3 ML SYG SC (08:11)
[2017-09-17] MEDS: FAMOTIDINE 20 MG INJ IV (08:13)
[2017-09-17 11:12] LABS: AADO2 Arterial 147.2 mmHg (7.0-24.0); Allen Test ACCEPTAB; Arterial Base Excess 0.5 mmol/L (-3.0-3); Arterial Blood Gas Oxygen Sat 96.7 mmHG (95.0-100.0); Arterial COHb 0.4 % (0.0-3.0); Arterial Fraction of Oxyhgb 96.1 % (93.0-99.0); Arterial HCO3 26.5 mmol/L (22.0-26.0); Arterial MetHb 0.2 % (0.0-1.5); Arterial Total Hemglobin 12.8 g/dl (12.0-18.0); Arterial pCO2 47.9 mmhg (35-45); Blood Gas PS 10; MODE VENT - CPAP; Site Right Radial
[2017-09-17] MEDS: FUROSEMIDE 40 MG INJ IV (14:05)
[2017-09-17] MEDS: ALBUTEROL/IPRATROPIUM (NEB) 3 ML AMP HHN ×3 (14:33→20:55)
[2017-09-17] MEDS: SOD CHLORIDE 0.45% 1,000 ML IV (16:27)
[2017-09-17] MEDS ORDERED: ALBUTEROL/IPRATROPIUM (NEB) 3 ML AMP HHN (17:00)
[2017-09-17] MEDS: VANCOMYCIN 750 MG in SOD CHLORIDE 0.9% 150 ML IVPB (20:30)
[2017-09-17] MEDS: INSULIN GLARGINE [LANTus] (100 UNITS/ML) SYG SC (20:31)
[2017-09-17] MEDS: ENOXAPARIN 60 MG/0.6 ML SYG SC (20:35)
[2017-09-18] MEDS: INSULIN ASPART [NOVOLOG] 3 ML PEN SC ×4 (00:50→18:08)
[2017-09-18] MEDS: ALBUTEROL/IPRATROPIUM (NEB) 3 ML AMP HHN ×6 (01:24→21:00)
[2017-09-18] MEDS: ACCU-CHEK XX (02:00)
[2017-09-18 05:06] LABS: ADD MAN DIFF? NO
[2017-09-18 05:08] LABS: WHITE BLOOD COUNT 7.2 10^3/ul (4.8-10.8)
[2017-09-18 05:08] LABS: ABNORMAL IP MESSAGE 1; BASOPHILS % 0.1 % (0.0-2.0); EOSINOPHILS # 0.1 10^3/ul (0.0-0.5); EOSINOPHILS % 1.2 % (0.0-7.0); HEMOGLOBIN 10.7 g/dl (12.0-16.0); LYMPHOCYTES # 0.5 10^3/ul (0.8-2.9); LYMPHOCYTES % 7.2 % (15.0-51.0); MEAN CORPUSCULAR HEMOGLOBIN 28.3 pg (29.0-33.0); MEAN CORPUSCULAR HGB CONC 29.7 g/dl (32.0-37.0); MEAN CORPUSCULAR VOLUME 95.2 fl (82.0-101.0); MONOCYTE # 0.4 10^3/ul (0.3-0.9); NEUTROPHIL # 6.1 10^3/ul (1.6-7.5); NEUTROPHILS % 84.3 % (39.0-77.0); PLATELET COUNT 231 10^3/UL (140-415); RED BLOOD COUNT 3.78 10^6/ul (4.20-5.40); RED CELL DISTRIBUTION WIDTH 17.9 % (11.5-14.5)
[2017-09-18 05:19] LABS: POSITIVE DIFF @See below
[2017-09-18 05:44] LABS: ANION GAP 8 (8-16); BLOOD UREA NITROGEN 21 mg/dl (7-20); CALCIUM 7.9 mg/dl (8.4-10.2); CARBON DIOXIDE 28 mmol/L (21-31); CHLORIDE 108 mmol/L (97-110); GLUCOSE 166 mg/dl (70-220); POTASSIUM 3.7 mmol/L (3.5-5.1); SODIUM 140 mmol/L (135-144)
[2017-09-18] MEDS: VASOPRESSIN 60 UNIT in DEXTROSE 5% 57 ML IV (06:30)
[2017-09-18] MEDS: FAMOTIDINE 20 MG INJ IV (08:52)
[2017-09-18] MEDS: ASPIRIN 81 MG TAB NGT (08:52)
[2017-09-18] MEDS: CEFEPIME 1GM/50 ML (PMX) 50 ML IVPB (08:52)
[2017-09-18] MEDS: METOPROLOL 25 MG TAB PO ×2 (08:53→21:03)
[2017-09-18] MEDS: ENOXAPARIN 60 MG/0.6 ML SYG SC ×2 (09:06→21:01)
[2017-09-18] MEDS: FUROSEMIDE 20 MG INJ IV ×2 (11:03→18:04)
[2017-09-18] MEDS: DIGOXIN 500 MCG INJ IV (15:59)
[2017-09-18] MEDS: SOD CHLORIDE 0.45% 1,000 ML IV (18:29)
[2017-09-18] MEDS: INSULIN GLARGINE [LANTus] (100 UNITS/ML) SYG SC (21:08)
[2017-09-19] MEDS: ALBUTEROL/IPRATROPIUM (NEB) 3 ML AMP HHN ×7 (00:11→20:19)
[2017-09-19] MEDS: INSULIN ASPART [NOVOLOG] 3 ML PEN SC ×5 (01:23→23:58)
[2017-09-19] MEDS: ACCU-CHEK XX (01:24)
[2017-09-19] MEDS: FUROSEMIDE 20 MG INJ IV ×2 (06:03→17:14)
[2017-09-19] MEDS: METOPROLOL 25 MG TAB PO ×2 (08:08→20:46)
[2017-09-19] MEDS: FAMOTIDINE 20 MG INJ IV (08:28)
[2017-09-19] MEDS: ASPIRIN 81 MG TAB NGT (08:29)
[2017-09-19] MEDS: CEFEPIME 1GM/50 ML (PMX) 50 ML IVPB (08:29)
[2017-09-19 08:44] LABS: ADD MAN DIFF? NO
[2017-09-19 08:51] LABS: WHITE BLOOD COUNT 9.1 10^3/ul (4.8-10.8)
[2017-09-19 08:51] LABS: BASOPHILS % 0.1 % (0.0-2.0); EOSINOPHILS # 0.1 10^3/ul (0.0-0.5); EOSINOPHILS % 1.5 % (0.0-7.0); HEMATOCRIT 37.1 % (37.0-47.0); HEMOGLOBIN 10.9 g/dl (12.0-16.0); LYMPHOCYTES # 0.8 10^3/ul (0.8-2.9); LYMPHOCYTES % 8.8 % (15.0-51.0); MEAN CORPUSCULAR HEMOGLOBIN 27.7 pg (29.0-33.0); MEAN CORPUSCULAR HGB CONC 29.4 g/dl (32.0-37.0); MEAN CORPUSCULAR VOLUME 94.4 fl (82.0-101.0); MEAN PLATELET VOLUME 10.8 fl (7.4-10.4); MONOCYTE # 0.4 10^3/ul (0.3-0.9); MONOCYTES % 4.6 % (0.0-11.0); NEUTROPHIL # 7.7 10^3/ul (1.6-7.5); NEUTROPHILS % 84.3 % (39.0-77.0); PLATELET COUNT 287 10^3/UL (140-415); RED BLOOD COUNT 3.93 10^6/ul (4.20-5.40); RED CELL DISTRIBUTION WIDTH 17.5 % (11.5-14.5)
[2017-09-19] MEDS: ENOXAPARIN 60 MG/0.6 ML SYG SC ×2 (08:59→20:52)
[2017-09-19 09:08] LABS: ANION GAP 8 (8-16); BLOOD UREA NITROGEN 22 mg/dl (7-20); CALCIUM 8.2 mg/dl (8.4-10.2); CARBON DIOXIDE 34 mmol/L (21-31); CHLORIDE 101 mmol/L (97-110); CREATININE 0.63 mg/dl (0.44-1.00); GLUCOSE 127 mg/dl (70-220); POTASSIUM 3.5 mmol/L (3.5-5.1); SODIUM 139 mmol/L (135-144)
[2017-09-19] MEDS: SOD CHLORIDE 0.45% 1,000 ML IV (20:39)
[2017-09-19] MEDS: INSULIN GLARGINE [LANTus] (100 UNITS/ML) SYG SC (20:52)
[2017-09-20] MEDS: ALBUTEROL/IPRATROPIUM (NEB) 3 ML AMP HHN ×6 (01:05→20:43)
[2017-09-20] MEDS: ACCU-CHEK XX (02:00)
[2017-09-20] MEDS: METOPROLOL 25 MG TAB PO ×3 (04:12→21:45)
[2017-09-20] MEDS: FUROSEMIDE 20 MG INJ IV ×2 (05:57→17:51)
[2017-09-20] MEDS: INSULIN ASPART [NOVOLOG] 3 ML PEN SC ×3 (06:24→17:47)
[2017-09-20 06:30] LABS: ADD MAN DIFF? NO
[2017-09-20 06:33] LABS: BASOPHILS % 0.1 % (0.0-2.0); EOSINOPHILS # 0.1 10^3/ul (0.0-0.5); EOSINOPHILS % 1.3 % (0.0-7.0); HEMATOCRIT 29.6 % (37.0-47.0); HEMOGLOBIN 8.8 g/dl (12.0-16.0); LYMPHOCYTES # 0.9 10^3/ul (0.8-2.9); LYMPHOCYTES % 10.4 % (15.0-51.0); MEAN CORPUSCULAR HEMOGLOBIN 28.9 pg (29.0-33.0); MEAN CORPUSCULAR HGB CONC 29.7 g/dl (32.0-37.0); MEAN PLATELET VOLUME 10.7 fl (7.4-10.4); MONOCYTE # 0.5 10^3/ul (0.3-0.9); MONOCYTES % 6.2 % (0.0-11.0); NEUTROPHIL # 6.6 10^3/ul (1.6-7.5); NEUTROPHILS % 80.9 % (39.0-77.0); PLATELET COUNT 289 10^3/UL (140-415); RED BLOOD COUNT 3.05 10^6/ul (4.20-5.40); RED CELL DISTRIBUTION WIDTH 17.3 % (11.5-14.5)
[2017-09-20 06:33] LABS: WHITE BLOOD COUNT 8.2 10^3/ul (4.8-10.8)
[2017-09-20 07:17] LABS: ANION GAP 8 (8-16); BLOOD UREA NITROGEN 37 mg/dl (7-20); CALCIUM 7.8 mg/dl (8.4-10.2); CARBON DIOXIDE 37 mmol/L (21-31); CHLORIDE 99 mmol/L (97-110); CREATININE 0.63 mg/dl (0.44-1.00); GLUCOSE 235 mg/dl (70-220); POTASSIUM 3.9 mmol/L (3.5-5.1); SODIUM 140 mmol/L (135-144)
[2017-09-20] MEDS: ASPIRIN 81 MG TAB NGT (09:22)
[2017-09-20] MEDS: CEFEPIME 1GM/50 ML (PMX) 50 ML IVPB (09:22)
[2017-09-20] MEDS: FAMOTIDINE 20 MG INJ IV (09:22)
[2017-09-20] MEDS: ENOXAPARIN 60 MG/0.6 ML SYG SC ×2 (09:31→21:57)
[2017-09-20] MEDS: SOD CHLORIDE 0.45% 1,000 ML IV (20:19)
[2017-09-20] MEDS: INSULIN GLARGINE [LANTus] (100 UNITS/ML) SYG SC (21:57)
[2017-09-20] MEDS ORDERED: morphine LIQ (10 MG/5 ML) CUP PO (23:30)
[2017-09-21] MEDS: ALBUTEROL/IPRATROPIUM (NEB) 3 ML AMP HHN ×6 (00:11→20:37)
[2017-09-21] MEDS: INSULIN ASPART [NOVOLOG] 3 ML PEN SC ×4 (01:19→17:25)
[2017-09-21] MEDS: ACCU-CHEK XX (01:21)
[2017-09-21] MEDS: SOD CHLORIDE 0.45% 1,000 ML IV ×2 (06:26→19:00)
[2017-09-21] MEDS: FUROSEMIDE 20 MG INJ IV ×2 (06:27→17:21)
[2017-09-21 07:19] LABS: ADD MAN DIFF? NO
[2017-09-21 07:20] LABS: ABNORMAL IP MESSAGE 1; BASOPHILS % 0.2 % (0.0-2.0); EOSINOPHILS # 0.1 10^3/ul (0.0-0.5); EOSINOPHILS % 1.5 % (0.0-7.0); HEMATOCRIT 22.1 % (37.0-47.0); IMMATURE GRANS #M 0.19 10^3/ul; LYMPHOCYTES # 1.3 10^3/ul (0.8-2.9); LYMPHOCYTES % 13.5 % (15.0-51.0); MEAN CORPUSCULAR HEMOGLOBIN 28.9 pg (29.0-33.0); MEAN CORPUSCULAR HGB CONC 29.9 g/dl (32.0-37.0); MEAN CORPUSCULAR VOLUME 96.9 fl (82.0-101.0); MEAN PLATELET VOLUME 10.7 fl (7.4-10.4); MONOCYTE # 0.7 10^3/ul (0.3-0.9); MONOCYTES % 6.8 % (0.0-11.0); NEUTROPHIL # 7.2 10^3/ul (1.6-7.5); PLATELET COUNT 290 10^3/UL (140-415); RED BLOOD COUNT 2.28 10^6/ul (4.20-5.40); RED CELL DISTRIBUTION WIDTH 17.2 % (11.5-14.5)
[2017-09-21 07:20] LABS: WHITE BLOOD COUNT 9.5 10^3/ul (4.8-10.8)
[2017-09-21 07:29] LABS: HEMOGLOBIN 6.6 g/dl (12.0-16.0); POSITIVE DIFF @See below
[2017-09-21 07:44] LABS: BLOOD UREA NITROGEN 53 mg/dl (7-20); CALCIUM 7.9 mg/dl (8.4-10.2); CHLORIDE 94 mmol/L (97-110); CREATININE 0.61 mg/dl (0.44-1.00); GLUCOSE 189 mg/dl (70-220); POTASSIUM 3.4 mmol/L (3.5-5.1); SODIUM 140 mmol/L (135-144)
[2017-09-21 07:58] LABS: ANION GAP 4 (8-16); CARBON DIOXIDE 45 mmol/L (21-31)
[2017-09-21] MEDS: FAMOTIDINE 20 MG INJ IV (08:35)
[2017-09-21] MEDS: METOPROLOL 25 MG TAB PO ×2 (08:35→20:36)
[2017-09-21] MEDS: CEFEPIME 1GM/50 ML (PMX) 50 ML IVPB (08:35)
[2017-09-21] MEDS: ASPIRIN 81 MG TAB NGT (08:35)
[2017-09-21] MEDS: ENOXAPARIN 60 MG/0.6 ML SYG SC ×2 (08:48→20:51)
[2017-09-21 10:11] LABS: PATH REVIEW? YES
[2017-09-21 12:18] LABS: HEMOGLOBIN 6.6 g/dl (12.0-16.0)
[2017-09-21 16:29] LABS: IMMEDIATE SPIN CROSSMATCH 1 4
[2017-09-21] MEDS: INSULIN GLARGINE [LANTus] (100 UNITS/ML) SYG SC (20:52)
[2017-09-22] MEDS: INSULIN ASPART [NOVOLOG] 3 ML PEN SC ×5 (00:05→23:59)
[2017-09-22] MEDS: ALBUTEROL/IPRATROPIUM (NEB) 3 ML AMP HHN ×6 (00:59→21:47)
[2017-09-22] MEDS: ACCU-CHEK XX (01:36)
[2017-09-22 05:18] LABS: AADO2 Arterial 57.1 mmHg (7.0-24.0); Allen Test ACCEPTAB; Arterial Base Excess 19.3 mmol/L (-3.0-3); Arterial Blood Gas Oxygen Sat 91.3 mmHG (95.0-100.0); Arterial COHb 0.4 % (0.0-3.0); Arterial Fraction of Oxyhgb 90.8 % (93.0-99.0); Arterial HCO3 45.7 mmol/L (22.0-26.0); Arterial MetHb 0.1 % (0.0-1.5); Arterial Total Hemglobin 9.1 g/dl (12.0-18.0); Arterial pCO2 66.4 mmhg (35-45); MODE NASAL CANNULA; Site Right Radial
[2017-09-22] MEDS: FUROSEMIDE 20 MG INJ IV ×2 (06:34→17:26)
[2017-09-22 07:11] LABS: ADD MAN DIFF? NO
[2017-09-22 07:15] LABS: BASOPHILS % 0.4 % (0.0-2.0); EOSINOPHILS # 0.1 10^3/ul (0.0-0.5); EOSINOPHILS % 1.3 % (0.0-7.0); HEMATOCRIT 27.6 % (37.0-47.0); HEMOGLOBIN 8.8 g/dl (12.0-16.0); IMMATURE GRANS #M 0.19 10^3/ul; IMMATURE GRANS % (M) 2.1 %; LYMPHOCYTES # 1.6 10^3/ul (0.8-2.9); LYMPHOCYTES % 17.3 % (15.0-51.0); MEAN CORPUSCULAR HGB CONC 31.9 g/dl (32.0-37.0); MEAN CORPUSCULAR VOLUME 94.2 fl (82.0-101.0); MEAN PLATELET VOLUME 10.9 fl (7.4-10.4); MONOCYTE # 0.7 10^3/ul (0.3-0.9); MONOCYTES % 7.7 % (0.0-11.0); NEUTROPHIL # 6.6 10^3/ul (1.6-7.5); NEUTROPHILS % 71.2 % (39.0-77.0); NUCLEATED RED BLOOD CELLS% 0.2 /100WBC (0.0-0.0); PLATELET COUNT 312 10^3/UL (140-415); RED BLOOD COUNT 2.93 10^6/ul (4.20-5.40); RED CELL DISTRIBUTION WIDTH 16.2 % (11.5-14.5)
[2017-09-22 07:15] LABS: WHITE BLOOD COUNT 9.2 10^3/ul (4.8-10.8)
[2017-09-22 07:36] LABS: POTASSIUM 3.6 mmol/L (3.5-5.1); SODIUM 138 mmol/L (135-144)
[2017-09-22 07:37] LABS: BLOOD UREA NITROGEN 48 mg/dl (7-20); CALCIUM 7.7 mg/dl (8.4-10.2); CREATININE 0.48 mg/dl (0.44-1.00); GLUCOSE 103 mg/dl (70-220)
[2017-09-22 07:47] LABS: CARBON DIOXIDE 44 mmol/L (21-31)
[2017-09-22 07:48] LABS: ANION GAP 7 (8-16); CHLORIDE 91 mmol/L (97-110)
[2017-09-22] MEDS: CEFEPIME 1GM/50 ML (PMX) 50 ML IVPB (09:00)
[2017-09-22] MEDS: ENOXAPARIN 60 MG/0.6 ML SYG SC ×2 (09:00→20:42)
[2017-09-22] MEDS: ASPIRIN 81 MG TAB NGT (09:00)
[2017-09-22] MEDS: METOPROLOL 25 MG TAB PO ×2 (09:00→20:37)
[2017-09-22] MEDS: FAMOTIDINE 20 MG INJ IV (09:00)
[2017-09-22] MEDS: SOD CHLORIDE 0.45% 1,000 ML IV ×2 (19:00→22:11)
[2017-09-22] MEDS: INSULIN GLARGINE [LANTus] (100 UNITS/ML) SYG SC (20:42)
[2017-09-23] MEDS: ALBUTEROL/IPRATROPIUM (NEB) 3 ML AMP HHN ×6 (01:53→20:42)
[2017-09-23] MEDS: ACCU-CHEK XX (02:00)
[2017-09-23] MEDS: INSULIN ASPART [NOVOLOG] 3 ML PEN SC ×3 (06:00→18:00)
[2017-09-23] MEDS: FUROSEMIDE 20 MG INJ IV ×2 (06:09→17:56)
[2017-09-23] MEDS: CEFEPIME 1GM/50 ML (PMX) 50 ML IVPB (09:14)
[2017-09-23] MEDS: METOPROLOL 25 MG TAB PO ×2 (09:21→21:40)
[2017-09-23] MEDS: ASPIRIN 81 MG TAB NGT (09:22)
[2017-09-23] MEDS: ENOXAPARIN 60 MG/0.6 ML SYG SC ×2 (09:29→21:51)
[2017-09-23] MEDS: FAMOTIDINE 20 MG INJ IV (09:31)
[2017-09-23] MEDS: FUROSEMIDE 40 MG INJ IV (14:04)
[2017-09-23] MEDS: INSULIN GLARGINE [LANTus] (100 UNITS/ML) SYG SC (22:10)
[2017-09-23] MEDS: DOCUSATE SODIUM 10 MG/ML (10ML CUP) GTB (22:37)
[2017-09-23] MEDS: SOD CHLORIDE 0.45% 1,000 ML IV (23:37)
[2017-09-24] MEDS: ALBUTEROL/IPRATROPIUM (NEB) 3 ML AMP HHN ×6 (00:02→22:03)
[2017-09-24] MEDS: INSULIN ASPART [NOVOLOG] 3 ML PEN SC ×4 (00:28→19:29)
[2017-09-24] MEDS: ACCU-CHEK XX (02:00)
[2017-09-24] MEDS: FUROSEMIDE 20 MG INJ IV ×2 (06:19→19:35)
[2017-09-24 06:42] LABS: ADD MAN DIFF? NO
[2017-09-24 06:49] LABS: WHITE BLOOD COUNT 9.6 10^3/ul (4.8-10.8)
[2017-09-24 06:49] LABS: ABNORMAL IP MESSAGE 1; BASOPHILS % 0.3 % (0.0-2.0); EOSINOPHILS # 0.1 10^3/ul (0.0-0.5); EOSINOPHILS % 1.1 % (0.0-7.0); HEMATOCRIT 18.6 % (37.0-47.0); IMMATURE GRANS #M 0.25 10^3/ul; IMMATURE GRANS % (M) 2.6 %; LYMPHOCYTES # 1.6 10^3/ul (0.8-2.9); LYMPHOCYTES % 16.3 % (15.0-51.0); MEAN CORPUSCULAR HEMOGLOBIN 30.8 pg (29.0-33.0); MEAN CORPUSCULAR HGB CONC 30.1 g/dl (32.0-37.0); MEAN CORPUSCULAR VOLUME 102.2 fl (82.0-101.0); MEAN PLATELET VOLUME 10.8 fl (7.4-10.4); MONOCYTE # 0.8 10^3/ul (0.3-0.9); MONOCYTES % 8.7 % (0.0-11.0); NEUTROPHIL # 6.8 10^3/ul (1.6-7.5); NUCLEATED RED BLOOD CELLS% 0.4 /100WBC (0.0-0.0); PLATELET COUNT 282 10^3/UL (140-415); RED BLOOD COUNT 1.82 10^6/ul (4.20-5.40); RED CELL DISTRIBUTION WIDTH 16.5 % (11.5-14.5)
[2017-09-24 06:56] LABS: HEMOGLOBIN 5.6 g/dl (12.0-16.0); POSITIVE DIFF @See below
[2017-09-24 07:08] LABS: BLOOD UREA NITROGEN 61 mg/dl (7-20); CALCIUM 7.9 mg/dl (8.4-10.2); CHLORIDE 88 mmol/L (97-110); CREATININE 0.74 mg/dl (0.44-1.00); GLUCOSE 174 mg/dl (70-220); POTASSIUM 3.6 mmol/L (3.5-5.1); SODIUM 140 mmol/L (135-144)
[2017-09-24 07:19] LABS: ANION GAP 7 (8-16); CARBON DIOXIDE 49 mmol/L (21-31)
[2017-09-24] MEDS: ENOXAPARIN 60 MG/0.6 ML SYG SC ×2 (09:00→10:56)
[2017-09-24 09:01] LABS: ADD MAN DIFF? NO
[2017-09-24 09:04] LABS: WHITE BLOOD COUNT 10.5 10^3/ul (4.8-10.8)
[2017-09-24 09:04] LABS: ABNORMAL IP MESSAGE 1; BASOPHILS % 0.4 % (0.0-2.0); EOSINOPHILS # 0.1 10^3/ul (0.0-0.5); EOSINOPHILS % 0.8 % (0.0-7.0); IMMATURE GRANS #M 0.27 10^3/ul; IMMATURE GRANS % (M) 2.6 %; LYMPHOCYTES # 1.5 10^3/ul (0.8-2.9); LYMPHOCYTES % 13.8 % (15.0-51.0); MEAN CORPUSCULAR HEMOGLOBIN 30.8 pg (29.0-33.0); MEAN CORPUSCULAR HGB CONC 30.5 g/dl (32.0-37.0); MEAN PLATELET VOLUME 10.7 fl (7.4-10.4); MONOCYTES % 9.2 % (0.0-11.0); NEUTROPHIL # 7.7 10^3/ul (1.6-7.5); NEUTROPHILS % 73.2 % (39.0-77.0); NUCLEATED RED BLOOD CELLS # 0.1 10^3/ul (0.0-0.0); NUCLEATED RED BLOOD CELLS% 0.6 /100WBC (0.0-0.0); PLATELET COUNT 302 10^3/UL (140-415); RED BLOOD COUNT 1.98 10^6/ul (4.20-5.40); RED CELL DISTRIBUTION WIDTH 16.7 % (11.5-14.5)
[2017-09-24 09:20] LABS: HEMOGLOBIN 6.1 g/dl (12.0-16.0); IRON 72 ug/dl (35-150); POSITIVE DIFF @See below
[2017-09-24 09:30] LABS: % IRON SATURATION 25 % SAT (22-52); TOTAL IRON BINDING CAPACITY 284 ug/dl (241-421)
[2017-09-24 09:57] LABS: FERRITIN 69.8 ng/ml (11.1-264.0)
[2017-09-24 10:29] LABS: FOLATE 9.2 ng/ml (2.8-20.0)
[2017-09-24] MEDS: FAMOTIDINE 20 MG INJ IV (10:37)
[2017-09-24] MEDS: CEFEPIME 1GM/50 ML (PMX) 50 ML IVPB (10:37)
[2017-09-24] MEDS: ASPIRIN 81 MG TAB NGT (10:37)
[2017-09-24] MEDS: METOPROLOL 25 MG TAB PO ×2 (10:38→20:56)
[2017-09-24] MEDS: PANTOPRAZOLE 40 MG INJ IV ×2 (14:00→19:33)
[2017-09-24] MEDS: FUROSEMIDE 40 MG INJ IV (14:45)
[2017-09-24 15:53] LABS: IMMEDIATE SPIN CROSSMATCH 1 4
[2017-09-24 16:24] LABS: AADO2 Arterial 290.8 mmHg (7.0-24.0); Allen Test ACCEPTAB; Arterial Base Excess 19.7 mmol/L (-3.0-3); Arterial Blood Gas Oxygen Sat 99.5 mmHG (95.0-100.0); Arterial COHb 0.9 % (0.0-3.0); Arterial HCO3 47.8 mmol/L (22.0-26.0); Arterial MetHb 0.6 % (0.0-1.5); Arterial Total Hemglobin 7.8 g/dl (12.0-18.0); Arterial pCO2 87.9 mmhg (35-45); MODE MASK - NRB; Site Right Radial
[2017-09-24] MEDS: INSULIN GLARGINE [LANTus] (100 UNITS/ML) SYG SC (20:55)
[2017-09-24 21:50] LABS: AADO2 Arterial 169.6 mmHg (7.0-24.0); Arterial Blood Gas Oxygen Sat 96.6 mmHG (95.0-100.0); Arterial COHb 0.2 % (0.0-3.0); Arterial HCO3 51.6 mmol/L (22.0-26.0); Arterial MetHb 0.4 % (0.0-1.5); Arterial Total Hemglobin 9.7 g/dl (12.0-18.0); Arterial pCO2 86.8 mmhg (35-45); Blood Gas IEPAP 16/8; Blood Gas PS 8; MODE MASK - BIPAP; Site LB
[2017-09-24] MEDS: SOD CHLORIDE 0.9% 250 ML IV* (23:28)
[2017-09-24] MEDS: ACETAZOLAMIDE 500 MG INJ IV (23:28)
[2017-09-25] MEDS: ALBUTEROL/IPRATROPIUM (NEB) 3 ML AMP HHN ×6 (01:15→20:16)
[2017-09-25] MEDS: D5W-0.45 NACL + KCL 20 MEQ 1,000 ML IV ×3 (01:33→19:25)
[2017-09-25] MEDS: INSULIN ASPART [NOVOLOG] 3 ML PEN SC ×5 (01:33→21:00)
[2017-09-25] MEDS: ACCU-CHEK XX (01:34)
[2017-09-25 05:32] LABS: ADD MAN DIFF? NO
[2017-09-25 05:41] LABS: BASOPHIL # 0.1 10^3/ul (0.0-0.1); BASOPHILS % 0.6 % (0.0-2.0); EOSINOPHILS # 0.1 10^3/ul (0.0-0.5); EOSINOPHILS % 1.1 % (0.0-7.0); HEMATOCRIT 30.5 % (37.0-47.0); HEMOGLOBIN 9.9 g/dl (12.0-16.0); IMMATURE GRANS % (M) 3.7 %; LYMPHOCYTES # 1.5 10^3/ul (0.8-2.9); LYMPHOCYTES % 14.2 % (15.0-51.0); MEAN CORPUSCULAR HEMOGLOBIN 30.7 pg (29.0-33.0); MEAN CORPUSCULAR HGB CONC 32.5 g/dl (32.0-37.0); MEAN CORPUSCULAR VOLUME 94.7 fl (82.0-101.0); MEAN PLATELET VOLUME 10.6 fl (7.4-10.4); MONOCYTE # 0.8 10^3/ul (0.3-0.9); MONOCYTES % 7.4 % (0.0-11.0); NEUTROPHIL # 7.8 10^3/ul (1.6-7.5); NUCLEATED RED BLOOD CELLS% 0.4 /100WBC (0.0-0.0); PLATELET COUNT 275 10^3/UL (140-415); RED BLOOD COUNT 3.22 10^6/ul (4.20-5.40); RED CELL DISTRIBUTION WIDTH 16.7 % (11.5-14.5)
[2017-09-25 05:41] LABS: WHITE BLOOD COUNT 10.7 10^3/ul (4.8-10.8)
[2017-09-25] MEDS: PANTOPRAZOLE 40 MG INJ IV ×2 (06:19→17:09)
[2017-09-25] MEDS: FUROSEMIDE 20 MG INJ IV ×2 (06:20→17:09)
[2017-09-25 06:25] LABS: BLOOD UREA NITROGEN 59 mg/dl (7-20); CALCIUM 8.1 mg/dl (8.4-10.2); CHLORIDE 90 mmol/L (97-110); CREATININE 0.79 mg/dl (0.44-1.00); GLUCOSE 138 mg/dl (70-220); POTASSIUM 3.3 mmol/L (3.5-5.1); SODIUM 143 mmol/L (135-144)
[2017-09-25 06:42] LABS: ANION GAP 10 (8-16)
[2017-09-25 06:44] LABS: CARBON DIOXIDE 46 mmol/L (21-31)
[2017-09-25] MEDS: FAMOTIDINE 20 MG INJ IV (09:34)
[2017-09-25] MEDS: METOPROLOL 25 MG TAB PO ×2 (09:34→21:10)
[2017-09-25] MEDS: ASPIRIN 81 MG TAB NGT (09:34)
[2017-09-25] MEDS: POTASSIUM CHLORIDE 50 ML IVPB ×2 (11:04→12:14)
[2017-09-25] MEDS: DEXTROSE 50% 50 ML SYRINGE IV (12:14)
[2017-09-25 12:19] LABS: HEMATOCRIT 30.9 % (37.0-47.0); HEMOGLOBIN 9.9 g/dl (12.0-16.0)
[2017-09-25 13:27] LABS: AADO2 Arterial 77.8 mmHg (7.0-24.0); Allen Test ACCEPTAB; Arterial Base Excess 16.6 mmol/L (-3.0-3); Arterial Blood Gas Oxygen Sat 90.9 mmHG (95.0-100.0); Arterial COHb 0.5 % (0.0-3.0); Arterial Fraction of Oxyhgb 90.3 % (93.0-99.0); Arterial HCO3 43.5 mmol/L (22.0-26.0); Arterial MetHb 0.2 % (0.0-1.5); Arterial Total Hemglobin 11.2 g/dl (12.0-18.0); Arterial pCO2 65.4 mmhg (35-45); Blood Gas PS 12; MODE MASK - BIPAP; Site Right Radial
[2017-09-25 19:54] LABS: HEMATOCRIT 31.2 % (37.0-47.0)
[2017-09-25] MEDS: INSULIN GLARGINE [LANTus] (100 UNITS/ML) SYG SC (21:09)
[2017-09-26] MEDS: ACCU-CHEK XX (00:30)
[2017-09-26] MEDS: INSULIN ASPART [NOVOLOG] 3 ML PEN SC ×6 (00:30→20:24)
[2017-09-26] MEDS: ALBUTEROL/IPRATROPIUM (NEB) 3 ML AMP HHN ×6 (04:08→20:50)
[2017-09-26] MEDS: D5W-0.45 NACL + KCL 20 MEQ 1,000 ML IV ×2 (05:06→20:21)
[2017-09-26] MEDS: PANTOPRAZOLE 40 MG INJ IV ×2 (05:06→17:21)
[2017-09-26] MEDS: FUROSEMIDE 20 MG INJ IV ×2 (05:07→17:21)
[2017-09-26 05:13] LABS: HEMATOCRIT 29.6 % (37.0-47.0); HEMOGLOBIN 9.3 g/dl (12.0-16.0)
[2017-09-26 05:25] LABS: RETICULOCYTE COUNT # 0.129 X10^6 (0.020-0.110); RETICULOCYTE COUNT % 4.2 % (0.5-1.5)
[2017-09-26 05:25] LABS: RETICULOCYTE RBC 3.09
[2017-09-26] MEDS: ASPIRIN 81 MG TAB NGT (08:47)
[2017-09-26] MEDS: FAMOTIDINE 20 MG INJ IV (08:47)
[2017-09-26] MEDS: METOPROLOL 25 MG TAB PO ×2 (08:47→20:21)
[2017-09-26 08:52] LABS: AADO2 Arterial 79.3 mmHg (7.0-24.0); Allen Test ACCEPTAB; Arterial Blood Gas Oxygen Sat 93.3 mmHG (95.0-100.0); Arterial COHb 0.5 % (0.0-3.0); Arterial Fraction of Oxyhgb 92.6 % (93.0-99.0); Arterial HCO3 41.2 mmol/L (22.0-26.0); Arterial MetHb 0.2 % (0.0-1.5); Arterial Total Hemglobin 10.6 g/dl (12.0-18.0); Arterial pCO2 60.1 mmhg (35-45); MODE NASAL CANNULA; Site Right Radial
[2017-09-26 10:58] LABS: BLOOD UREA NITROGEN 36 mg/dl (7-20); CALCIUM 8.1 mg/dl (8.4-10.2); CHLORIDE 96 mmol/L (97-110); CREATININE 0.73 mg/dl (0.44-1.00); GLUCOSE 152 mg/dl (70-220); POTASSIUM 3.7 mmol/L (3.5-5.1); SODIUM 142 mmol/L (135-144)
[2017-09-26 11:11] LABS: ANION GAP 8 (8-16)
[2017-09-26 11:13] LABS: CARBON DIOXIDE 42 mmol/L (21-31)
[2017-09-26 14:03] LABS: HEMATOCRIT 31.3 % (37.0-47.0); HEMOGLOBIN 9.7 g/dl (12.0-16.0)
[2017-09-26] MEDS: INSULIN GLARGINE [LANTus] (100 UNITS/ML) SYG SC (20:23)
[2017-09-26 21:23] LABS: OCCULT BLOOD STOOL NEGATIVE (NEGATIVE)
[2017-09-27] MEDS: ACCU-CHEK XX (00:31)
[2017-09-27] MEDS: INSULIN ASPART [NOVOLOG] 3 ML PEN SC ×6 (00:31→20:34)
[2017-09-27] MEDS: ALBUTEROL/IPRATROPIUM (NEB) 3 ML AMP HHN ×6 (00:47→20:46)
[2017-09-27] MEDS: FUROSEMIDE 20 MG INJ IV (05:06)
[2017-09-27] MEDS: PANTOPRAZOLE 40 MG INJ IV ×2 (05:06→16:56)
[2017-09-27 05:50] LABS: ALANINE AMINOTRANSFERASE 20 IU/L (13-69); ALBUMIN 2.7 g/dl (3.3-4.9); ALBUMIN/GLOBULIN RATIO 0.87; ALKALINE PHOSPHATASE 77 IU/L (42-121); ANION GAP 8 (8-16); ASPARTATE AMINO TRANSFERASE 25 IU/L (15-46); BILIRUBIN,INDIRECT 0.4 mg/dl (0-1.1); BILIRUBIN,TOTAL 0.4 mg/dl (0.2-1.3); BLOOD UREA NITROGEN 26 mg/dl (7-20); CALCIUM 8.2 mg/dl (8.4-10.2); CARBON DIOXIDE 40 mmol/L (21-31); CHLORIDE 98 mmol/L (97-110); CREATININE 0.63 mg/dl (0.44-1.00); GLUCOSE 134 mg/dl (70-220); POTASSIUM 3.5 mmol/L (3.5-5.1); SODIUM 142 mmol/L (135-144); TOTAL PROTEIN 5.8 g/dl (6.1-8.1)
[2017-09-27 07:40] LABS: AADO2 Arterial 103.4 mmHg (7.0-24.0); Arterial Base Excess 13.5 mmol/L (-3.0-3); Arterial Blood Gas Oxygen Sat 91.4 mmHG (95.0-100.0); Arterial COHb 0.5 % (0.0-3.0); Arterial Fraction of Oxyhgb 90.9 % (93.0-99.0); Arterial HCO3 40.1 mmol/L (22.0-26.0); Arterial MetHb 0.1 % (0.0-1.5); Arterial Total Hemglobin 10.6 g/dl (12.0-18.0); Arterial pCO2 62.6 mmhg (35-45); MODE NASAL CANNULA
[2017-09-27 07:51] LABS: Site Right Brachial
[2017-09-27] MEDS: FAMOTIDINE 20 MG INJ IV (09:13)
[2017-09-27] MEDS: ASPIRIN 81 MG TAB NGT (09:13)
[2017-09-27] MEDS: METOPROLOL 25 MG TAB PO ×2 (09:14→20:34)
[2017-09-27] MEDS: D5W-0.45 NACL + KCL 20 MEQ 1,000 ML IV (12:01)
[2017-09-27 12:15] LABS: ADD MAN DIFF? NO
[2017-09-27 12:29] LABS: WHITE BLOOD COUNT 12.4 10^3/ul (4.8-10.8)
[2017-09-27 12:29] LABS: BASOPHILS % 0.3 % (0.0-2.0); EOSINOPHILS # 0.1 10^3/ul (0.0-0.5); EOSINOPHILS % 0.6 % (0.0-7.0); HEMATOCRIT 30.7 % (37.0-47.0); HEMOGLOBIN 9.5 g/dl (12.0-16.0); LYMPHOCYTES # 1.1 10^3/ul (0.8-2.9); LYMPHOCYTES % 8.8 % (15.0-51.0); MEAN CORPUSCULAR HEMOGLOBIN 30.9 pg (29.0-33.0); MEAN CORPUSCULAR HGB CONC 30.9 g/dl (32.0-37.0); MEAN PLATELET VOLUME 10.1 fl (7.4-10.4); MONOCYTE # 0.7 10^3/ul (0.3-0.9); MONOCYTES % 5.4 % (0.0-11.0); NEUTROPHIL # 10.3 10^3/ul (1.6-7.5); NEUTROPHILS % 83.1 % (39.0-77.0); PLATELET COUNT 307 10^3/UL (140-415); RED BLOOD COUNT 3.07 10^6/ul (4.20-5.40); RED CELL DISTRIBUTION WIDTH 17.8 % (11.5-14.5)
[2017-09-27 12:47] LABS: INR 0.96; PROTIME 12.9 Sec (11.9-14.9)
[2017-09-27] MEDS ORDERED: FUROSEMIDE 40 MG INJ (16:54)
[2017-09-27] MEDS: FUROSEMIDE 40 MG INJ IV (16:56)
[2017-09-27] MEDS: INSULIN GLARGINE [LANTus] (100 UNITS/ML) SYG SC (20:29)
[2017-09-28] MEDS: INSULIN ASPART [NOVOLOG] 3 ML PEN SC ×6 (01:00→21:00)
[2017-09-28] MEDS: ALBUTEROL/IPRATROPIUM (NEB) 3 ML AMP HHN ×6 (01:32→22:02)
[2017-09-28] MEDS: DEXTROSE 50% 50 ML SYRINGE IV ×2 (01:48→14:31)
[2017-09-28] MEDS: ACCU-CHEK XX (01:49)
[2017-09-28] MEDS: D5W-0.45 NACL + KCL 20 MEQ 1,000 ML IV ×3 (03:09→19:50)
[2017-09-28 05:33] LABS: ADD MAN DIFF? NO
[2017-09-28 05:34] LABS: WHITE BLOOD COUNT 18.7 10^3/ul (4.8-10.8)
[2017-09-28 05:34] LABS: BASOPHIL # 0.1 10^3/ul (0.0-0.1); BASOPHILS % 0.3 % (0.0-2.0); EOSINOPHILS # 0.1 10^3/ul (0.0-0.5); EOSINOPHILS % 0.4 % (0.0-7.0); HEMATOCRIT 31.7 % (37.0-47.0); HEMOGLOBIN 9.6 g/dl (12.0-16.0); LYMPHOCYTES # 1.2 10^3/ul (0.8-2.9); LYMPHOCYTES % 6.5 % (15.0-51.0); MEAN CORPUSCULAR HEMOGLOBIN 29.7 pg (29.0-33.0); MEAN CORPUSCULAR HGB CONC 30.3 g/dl (32.0-37.0); MEAN CORPUSCULAR VOLUME 98.1 fl (82.0-101.0); MEAN PLATELET VOLUME 10.3 fl (7.4-10.4); MONOCYTES % 5.5 % (0.0-11.0); NEUTROPHIL # 16.1 10^3/ul (1.6-7.5); NEUTROPHILS % 85.9 % (39.0-77.0); PLATELET COUNT 327 10^3/UL (140-415); RED BLOOD COUNT 3.23 10^6/ul (4.20-5.40); RED CELL DISTRIBUTION WIDTH 17.8 % (11.5-14.5)
[2017-09-28] MEDS: PANTOPRAZOLE 40 MG INJ IV ×2 (05:40→17:16)
[2017-09-28] MEDS: FUROSEMIDE 40 MG INJ IV ×2 (05:40→17:16)
[2017-09-28 05:56] LABS: ANION GAP 9 (8-16); BLOOD UREA NITROGEN 17 mg/dl (7-20); CALCIUM 8.2 mg/dl (8.4-10.2); CARBON DIOXIDE 39 mmol/L (21-31); CHLORIDE 98 mmol/L (97-110); CREATININE 0.66 mg/dl (0.44-1.00); GLUCOSE 74 mg/dl (70-220); MAGNESIUM 1.9 mg/dl (1.7-2.5); PHOSPHORUS 2.9 mg/dl (2.5-4.9); POTASSIUM 3.5 mmol/L (3.5-5.1); SODIUM 142 mmol/L (135-144)
[2017-09-28 08:14] LABS: Allen Test ACCEPTAB; Arterial Base Excess 12.4 mmol/L (-3.0-3); Arterial Blood Gas Oxygen Sat 94.6 mmHG (95.0-100.0); Arterial COHb 0.7 % (0.0-3.0); Arterial Fraction of Oxyhgb 93.7 % (93.0-99.0); Arterial HCO3 38.8 mmol/L (22.0-26.0); Arterial MetHb 0.3 % (0.0-1.5); Arterial Total Hemglobin 12.3 g/dl (12.0-18.0); MODE NASAL CANNULA; Site Right Radial
[2017-09-28] MEDS: FAMOTIDINE 20 MG INJ IV (09:34)
[2017-09-28] MEDS: METOPROLOL 25 MG TAB PO ×2 (09:37→21:11)
[2017-09-28] MEDS: CEFEPIME 1GM/50 ML (PMX) 50 ML IVPB ×3 (14:00→21:12)
[2017-09-28] MEDS: DOXYCYCLINE 100 MG in SOD CHLORIDE 0.9% 250 ML IVPB (21:11)
[2017-09-28] MEDS: INSULIN GLARGINE [LANTus] (100 UNITS/ML) SYG SC (21:18)
[2017-09-29] MEDS: DEXTROSE 50% 50 ML SYRINGE IV ×3 (00:34→20:49)
[2017-09-29] MEDS: INSULIN ASPART [NOVOLOG] 3 ML PEN SC ×6 (00:44→20:49)
[2017-09-29] MEDS: ALBUTEROL/IPRATROPIUM (NEB) 3 ML AMP HHN ×6 (00:51→20:21)
[2017-09-29] MEDS: ACCU-CHEK XX (02:00)
[2017-09-29] MEDS: PANTOPRAZOLE 40 MG INJ IV ×2 (05:24→18:30)
[2017-09-29] MEDS: FUROSEMIDE 40 MG INJ IV ×2 (05:24→17:24)
[2017-09-29 05:50] LABS: ADD MAN DIFF? NO
[2017-09-29 05:55] LABS: WHITE BLOOD COUNT 17.4 10^3/ul (4.8-10.8)
[2017-09-29 05:55] LABS: BASOPHILS % 0.2 % (0.0-2.0); EOSINOPHILS # 0.2 10^3/ul (0.0-0.5); HEMATOCRIT 31.8 % (37.0-47.0); HEMOGLOBIN 9.8 g/dl (12.0-16.0); LYMPHOCYTES # 1.2 10^3/ul (0.8-2.9); LYMPHOCYTES % 7.1 % (15.0-51.0); MEAN CORPUSCULAR HEMOGLOBIN 30.2 pg (29.0-33.0); MEAN CORPUSCULAR HGB CONC 30.8 g/dl (32.0-37.0); MEAN CORPUSCULAR VOLUME 98.1 fl (82.0-101.0); MONOCYTE # 1.3 10^3/ul (0.3-0.9); MONOCYTES % 7.6 % (0.0-11.0); NEUTROPHIL # 14.4 10^3/ul (1.6-7.5); NEUTROPHILS % 82.6 % (39.0-77.0); PLATELET COUNT 323 10^3/UL (140-415); RED BLOOD COUNT 3.24 10^6/ul (4.20-5.40); RED CELL DISTRIBUTION WIDTH 17.7 % (11.5-14.5)
[2017-09-29 06:43] LABS: ANION GAP 7 (8-16); BLOOD UREA NITROGEN 14 mg/dl (7-20); CALCIUM 7.8 mg/dl (8.4-10.2); CARBON DIOXIDE 38 mmol/L (21-31); CHLORIDE 98 mmol/L (97-110); CREATININE 0.69 mg/dl (0.44-1.00); GLUCOSE 87 mg/dl (70-220); MAGNESIUM 1.7 mg/dl (1.7-2.5); PHOSPHORUS 3.5 mg/dl (2.5-4.9); POTASSIUM 3.5 mmol/L (3.5-5.1); SODIUM 139 mmol/L (135-144)
[2017-09-29] MEDS: FAMOTIDINE 20 MG INJ IV (08:22)
[2017-09-29] MEDS: METOPROLOL 25 MG TAB PO ×2 (08:23→20:48)
[2017-09-29] MEDS: CEFEPIME 1GM/50 ML (PMX) 50 ML IVPB ×2 (08:23→20:44)
[2017-09-29] MEDS: DOXYCYCLINE 100 MG in SOD CHLORIDE 0.9% 250 ML IVPB ×2 (09:47→20:45)
[2017-09-29] MEDS: D5W-0.45 NACL + KCL 20 MEQ 1,000 ML IV (12:50)
[2017-09-29] MEDS: INSULIN GLARGINE [LANTus] (100 UNITS/ML) SYG SC (20:00)
[2017-09-30] MEDS: D5W-0.45 NACL + KCL 20 MEQ 1,000 ML IV ×3 (00:42→15:00)
[2017-09-30] MEDS: ALBUTEROL/IPRATROPIUM (NEB) 3 ML AMP HHN ×6 (01:00→21:00)
[2017-09-30] MEDS: INSULIN ASPART [NOVOLOG] 3 ML PEN SC ×6 (01:00→20:19)
[2017-09-30] MEDS: ACCU-CHEK XX (02:00)
[2017-09-30] MEDS: DEXTROSE 50% 50 ML SYRINGE IV (04:55)
[2017-09-30] MEDS: FUROSEMIDE 40 MG INJ IV ×2 (04:59→18:18)
[2017-09-30] MEDS: PANTOPRAZOLE 40 MG INJ IV ×2 (04:59→18:18)
[2017-09-30] MEDS ORDERED: LIDOCAINE 2% (SDV) 5 ML INJ (07:00)
[2017-09-30] MEDS: METOPROLOL 25 MG TAB PO ×2 (09:00→20:20)
[2017-09-30] MEDS: FAMOTIDINE 20 MG INJ IV (09:29)
[2017-09-30] MEDS: DOXYCYCLINE 100 MG in SOD CHLORIDE 0.9% 250 ML IVPB ×2 (09:30→20:59)
[2017-09-30] MEDS: CEFEPIME 1GM/50 ML (PMX) 50 ML IVPB ×2 (11:42→20:15)
[2017-09-30] MEDS: PROPOFOL 20 ML (15:02)
[2017-09-30] MEDS: INSULIN GLARGINE [LANTus] (100 UNITS/ML) SYG SC (20:23)
[2017-10-01] MEDS: ALBUTEROL/IPRATROPIUM (NEB) 3 ML AMP HHN ×6 (01:00→20:27)
[2017-10-01] MEDS: INSULIN ASPART [NOVOLOG] 3 ML PEN SC ×6 (01:00→21:00)
[2017-10-01] MEDS: ACCU-CHEK XX (01:52)
[2017-10-01] MEDS: D5W-0.45 NACL + KCL 20 MEQ 1,000 ML IV ×2 (02:00→05:18)
[2017-10-01] MEDS: PANTOPRAZOLE 40 MG INJ IV ×2 (05:44→17:34)
[2017-10-01] MEDS: FUROSEMIDE 40 MG INJ IV ×2 (05:44→17:34)
[2017-10-01 06:20] LABS: ADD MAN DIFF? NO
[2017-10-01 06:26] LABS: BASOPHIL # 0.1 10^3/ul (0.0-0.1); BASOPHILS % 0.6 % (0.0-2.0); EOSINOPHILS # 0.3 10^3/ul (0.0-0.5); HEMATOCRIT 33.6 % (37.0-47.0); HEMOGLOBIN 10.3 g/dl (12.0-16.0); LYMPHOCYTES # 1.6 10^3/ul (0.8-2.9); LYMPHOCYTES % 16.4 % (15.0-51.0); MEAN CORPUSCULAR HEMOGLOBIN 29.9 pg (29.0-33.0); MEAN CORPUSCULAR HGB CONC 30.7 g/dl (32.0-37.0); MEAN CORPUSCULAR VOLUME 97.7 fl (82.0-101.0); MONOCYTE # 0.6 10^3/ul (0.3-0.9); MONOCYTES % 6.1 % (0.0-11.0); NEUTROPHIL # 7.2 10^3/ul (1.6-7.5); NEUTROPHILS % 72.2 % (39.0-77.0); PLATELET COUNT 349 10^3/UL (140-415); RED BLOOD COUNT 3.44 10^6/ul (4.20-5.40); RED CELL DISTRIBUTION WIDTH 17.2 % (11.5-14.5)
[2017-10-01 07:10] LABS: ANION GAP 10 (8-16); BLOOD UREA NITROGEN 10 mg/dl (7-20); CALCIUM 8.2 mg/dl (8.4-10.2); CARBON DIOXIDE 35 mmol/L (21-31); CHLORIDE 99 mmol/L (97-110); GLUCOSE 82 mg/dl (70-220); POTASSIUM 3.3 mmol/L (3.5-5.1); SODIUM 141 mmol/L (135-144)
[2017-10-01] MEDS: METOPROLOL 25 MG TAB PO ×2 (08:30→21:07)
[2017-10-01] MEDS: FAMOTIDINE 20 MG INJ IV (08:31)
[2017-10-01] MEDS: CEFEPIME 1GM/50 ML (PMX) 50 ML IVPB ×2 (08:31→23:26)
[2017-10-01] MEDS: DOXYCYCLINE 100 MG in SOD CHLORIDE 0.9% 250 ML IVPB ×2 (10:12→21:08)
[2017-10-01] MEDS: POTASSIUM CHLORIDE 20 MEQ POWDER FOR ORAL SOLN NGT (18:09)
[2017-10-01] MEDS: INSULIN GLARGINE [LANTus] (100 UNITS/ML) SYG SC (21:30)
[2017-10-02] MEDS: ALBUTEROL/IPRATROPIUM (NEB) 3 ML AMP HHN ×6 (01:00→20:34)
[2017-10-02] MEDS: INSULIN ASPART [NOVOLOG] 3 ML PEN SC ×6 (01:20→23:05)
[2017-10-02] MEDS: ACCU-CHEK XX (02:00)
[2017-10-02] MEDS: FUROSEMIDE 40 MG INJ IV ×2 (06:08→17:10)
[2017-10-02] MEDS: PANTOPRAZOLE 40 MG INJ IV ×2 (06:08→17:10)
[2017-10-02 06:14] LABS: ADD MAN DIFF? NO
[2017-10-02 06:23] LABS: BASOPHIL # 0.1 10^3/ul (0.0-0.1); BASOPHILS % 0.7 % (0.0-2.0); EOSINOPHILS # 0.3 10^3/ul (0.0-0.5); HEMATOCRIT 35.2 % (37.0-47.0); HEMOGLOBIN 10.8 g/dl (12.0-16.0); LYMPHOCYTES # 1.4 10^3/ul (0.8-2.9); LYMPHOCYTES % 14.1 % (15.0-51.0); MEAN CORPUSCULAR HEMOGLOBIN 29.6 pg (29.0-33.0); MEAN CORPUSCULAR HGB CONC 30.7 g/dl (32.0-37.0); MEAN CORPUSCULAR VOLUME 96.4 fl (82.0-101.0); MEAN PLATELET VOLUME 9.9 fl (7.4-10.4); MONOCYTE # 0.8 10^3/ul (0.3-0.9); MONOCYTES % 7.5 % (0.0-11.0); NEUTROPHIL # 7.5 10^3/ul (1.6-7.5); NEUTROPHILS % 73.1 % (39.0-77.0); PLATELET COUNT 389 10^3/UL (140-415); RED BLOOD COUNT 3.65 10^6/ul (4.20-5.40); RED CELL DISTRIBUTION WIDTH 17.1 % (11.5-14.5)
[2017-10-02 06:23] LABS: WHITE BLOOD COUNT 10.2 10^3/ul (4.8-10.8)
[2017-10-02 06:47] LABS: ANION GAP 9 (8-16); BLOOD UREA NITROGEN 12 mg/dl (7-20); CALCIUM 8.4 mg/dl (8.4-10.2); CARBON DIOXIDE 37 mmol/L (21-31); CHLORIDE 98 mmol/L (97-110); CREATININE 0.79 mg/dl (0.44-1.00); GLUCOSE 114 mg/dl (70-220); POTASSIUM 3.7 mmol/L (3.5-5.1); SODIUM 140 mmol/L (135-144)
[2017-10-02] MEDS: CEFEPIME 1GM/50 ML (PMX) 50 ML IVPB ×2 (08:50→20:46)
[2017-10-02] MEDS: FAMOTIDINE 20 MG INJ IV (08:53)
[2017-10-02] MEDS: METOPROLOL 25 MG TAB PO ×2 (08:54→20:47)
[2017-10-02] MEDS: DOXYCYCLINE 100 MG in SOD CHLORIDE 0.9% 250 ML IVPB ×2 (09:37→20:48)
[2017-10-02] MEDS: INSULIN GLARGINE [LANTus] (100 UNITS/ML) SYG SC (20:56)
[2017-10-03] MEDS: ALBUTEROL/IPRATROPIUM (NEB) 3 ML AMP HHN ×6 (01:00→21:16)
[2017-10-03] MEDS: ACCU-CHEK XX (02:00)
[2017-10-03] MEDS: INSULIN ASPART [NOVOLOG] 3 ML PEN SC ×6 (03:10→20:59)
[2017-10-03 06:32] LABS: ADD MAN DIFF? NO
[2017-10-03 06:43] LABS: BASOPHIL # 0.1 10^3/ul (0.0-0.1); BASOPHILS % 0.4 % (0.0-2.0); EOSINOPHILS # 0.4 10^3/ul (0.0-0.5); EOSINOPHILS % 2.6 % (0.0-7.0); HEMOGLOBIN 12.6 g/dl (12.0-16.0); LYMPHOCYTES # 2.1 10^3/ul (0.8-2.9); LYMPHOCYTES % 13.7 % (15.0-51.0); MEAN CORPUSCULAR HEMOGLOBIN 30.3 pg (29.0-33.0); MEAN CORPUSCULAR HGB CONC 31.5 g/dl (32.0-37.0); MEAN CORPUSCULAR VOLUME 96.2 fl (82.0-101.0); MEAN PLATELET VOLUME 10.3 fl (7.4-10.4); MONOCYTES % 6.7 % (0.0-11.0); NEUTROPHIL # 11.4 10^3/ul (1.6-7.5); NEUTROPHILS % 75.4 % (39.0-77.0); PLATELET COUNT 398 10^3/UL (140-415); RED BLOOD COUNT 4.16 10^6/ul (4.20-5.40); RED CELL DISTRIBUTION WIDTH 16.7 % (11.5-14.5)
[2017-10-03 06:43] LABS: WHITE BLOOD COUNT 15.1 10^3/ul (4.8-10.8)
[2017-10-03] MEDS: PANTOPRAZOLE 40 MG INJ IV ×2 (06:49→17:19)
[2017-10-03] MEDS: FUROSEMIDE 40 MG INJ IV ×2 (06:49→17:18)
[2017-10-03 07:14] LABS: ANION GAP 14 (8-16); BLOOD UREA NITROGEN 23 mg/dl (7-20); CALCIUM 8.8 mg/dl (8.4-10.2); CARBON DIOXIDE 39 mmol/L (21-31); CHLORIDE 92 mmol/L (97-110); CREATININE 0.83 mg/dl (0.44-1.00); GLUCOSE 119 mg/dl (70-220); POTASSIUM 3.7 mmol/L (3.5-5.1); SODIUM 141 mmol/L (135-144)
[2017-10-03] MEDS: METOPROLOL 25 MG TAB PO ×2 (09:00→20:52)
[2017-10-03] MEDS: CEFEPIME 1GM/50 ML (PMX) 50 ML IVPB ×2 (09:01→21:02)
[2017-10-03] MEDS: FAMOTIDINE 20 MG INJ IV (09:01)
[2017-10-03] MEDS: DOXYCYCLINE 100 MG in SOD CHLORIDE 0.9% 250 ML IVPB ×2 (11:12→21:42)
[2017-10-03] MEDS: INSULIN GLARGINE [LANTus] (100 UNITS/ML) SYG SC (20:51)
[2017-10-04] MEDS: ALBUTEROL/IPRATROPIUM (NEB) 3 ML AMP HHN ×5 (00:51→17:00)
[2017-10-04] MEDS: INSULIN ASPART [NOVOLOG] 3 ML PEN SC ×5 (01:23→17:28)
[2017-10-04] MEDS: ACCU-CHEK XX (02:23)
[2017-10-04] MEDS: FUROSEMIDE 40 MG INJ IV ×2 (05:23→17:21)
[2017-10-04] MEDS: PANTOPRAZOLE 40 MG INJ IV ×2 (05:25→17:21)
[2017-10-04 06:24] LABS: ADD MAN DIFF? NO
[2017-10-04 06:33] LABS: BASOPHIL # 0.1 10^3/ul (0.0-0.1); BASOPHILS % 0.5 % (0.0-2.0); EOSINOPHILS # 0.4 10^3/ul (0.0-0.5); EOSINOPHILS % 2.4 % (0.0-7.0); HEMATOCRIT 36.1 % (37.0-47.0); HEMOGLOBIN 11.4 g/dl (12.0-16.0); LYMPHOCYTES # 1.6 10^3/ul (0.8-2.9); LYMPHOCYTES % 9.9 % (15.0-51.0); MEAN CORPUSCULAR HEMOGLOBIN 30.5 pg (29.0-33.0); MEAN CORPUSCULAR HGB CONC 31.6 g/dl (32.0-37.0); MEAN CORPUSCULAR VOLUME 96.5 fl (82.0-101.0); MEAN PLATELET VOLUME 10.2 fl (7.4-10.4); MONOCYTES % 6.2 % (0.0-11.0); NEUTROPHILS % 79.7 % (39.0-77.0); PLATELET COUNT 398 10^3/UL (140-415); RED BLOOD COUNT 3.74 10^6/ul (4.20-5.40); RED CELL DISTRIBUTION WIDTH 16.8 % (11.5-14.5)
[2017-10-04 06:33] LABS: WHITE BLOOD COUNT 16.3 10^3/ul (4.8-10.8)
[2017-10-04 07:12] LABS: ANION GAP 10 (8-16); BLOOD UREA NITROGEN 33 mg/dl (7-20); CALCIUM 8.3 mg/dl (8.4-10.2); CARBON DIOXIDE 37 mmol/L (21-31); CHLORIDE 92 mmol/L (97-110); CREATININE 0.83 mg/dl (0.44-1.00); GLUCOSE 160 mg/dl (70-220); POTASSIUM 3.3 mmol/L (3.5-5.1); SODIUM 136 mmol/L (135-144)
[2017-10-04] MEDS: CEFEPIME 1GM/50 ML (PMX) 50 ML IVPB (10:11)
[2017-10-04] MEDS: FAMOTIDINE 20 MG INJ IV (10:11)
[2017-10-04] MEDS: METOPROLOL 25 MG TAB PO (10:14)
[2017-10-04] MEDS: DOXYCYCLINE 100 MG in SOD CHLORIDE 0.9% 250 ML IVPB (11:17)
[2017-10-04] MEDS: PIPER-TAZO 3.375 GM IV (PMX) 100 ML IVPB (15:23)
== END 2017-10-04 20:49 | DRG 870 ==
LOC: TEL 09-18 17:54 → ICU 09-24 19:48 → 6WM 09-28 18:44 → BAR 10-04 19:47 → ICU 05:32 → 6WM 09-30 15:04 → E/R 05:09 → ICU 09-24 19:50 → 6WM 10-04 19:47
PROC: 06HY33Z Insertion of Infusion Device into Lower Vein, Percutaneous Approach (ICD-10-PCS; principal; 2017-09-30 12:16)
PROC: 5A1955Z Respiratory Ventilation, Greater than 96 Consecutive Hours (ICD-10-PCS; 2017-09-30 12:16)
PROC: 0BH17EZ Insertion of Endotracheal Airway into Trachea, Via Natural or Artificial Opening (ICD-10-PCS; 2017-09-30 12:16)
PROC: 0DB68ZX Excision of Stomach, Via Natural or Artificial Opening Endoscopic, Diagnostic (ICD-10-PCS; 2017-09-30 12:16)
PROC: 02HV33Z Insertion of Infusion Device into Superior Vena Cava, Percutaneous Approach (ICD-10-PCS; 2017-09-30 12:16)
PROC: 5A09457 Assistance with Respiratory Ventilation, 24-96 Consecutive Hours, Continuous Positive Airway Pressure (ICD-10-PCS; 2017-09-30 12:16)
PROC: 30233N1 Transfusion of Nonautologous Red Blood Cells into Peripheral Vein, Percutaneous Approach (ICD-10-PCS; 2017-09-30 12:16)
DX: A41.59 Other Gram-negative sepsis (principal); J96.00 Acute respiratory failure, unspecified whether with hypoxia or hypercapnia; J18.9 Pneumonia, unspecified organism; R65.21 Severe sepsis with septic shock; I50.33 Acute on chronic diastolic (congestive) heart failure; N17.9 Acute kidney failure, unspecified; N39.0 Urinary tract infection, site not specified; K92.2 Gastrointestinal hemorrhage, unspecified; E87.3 Alkalosis; D62 Acute posthemorrhagic anemia; E11.9 Type 2 diabetes mellitus without complications; E78.5 Hyperlipidemia, unspecified; F03.90 Unspecified dementia, unspecified severity, without behavioral disturbance, psychotic disturbance, mood disturbance, and anxiety; E87.6 Hypokalemia; E86.0 Dehydration; I11.0 Hypertensive heart disease with heart failure; I48.0 Paroxysmal atrial fibrillation; I48.2 Chronic atrial fibrillation; L25.9 Unspecified contact dermatitis, unspecified cause; K29.70 Gastritis, unspecified, without bleeding; B96.20 Unspecified Escherichia coli [E. coli] as the cause of diseases classified elsewhere; R91.8 Other nonspecific abnormal finding of lung field
CPT/HCPCS: 31500; 36430; 36569; 36600; 70450; 71045; 76937; 80048; 80053; 80061; 80202; 81001; 82140; 82270; 82607; 82728; 82746; 82803; 82962; 83036; 83540; 83605; 83735; 83880; 84100; 84443; 84484; 85014; 85018; 85025; 85045; 85610; 85730; 86850; 86900; 86901; 86920; 87040; 87070; 87081; 87086; 88305; 88312; 92526; 92610; 93005; 93306; 94002; 94003; 94640; 94660; 94664; 94770; 99291-25; J1120

== ENCOUNTER 2017-10-17 10:03 | Day surgery (SDC) | payer OTHER, MEDICARE ==
[2017-10-17] MEDS ORDERED: CEFAZOLIN 1 GM/50 ML (PMX) 50 ML IVPB (11:48)
[2017-10-17] MEDS ORDERED: PROPOFOL 20 ML (11:58)
== END 2017-10-17 13:16 | disposition home or self-care (01) ==
LOC: GIL 10:03
DX: R13.10 Dysphagia, unspecified (principal); F03.90 Unspecified dementia, unspecified severity, without behavioral disturbance, psychotic disturbance, mood disturbance, and anxiety; D64.9 Anemia, unspecified; E03.9 Hypothyroidism, unspecified; E11.9 Type 2 diabetes mellitus without complications; J44.9 Chronic obstructive pulmonary disease, unspecified; I50.9 Heart failure, unspecified; I10 Essential (primary) hypertension
CPT/HCPCS: 43246

== ENCOUNTER 2018-05-01 09:57 | Emergency (ER) | payer MEDICARE, OTHER ==
[2018-05-01] MEDS: HYDROCODONE/APAP (10/325) TAB PO (10:50)
[2018-05-01] MEDS: ONDANSETRON (ODT) 4 MG TAB ODT (11:48)
[2018-05-01] MEDS: HYDROmorphONE 0.5 MG/0.5 ML SYG IM (11:48)
== END 2018-05-01 13:25 | disposition home or self-care (01) ==
LOC: E/R 09:57
DX: S32.020A Wedge compression fracture of second lumbar vertebra, initial encounter for closed fracture (principal); R40.2142 Coma scale, eyes open, spontaneous, at arrival to emergency department; R40.2362 Coma scale, best motor response, obeys commands, at arrival to emergency department; R40.2252 Coma scale, best verbal response, oriented, at arrival to emergency department; J44.9 Chronic obstructive pulmonary disease, unspecified; I50.9 Heart failure, unspecified; W19.XXXA Unspecified fall, initial encounter; Y92.9 Unspecified place or not applicable; Z79.82 Long term (current) use of aspirin; Z79.4 Long term (current) use of insulin
CPT/HCPCS: 72131; 96372; 99285-25